=== PATIENT | female | born 1940 | race Caucasian/White ===

== ENCOUNTER 2020-01-10 13:23 | Outpatient (CLI) | payer MEDICARE, SELFPAY ==
--- NOTE | ~2020-01-10 | MMUS_ITS ---
EXAMINATION: MM screen RT diag LT w stephanie, US breast LT limited HISTORY: Screening right breast. Follow-up of left breast masses. TECHNIQUE: ML, MLO and craniocaudal 3-D tomosynthesis images of both breasts were performed and synth etic 2-D images were generated. CAD analysis was submitted and interpreted. High resolution limited l eft follow-up breast ultrasound was performed. COMPARISON: 05/20/2019 diagnostic left digital mammogram and left breast ultrasound BREAST PARENCHYMAL COMPOSITION: The breasts are almost entirely fatty. FINDINGS: MAMMOGRAPHIC FINDINGS: No suspicious mass or architectural distortion, malignant calcification, skin thickening or retractio n or significant new or developing density is detected. Occasional bilateral benign calcifications. ULTRASOUND: At 5:00 2 cm from the nipple there are 2 circumscribed hypoechoic areas without suspicious internal v ascularity or shadowing, one measuring 1.8 x 2.4 x 2.0 mm, the other measuring 5.6 x 2.7 x 3.3 mm. IMPRESSION: 1. No mammographic evidence of malignancy 2. Routine mammographic screening follow-up is recommended BI-RADS Category 2: Benign finding(s). Reviewed, dictated and finalized at location A. IMPRESSION: 1. No mammographic evidence of malignancy 2. Routine mammographic screening follow-up is recommended BI-RADS Category 2: Benign finding(s).
== END 2020-01-10 13:24 | disposition home or self-care (01) ==
PROVIDERS: PCP Family Medicine; Visit Provider Surgery
DX: R92.8 Other abnormal and inconclusive findings on diagnostic imaging of breast (principal); Z12.31 Encounter for screening mammogram for malignant neoplasm of breast
CPT/HCPCS: 76642; 77063; 77065; 77067

== ENCOUNTER 2020-09-19 10:36 | Outpatient (CLI) | payer MEDICARE, SELFPAY | END 2020-09-19 10:37 | disposition home or self-care (01) | PROVIDERS: PCP Family Medicine | DX: Z23 Encounter for immunization (principal) | CPT/HCPCS: 0001A; 91300 ==

== ENCOUNTER 2020-10-10 10:31 | Outpatient (CLI) | payer MEDICARE, SELFPAY | END 2020-10-10 10:32 | disposition home or self-care (01) | LOC: ANHCOVIDVC 10:31 | PROVIDERS: PCP Family Medicine | DX: Z23 Encounter for immunization (principal) | CPT/HCPCS: 0002A; 91300 ==

== ENCOUNTER 2021-02-05 15:59 | Outpatient (CLI) | payer MEDICARE, SELFPAY ==
--- NOTE | ~2021-02-05 | MM_ITS ---
EXAMINATION: MM screening [facility] BI w stephanie HISTORY: Screening TECHNIQUE: Craniocaudal and mediolateral oblique 3-D tomosynthesis images were obtained and synthetic 2-D images were generated. CAD analysis was submitted and interpreted. COMPARISON: Comparison to multiple prior studies sequentially, with oldest reviewed study dated 10/12. BREAST PARENCHYMAL COMPOSITION: There are scattered areas of fibroglandular density. FINDINGS: There is no evidence of suspicious mass, calcification, or architectural distortion to sugg est malignancy in either breast. There has been no suspicious interval change. IMPRESSION: 1. No mammographic evidence of malignancy. 2. Recommend routine screening mammography in one year. BI-RADS Category 1: Negative Reviewed, dictated and finalized at location A.
== END 2021-02-05 16:00 | disposition home or self-care (01) ==
LOC: ANHIMG 16:05
PROVIDERS: PCP Family Medicine; Visit Provider Family Medicine
DX: Z12.31 Encounter for screening mammogram for malignant neoplasm of breast (principal)
CPT/HCPCS: 77063; 77067

== ENCOUNTER 2021-11-18 13:30 | Outpatient (RCR) | payer MEDICARE, SELFPAY ==
--- NOTE | 2021-09-24 16:32 | PTOPEVAL ---
PHYSICAL THERAPY INITIAL EVALUATION. Thank you for referring Ashleigh Serrano to [facility].? The patient is scheduled to be seen for therapy? 2x/week for 4 weeks. Please review, sign, date and return this plan of care MELANIA. I agree with and certify that the following plan of care is medically necessary. Referring Physician Date Attending Provider: Geoff Clement MD *PT Outpatient Evaluation Start: 09/24/21 Evaluation Information Diagnosis Dizziness Onset ~ a year Subjective Information Pt states she has been very Query Text:As Reported By Patient/ wobbly on her feet recently. Family This happened years ago and it was resolved with high BP medication. Now, her BP is still under control, and there is not the wax in her ears. She has a current history of vertigo but her current loss of balance is not due to this. Pt reports one fall in the last 6 months due to loss of balance. Pt is able to get up on her own but it requires increased time. Pt has been using a cane in the community for the last year. Pain Assessment Pain Score 0: Self Report Lower Extremity Range of Motion General Lower Extremity Range of Motion WFL/Left,WFL/Right Lower Extremity Muscle Strength Testing Gross Lower Extremity Strength B hips 4-/5 B knees 4-/5 B ankles 4/5 L SLS: <1s R SLS: <1s Balance Assessment Coe Balance Assessment COE Balance Evaluation Total Score 34/56 Time Up Go (TUG) Timed Up and Go Test (TUG) (Seconds) 15 Assistive Devices Cane, Straight 5 Time Sit to Stand Time in Seconds 19 5 Time Sit to Stand Comments With use of UEs, attempted Query Text:Normative Data: If Greater without UEs and was Than 15 Seconds, 74% Increase Risk for unsuccessful Recurrent Falls Gait Assessment Ambulation Assistive Devices Cane, Small Base Quad Gait Pattern Observed Decreased Stride Length - Left ,Decreased Stride Length - Right,Excessive Knee Flex - Left,Excessive Knee Flex - Right,No Heel Strike - Left,No Heel Strike - Right Other Gait Observations Decreased gait speed, step length, and stride length
--- NOTE | 2021-10-21 16:34 | PTOPEVAL ---
PHYSICAL THERAPY PROGRESS REPORT. Thank you for referring Ashleigh Serrano to [facility] [place].? The patient is scheduled to be seen for therapy? 1x/week for 4 weeks. Please review, sign, date and return this plan of care MELANIA. I agree with and certify that the following plan of care is medically necessary. Referring Physician Date Attending Provider: Geoff Clement MD Evaluation Information Diagnosis Dizziness Onset ~ a year Subjective Information Pt states things are going Query Text:As Reported By Patient/ really well. She states she Family feel more confident at home, and most of the time while she is at work. She got a LE bike that can be placed in front of her chair. Pt states her biggest challenges is still remembering to slow down. If she is standing for too long she will get tired but this has improved. Pt reported 25% improvement. Pain Assessment Pain Score 0: Self Report Lower Extremity Range of Motion General Lower Extremity Range of Motion Reason Not Measured WFL/Left,WFL/Right Lower Extremity Muscle Strength Testing General Lower Extremity Strength Gross Lower Extremity Strength B hips 4-/5 B knees 4-/5 B ankles 4/5 L SLS: <1s R SLS: <1s Balance Assessment Coe Balance Assessment COE Balance Evaluation Total Score (/56 39/56 Time Up Go (TUG) Timed Up and Go Test (TUG) (Seconds) 17 Assistive Devices Cane, Straight Comments Initially: 15s 10/21/21: 17s - pt reports improved confidence 5 Time Sit to Stand Time in Seconds 20 5 Time Sit to Stand Comments Initially: 19s with use of UEs Query Text:Normative Data: If Greater , attempted without UEs and Than 15 Seconds, 74% Increase Risk for was unsuccessful Recurrent Falls 10/21/21: 20s with use of UEs, able to complete 1 without UEs Gait Assessment Gait Pattern Observed Decreased Stride Length - Left ,Decreased Stride Length - Right,Excessive Knee Flex - Left,Excessive Knee Flex - Right,No Heel Strike - Left,No Heel Strike - Right Other Gait Observations Decreased gait speed, step length, and stride length bilaterally. Foot flat contact
--- NOTE | 2021-11-18 14:26 | PTOPEVAL ---
PHYSICAL THERAPY PROGRESS REPORT AND DISCHARGE SUMMARY. Thank you for referring Ashleigh Serrano to [facility].? The patient is scheduled to be discharged at this time. Please review, sign, date and return this plan of care MELANIA. I agree with and certify that the following plan of care is medically necessary. Referring Physician Date Attending Provider: Geoff Clement MD Evaluation Information Diagnosis Unsteadiness Onset ~ a year Subjective Information Pt states she feels like she Query Text:As Reported By Patient/ is making progress. She states Family family members have mentioned that she looks like she is walking better. She states she feel less wobbly on her feet. Pt states she is very pleased with her progress and where she is now. Pain Score 0: Self Report Lower Extremity Range of Motion General Lower Extremity Range of Motion WFL/Left,WFL/Right Lower Extremity Muscle Strength Testing Gross Lower Extremity Strength B hips 4+/5 L knee fleixon/ext 4/5 R knee flexion/ext 4+/5 B ankles 4+/5 L SLS: <1s R SLS: <2s Balance Assessment Coe Balance Assessment COE Balance Evaluation Total Score 44/56 Time Up Go (TUG) Timed Up and Go Test (TUG) (Seconds) 17 Comments Initially: 15s 10/21/21: 17s - pt reports improved confidence 11/18/21: 17s without AD 5 Time Sit to Stand Time in Seconds 20 5 Time Sit to Stand Comments Initially: 19s with use of UEs Query Text:Normative Data: If Greater , attempted without UEs and Than 15 Seconds, 74% Increase Risk for was unsuccessful Recurrent Falls 10/21/21: 20s with use of UEs, able to complete 1 without UEs 11/18/21: 20s with use of UEs, able to complete 2 without UEs Gait Assessment Ambulation Assistive Devices Cane Cues Needed For Ambulation Verbal,Tactile Additional Ambulation Comments Cue for proper height of straight cane and sequencing Gait Pattern Assessment Gait Pattern Observed Decreased Stride Length - Left ,Decreased Stride Length - Right,Excessive Knee Flex - Left,Excessive Knee Flex - Right,No Heel Strike - Left,No Heel Strike - Right Other Gait Observations Decreased gait speed, step
== END 2021-11-20 08:41 | disposition home or self-care (01) ==
LOC: ANHPT 13:30
PROVIDERS: PCP Family Medicine; Referring Provider Family Medicine; Visit Provider Family Medicine
DX: R42 Dizziness and giddiness (principal)
CPT/HCPCS: 97110; 97112; 97116; 97161; 97530

== ENCOUNTER 2022-03-14 09:36 | Outpatient (CLI) | payer MEDICARE, SELFPAY ==
--- NOTE | ~2022-03-14 | MM_ITS ---
EXAMINATION: MM screening [facility] BI w stephanie HISTORY: Screening TECHNIQUE: Craniocaudal and mediolateral oblique 3-D tomosynthesis images were obtained and synthetic 2-D images were generated. CAD analysis was submitted and interpreted. COMPARISON: Comparison to multiple prior studies sequentially, with oldest reviewed study dated 11/01. BREAST PARENCHYMAL COMPOSITION: There are scattered areas of fibroglandular density. FINDINGS: There is no evidence of suspicious mass, calcification, or architectural distortion to sugg est malignancy in either breast. There has been no suspicious interval change. IMPRESSION: 1. No mammographic evidence of malignancy. 2. Recommend routine screening mammography in one year. BI-RADS Category 1: Negative Reviewed, dictated and finalized at location A.
== END 2022-03-14 09:37 | disposition home or self-care (01) ==
LOC: ANHIMG 09:38
PROVIDERS: PCP Family Medicine; Visit Provider Family Medicine
DX: Z12.31 Encounter for screening mammogram for malignant neoplasm of breast (principal)
CPT/HCPCS: 77063; 77067

== ENCOUNTER 2023-06-05 08:38 | Outpatient (CLI) | payer MEDICARE, SELFPAY ==
--- NOTE | ~2023-06-05 | MM_ITS ---
EXAMINATION: MM screening [facility] BI w stephanie HISTORY: Screening mammogram TECHNIQUE: Craniocaudal and mediolateral oblique 3-D tomosynthesis images were obtained and synthetic 2-D images were generated. CAD analysis was submitted and interpreted. COMPARISON: 03/14/2022, 02/05/2021 bilateral screening mammogram examinations BREAST PARENCHYMAL COMPOSITION: There are scattered areas of fibroglandular density. FINDINGS: Scattered bilateral benign calcifications. There is no evidence of suspicious mass, calcifi cation, or architectural distortion to suggest malignancy in either breast. There has been no suspici ous interval change. IMPRESSION: 1. No mammographic evidence of malignancy. 2. Recommend routine screening mammography in one year. BI-RADS Category 2: Benign finding(s). Reviewed, dictated and finalized at location B. TABLE SCULLION
== END 2023-06-05 08:39 | disposition home or self-care (01) ==
PROVIDERS: PCP Family Medicine; Visit Provider Family Medicine
DX: Z12.31 Encounter for screening mammogram for malignant neoplasm of breast (principal)
CPT/HCPCS: 77063; 77067

== ENCOUNTER 2024-06-23 14:11 | Emergency (ER) | payer OTHER, MEDICARE, SELFPAY ==
--- NOTE | ~2024-06-23 | XR_ITS ---
XR chest 2V Ordering provider: Edmundo Bustamante MD History: 84 years Female with . right sided chest wall pain . Comparison: None. FINDINGS: MEDIASTINUM: The cardiac silhouette is not enlarged. LUNGS: No infiltrates, effusions or pneumothorax. OTHER: No free air under the diaphragm. Degenerative changes of the spine. IMPRESSION: No acute cardiopulmonary pathology. Reviewed, dictated and finalized at location A. ATE WATCHMAN
[2024-06-23 14:39] VITALS: BP 144/88; PULSE 76; RESP 18; TEMP 36.2; O2SAT 97
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
--- NOTE | 2024-06-23 17:04 | PC.NURSE ---
PT SEEN AMBULATING FROM THE DEPT.
== END 2024-06-23 17:26 | disposition home or self-care (01) ==
PROVIDERS: Emergency Provider Emergency Medicine; PCP Family Medicine
DX: S61.412A Laceration without foreign body of left hand, initial encounter (principal); W22.10XA Striking against or struck by unspecified automobile airbag, initial encounter; V89.2XXA Person injured in unspecified motor-vehicle accident, traffic, initial encounter; R07.89 Other chest pain; I10 Essential (primary) hypertension; E78.2 Mixed hyperlipidemia; E11.9 Type 2 diabetes mellitus without complications
CPT/HCPCS: 71046; 99283

== ENCOUNTER 2024-08-19 08:34 | Outpatient (CLI) | payer MEDICARE, SELFPAY ==
--- NOTE | ~2024-08-19 | NM_ITS ---
EXAM: NM gastric emptying study DATE: 08/19/2024 13:32 INDICATION: Nausea with vomiting, unspecified. TECHNIQUE: A gastric emptying study was performed using the methodology of Roxie MCCONNELL, et al. J Nucl Med 2007; 48:568-572. The patient was given a meal consisting of 2 scrambled eggs labeled with 0.979 mCi Tc-99m sulfur colloid, 2 slices of toast, two packages of jam, and approximately 120 mL of water . Simultaneous anterior and posterior 1-min images of the abdomen were obtained with the patient supi ne at multiple time points over a total period of 4 hours. The geometric mean of anterior and posteri or views was determined, and the percentage retention was calculated for each time point. COMPARISON: None. FINDINGS: Gastric retention of the radiotracer-labeled meal was 77%, 55%, and 27% at the 1-hour, 2-h our, and 4-hour time points, respectively. With this technique, apparent rapid gastric emptying is jara ggested by <30% gastric retention at 1 hour. Delayed gastric emptying is defined by gastric retention of >90% at 1 hour, >60% retention at 2 hours, or >10% retention at 4 hours. IMPRESSION: 1. Delayed gastric emptying. Reviewed, dictated and finalized at location A. S DEVELOPMENT SPECIALIST
--- OUTSIDE RECORDS SUMMARY | 2024-08-19 08:42 | XMS_ITS | Referral Summary ---
Author Organization [facility] Address [address] [place] [address] Care Team Providers Care Liquor Rectifier Name Role Phone Geoff Clement MD Primary Care Provider [phone] Source Comments [facility],non-owned Affiliates and Associated Physician Practices is amultiple site organization consisting of ambulatory clinics and hospital sitesin [place], [place], [place] and [place]. This disclosure is being madepursuant to the Care Everywhere program and may not contain all information available regarding this patient. Last updated [facility] Encounters Date Type Department Care Team Description 06/26/2024 11:48 AM HOT BRAIDER - 07/15/2024 2:18 PM [facility] Hospital Encounter [facility] [address] [place] [phone] Calderon Sim MD Bisesi, DO Danie Poe Randall C, MD Behr, MD Leander Rausch Fajun, MD Hayat, Ghazala S, MD Soudagar Turkey, Momina, MD Chinnery, Akrin, MD Neurology Discharge Disposition: Rehab:Inpatient 06/26/2024 Travel from Last 3 Months Allergies No known active allergies Medications * Be aware that medications may not be up to date on this document. Alwaysverify current medications with the patient. Medication Sig Dispensed Refills Start Date End Date Status benazepril (Lotensin) 40 MG tablet Take 1 (one) tablet by mouth once daily 04/07/2024 Active metFORMIN ER 24hr (Glucophage XR) 500 MG tablet Take 4 (four) tablets by mouth once daily 05/09/2024 Active Trulicity 0.75 MG/0.5ML injection Inject 0.75 (three-quarters) mg subcutaneously every 7 days 06/22/2024 Active amLODIPine (Norvasc) 5 MG tablet Take 1 (one) tablet by mouth once daily 07/16/2024 Active atorvastatin (Lipitor) 80 MG tablet Take 1 (one) tablet by mouth at bedtime 07/15/2024 Active acetaminophen (Tylenol) 325 MG tablet Take 2 (two) tablets by mouth every 6 hours as needed Maximum allowable Acetaminophen amount = 4 Grams (4000 mg) / 24 hours. 07/15/2024 Active aspirin (Aspirin) 81 MG chew tablet Take 1 (one) tablet by mouth once daily 07/16/2024 Active levETIRAcetam (Keppra) 750 MG tablet Take 2 (two) tablets by mouth 2 times daily 07/15/2024 Active lidocaine (Lidoderm) 5 % patch Apply 1 (one) patch to skin every 24 hours Apply patch to most painful area and remove after 12 hours. May reapply a new patch 12 hours later. 07/16/2024 Active loperamide (Imodium) 2 MG capsule Take 1 (one) capsule by mouth 4 times daily as needed for Diarrhea 07/15/2024 Active cephalexin (Keflex) 500 MG capsuleIndication s:Uncomplicated Urinary Tract Infection Take 1 (one) capsule by mouth 2 times daily for 7 days Reasons: Simple Infection of the Urinary Tract 07/15/2024 07/22/2024 Active Problems Problem Noted Date Diagnosed Date Seizure 07/06/2024 DMII (diabetes mellitus, type 2) 06/27/2024 HLD (hyperlipidemia) 06/27/2024 HTN (hypertension) 06/27/2024 Arthritis 06/27/2024 History of knee replacement procedure of left kn ee 06/27/2024 Left-sided weakness 06/27/2024 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 Neglect of one side of body 06/27/2024 Altered mental status, unspe cified altered mental status type 06/26/2024 Hemothorax on right 06/26/2024 Closed fracture of body of sternum, initial enco unter 06/26/2024 Closed fracture of multiple ribs of right side, initial encounter 06/26/2024 Social History Tobacco Use Types Packs/Day Years Used Date Smoking Tobacco: Former Cigarettes Smokeless Tobacco: Current Tobacco Cessation:Ready to Q uit: Not Asked; Counseling Given: No Alcohol Use Standard Drinks/Week Comments Not Currently 0 (1 standard drink = 0.6 oz pur e alcohol) AUDIT-C Answer Date Recorded Q1: How often do you have a drink containing alcohol? Never 06/26/2024 Q2: How many drinks containi ng alcohol do you have on a typical day when you are drinking? Patient does not drink Q3: How often do you have si x or more drinks on one occasion? Never 06/26/2024 Overall Financial Resource Strain (CARDIA) Answe r Date Recorded How hard is it for you to pa y for the very basics like food, housing, medical care, and heating? Not very hard 07/15/2024 PHQ-2 Answer Date Recorded Patient Health Questionnaire-2 Score 0 07/07/2024 [facility] - Occupational Stress Questionnaire Answer Date Recorded Do you feel stress - tense, restless, nervous, or anxious, or unable to sleep at night because your mind is troubled all the time - these days? Not at all 07/15/2024 Hunger Vital Sign Answer Date Recorded Within the past 12 months, y ou worried that your food would run out before you got the money to buy more. Never true 07/15/20 24 Within the past 12 months, t he food you bought just didn't last and you didn't have money to get more. Never true 07/15/2024 PRAPARE - Transportation Answer Date Re corded In the past 12 months, has l ack of transportation kept you from medical appointments or from getting medications? No 06/20 In the past 12 months, has l ack of transportation kept you from meetings, work, or from getting things needed for daily living? No 07/15/2024 Housing Stability Vital Sign Answer Javy e Recorded In the last 12 months, was t here a time when you were not able to pay the mortgage or rent on time? Yes 07/15/2024 Number of Times Moved in the Last Year Not on fi le 07/15/2024 At any time in the [facility], were you homeless or living in a jail (including now)? No 07/15/2024 Sex and Gender Information Value Date Recorded Sex Assigned at Not on file Gender Identity Not on file Sexual Orientation Not on file Last Filed Vital Signs Vital Sign Reading Time Taken Comments Blood Pressure 103/67 07/15/2024 9:15 AM HOT BRAIDER Pulse 80 07/15/2024 9:15 AM HOT BRAIDER Temperature 36.9 ??C (98.5 ??F) 07/15/2024 9:15 AM CS T Respiratory Rate 18 07/15/2024 9:15 AM HOT BRAIDER Oxygen Saturation 96% 07/15/2024 9:15 AM HOT BRAIDER Inhaled Oxygen Concentration - - Weight 81.6 kg (180 lb) 06/30/2024 9:03 AM HOT BRAIDER Height 172.7 cm (5' 7.99 ) 06/30/2024 9:03 AM CS T Body Mass Index 27.38 06/30/2024 9:03 AM HOT BRAIDER Functional Status Functional Status Response Date of Assess ment Is person deaf or have serious hearing difficult y? No 06/27/2024 Is person blind or have serious difficulty seein g? No 06/27/2024 Does person have serious dif ficulty walking/climbing stairs? Yes 06/27/2024 Does person have difficulty dressing/bathing? Ye s 06/27/2024 Does person have difficulty doing errands alone? Yes 06/27/2024 Cognitive Status Response Date of Assessm ent Does person have difficulty concentrating/remembering/making decisions? Yes 06/27/2024 Plan of Treatment Upcoming Encounters Date Type Department Care Team (Late st Contact Info) Description 12/13/2024 8:00 AM CDT Office Visit [facility] - Neurology [address] [facility] [place] [address] Tammy Alatorre PA-C [address] [place] [address] Procedures Procedure Name Priority Date/Time Associated Diagnosis Comments GLUCOSE - POINT OF CARE Routine 07/15/20 10:58 AM HOT BRAIDER URINALYSIS REFLEX TO MICROSCOPIC NO CULTURE Routine 07/15/2024 9:49 AM HOT BRAIDER GLUCOSE - POINT OF CARE Routine 07/15/20 7:19 AM HOT BRAIDER GLUCOSE - POINT OF CARE Routine 07/14/20 8:37 PM HOT BRAIDER BASIC METABOLIC PANEL (CALCIUM TOTAL) Routine 07/14/2024 7:18 PM HOT BRAIDER CBC W/O DIFFERENTIAL Routine 07/14/2024 7:18 PM HOT BRAIDER GLUCOSE - POINT OF CARE Routine 07/14/20 4:09 PM HOT BRAIDER GLUCOSE - POINT OF CARE Routine 07/14/20 11:09 AM HOT BRAIDER GLUCOSE - POINT OF CARE Routine 07/14/20 7:06 AM HOT BRAIDER GLUCOSE - POINT OF CARE Routine 07/13/20 9:03 PM HOT BRAIDER GASTROINTESTINAL PATHOGEN PANEL BY PCR Routine 07/13/2024 2:47 PM HOT BRAIDER GLUCOSE - POINT OF CARE Routine 07/13/20 11:38 AM HOT BRAIDER GLUCOSE - POINT OF CARE Routine 07/13/20 7:37 AM HOT BRAIDER GLUCOSE - POINT OF CARE Routine 07/13/20 5:29 AM HOT BRAIDER CBC W/O DIFFERENTIAL Routine 07/13/2024 12:57 AM HOT BRAIDER BASIC METABOLIC PANEL (CALCIUM TOTAL) Routine 07/13/2024 12:57 AM HOT BRAIDER GLUCOSE - POINT OF CARE Routine 07/12/20 9:27 PM HOT BRAIDER GLUCOSE - POINT OF CARE Routine 07/12/20 9:16 PM HOT BRAIDER GLUCOSE - POINT OF CARE Routine 07/12/20 11:37 AM HOT BRAIDER GLUCOSE - POINT OF CARE Routine 07/12/20 7:18 AM HOT BRAIDER GLUCOSE - POINT OF CARE Routine 07/11/20 4:35 PM HOT BRAIDER GLUCOSE - POINT OF CARE Routine 07/11/20 11:43 AM HOT BRAIDER GLUCOSE - POINT OF CARE Routine 07/11/20 7:31 AM HOT BRAIDER CBC W/O DIFFERENTIAL Routine 07/11/2024 5:44 AM HOT BRAIDER BASIC METABOLIC PANEL (CALCIUM TOTAL) Routine 07/11/2024 5:44 AM HOT BRAIDER GLUCOSE - POINT OF CARE Routine 07/10/20 8:40 PM HOT BRAIDER GLUCOSE - POINT OF CARE Routine 07/10/20 5:00 PM HOT BRAIDER GLUCOSE - POINT OF CARE Routine 07/10/20 11:51 AM HOT BRAIDER CBC W/O DIFFERENTIAL Routine 07/10/2024 7:32 AM HOT BRAIDER BASIC METABOLIC PANEL (CALCIUM TOTAL) Routine 07/10/2024 7:32 AM HOT BRAIDER GLUCOSE - POINT OF CARE Routine 07/10/20 7:31 AM HOT BRAIDER GLUCOSE - POINT OF CARE Routine 07/10/20 6:16 AM HOT BRAIDER GLUCOSE - POINT OF CARE Routine 07/10/20 12:52 AM HOT BRAIDER GLUCOSE - POINT OF CARE Routine 07/09/20 9:26 PM HOT BRAIDER GLUCOSE - POINT OF CARE Routine 07/09/20 12:20 PM HOT BRAIDER XR CHEST 1VW PORTABLE STAT 07/09/2024 9:51 AM HOT BRAIDER Hypotension, unspecified hypotension type GLUCOSE - POINT OF CARE Routine 07/09/20 7:59 AM HOT BRAIDER GLUCOSE - POINT OF CARE Routine 07/09/20 5:56 AM HOT BRAIDER PHOSPHORUS BLOOD Routine 07/09/2024 3:02 AM HOT BRAIDER MAGNESIUM BLOOD Routine 07/09/2024 3:02 AM HOT BRAIDER CBC W/O DIFFERENTIAL Routine 07/09/2024 3:02 AM HOT BRAIDER BASIC METABOLIC PANEL (CALCIUM TOTAL) Routine 07/09/2024 3:02 AM HOT BRAIDER GLUCOSE - POINT OF CARE Routine 07/08/20 11:19 PM HOT BRAIDER GLUCOSE - POINT OF CARE Routine 07/08/20 9:04 PM HOT BRAIDER GLUCOSE - POINT OF CARE Routine 07/08/20 3:44 PM HOT BRAIDER GLUCOSE - POINT OF CARE Routine 07/08/20 11:53 AM HOT BRAIDER GLUCOSE - POINT OF CARE Routine 07/08/20 7:41 AM HOT BRAIDER GLUCOSE - POINT OF CARE Routine 07/08/20 5:25 AM HOT BRAIDER PHOSPHORUS BLOOD Routine 07/08/2024 2:24 AM HOT BRAIDER MAGNESIUM BLOOD Routine 07/08/2024 2:24 AM HOT BRAIDER CBC W/O DIFFERENTIAL Routine 07/08/2024 2:24 AM HOT BRAIDER BASIC METABOLIC PANEL (CALCIUM TOTAL) Routine 07/08/2024 2:24 AM HOT BRAIDER GLUCOSE - POINT OF CARE Routine 07/08/20 12:19 AM HOT BRAIDER GLUCOSE - POINT OF CARE Routine 07/07/20 8:34 PM HOT BRAIDER GLUCOSE - POINT OF CARE Routine 07/07/20 4:13 PM HOT BRAIDER GLUCOSE - POINT OF CARE Routine 07/07/20 11:26 AM HOT BRAIDER GLUCOSE - POINT OF CARE Routine 07/07/20 7:43 AM HOT BRAIDER GLUCOSE - POINT OF CARE Routine 07/07/20 5:41 AM HOT BRAIDER PHOSPHORUS BLOOD Routine 07/07/2024 2:28 AM HOT BRAIDER MAGNESIUM BLOOD Routine 07/07/2024 2:28 AM HOT BRAIDER CBC W/O DIFFERENTIAL Routine 07/07/2024 2:28 AM HOT BRAIDER BASIC METABOLIC PANEL (CALCIUM TOTAL) Routine 07/07/2024 2:28 AM HOT BRAIDER GLUCOSE - POINT OF CARE Routine 07/07/20 12:18 AM HOT BRAIDER GLUCOSE - POINT OF CARE Routine 07/06/20 8:09 PM HOT BRAIDER GLUCOSE - POINT OF CARE Routine 07/06/20 4:57 PM HOT BRAIDER GLUCOSE - POINT OF CARE Routine 07/06/20 11:54 AM HOT BRAIDER PHOSPHORUS BLOOD Routine 07/06/2024 2:55 AM HOT BRAIDER MAGNESIUM BLOOD Routine 07/06/2024 2:55 AM HOT BRAIDER CBC W/O DIFFERENTIAL Routine 07/06/2024 2:55 AM HOT BRAIDER BASIC METABOLIC PANEL (CALCIUM TOTAL) Routine 07/06/2024 2:55 AM HOT BRAIDER GLUCOSE - POINT OF CARE Routine 07/05/20 11:27 PM HOT BRAIDER GLUCOSE - POINT OF CARE Routine 07/05/20 8:19 PM HOT BRAIDER GLUCOSE - POINT OF CARE Routine 07/05/20 5:56 AM HOT BRAIDER PHOSPHORUS BLOOD Routine 07/05/2024 2:0 8 AM HOT BRAIDER MAGNESIUM BLOOD Routine 07/05/2024 2:08 AM HOT BRAIDER CBC W/O DIFFERENTIAL Routine 07/05/2024 2:08 AM HOT BRAIDER BASIC METABOLIC PANEL (CALCIUM TOTAL) Routine 07/05/2024 2:08 AM HOT BRAIDER XR ABDOMEN KUB PORTABLE STAT 07/05/20 1:02 AM HOT BRAIDER Altered mental status, unspecified altered mental status type Right sided weakness Left-sided weakness GLUCOSE - POINT OF CARE Routine 07/05/20 12:28 AM HOT BRAIDER GLUCOSE - POINT OF CARE Routine 07/04/20 3:28 PM HOT BRAIDER XR CHEST 1VW PORTABLE Routine 07/04/2024 2:48 PM HOT BRAIDER Other cough GLUCOSE - POINT OF CARE Routine 07/04/20 12:39 PM HOT BRAIDER GLUCOSE - POINT OF CARE Routine 07/04/20 6:47 AM HOT BRAIDER PHOSPHORUS BLOOD Routine 07/04/2024 3:17 AM HOT BRAIDER MAGNESIUM BLOOD Routine 07/04/2024 3:17 AM HOT BRAIDER CBC W/O DIFFERENTIAL Routine 07/04/2024 3:17 AM HOT BRAIDER BASIC METABOLIC PANEL (CALCIUM TOTAL) Routine 07/04/2024 3:17 AM HOT BRAIDER GLUCOSE - POINT OF CARE Routine 07/04/20 1:20 AM HOT BRAIDER GLUCOSE - POINT OF CARE Routine 07/03/20 5:42 PM HOT BRAIDER GLUCOSE - POINT OF CARE Routine 07/03/20 1:20 PM HOT BRAIDER GLUCOSE - POINT OF CARE Routine 07/03/20 6:21 AM HOT BRAIDER PHOSPHORUS BLOOD Routine 07/03/2024 3:41 AM HOT BRAIDER MAGNESIUM BLOOD Routine 07/03/2024 3:41 AM HOT BRAIDER CBC W/O DIFFERENTIAL Routine 07/03/2024 3:41 AM HOT BRAIDER BASIC METABOLIC PANEL (CALCIUM TOTAL) Routine 07/03/2024 3:41 AM HOT BRAIDER GLUCOSE - POINT OF CARE Routine 07/03/20 1:18 AM HOT BRAIDER GLUCOSE - POINT OF CARE Routine 07/02/20 5:17 PM HOT BRAIDER GLUCOSE - POINT OF CARE Routine 07/02/20 12:01 PM HOT BRAIDER GLUCOSE - POINT OF CARE Routine 07/02/20 5:23 AM HOT BRAIDER PHOSPHORUS BLOOD Routine 07/02/2024 1:59 AM HOT BRAIDER MAGNESIUM BLOOD Routine 07/02/2024 1:59 AM HOT BRAIDER CBC W/O DIFFERENTIAL Routine 07/02/2024 1:59 AM HOT BRAIDER BASIC METABOLIC PANEL (CALCIUM TOTAL) Routine 07/02/2024 1:59 AM HOT BRAIDER GLUCOSE - POINT OF CARE Routine 07/01/20 11:54 PM HOT BRAIDER GLUCOSE - POINT OF CARE Routine 07/01/20 5:22 PM HOT BRAIDER GLUCOSE - POINT OF CARE Routine 07/01/20 11:35 AM HOT BRAIDER GLUCOSE - POINT OF CARE Routine 07/01/20 5:31 AM HOT BRAIDER PHOSPHORUS BLOOD Routine 06/30/2024 11:2 3 PM HOT BRAIDER MAGNESIUM BLOOD Routine 06/30/2024 11:23 PM HOT BRAIDER CBC W/O DIFFERENTIAL Routine 06/30/2024 11:23 PM HOT BRAIDER BASIC METABOLIC PANEL (CALCIUM TOTAL) Routine 06/30/2024 11:23 PM HOT BRAIDER CBC W/O DIFFERENTIAL Routine 06/30/2024 2:53 PM HOT BRAIDER BASIC METABOLIC PANEL (CALCIUM TOTAL) Routine 06/30/2024 2:53 PM HOT BRAIDER GLUCOSE - POINT OF CARE Routine 06/30/20 2:22 PM HOT BRAIDER GLUCOSE - POINT OF CARE Routine 06/30/20 12:44 PM HOT BRAIDER GLUCOSE - POINT OF CARE Routine 06/30/20 5:59 AM HOT BRAIDER TSH REFLEX FREE T4 Routine 06/30/2024 3: 36 AM HOT BRAIDER PHOSPHORUS BLOOD Routine 06/30/2024 3:36 AM HOT BRAIDER MAGNESIUM BLOOD Routine 06/30/2024 3:36 AM HOT BRAIDER CBC W/O DIFFERENTIAL Routine 06/30/2024 3:36 AM HOT BRAIDER BASIC METABOLIC PANEL (CALCIUM TOTAL) Routine 06/30/2024 3:36 AM HOT BRAIDER GLUCOSE - POINT OF CARE Routine 06/29/20 11:42 PM HOT BRAIDER GLUCOSE - POINT OF CARE Routine 06/29/20 11:11 PM HOT BRAIDER GLUCOSE - POINT OF CARE Routine 06/29/20 4:44 PM HOT BRAIDER ECHO COMPLETE W CONTRAST W BUBBLE STUDY Routine 06/29/2024 3:17 PM HOT BRAIDER Right sided weakness GLUCOSE - POINT OF CARE Routine 06/29/20 12:24 PM HOT BRAIDER GLUCOSE - POINT OF CARE Routine 06/29/20 8:22 AM HOT BRAIDER XR CHEST 1VW PORTABLE Routine 06/29/2024 8:05 AM HOT BRAIDER Right sided weakness GLUCOSE - POINT OF CARE Routine 06/29/20 5:54 AM HOT BRAIDER PHOSPHORUS BLOOD Routine 06/29/2024 2:27 AM HOT BRAIDER MAGNESIUM BLOOD Routine 06/29/2024 2:27 AM HOT BRAIDER CBC W/O DIFFERENTIAL Routine 06/29/2024 2:27 AM HOT BRAIDER BASIC METABOLIC PANEL (CALCIUM TOTAL) Routine 06/29/2024 2:27 AM HOT BRAIDER GLUCOSE - POINT OF CARE Routine 06/29/20 12:11 AM HOT BRAIDER GLUCOSE - POINT OF CARE Routine 06/28/20 9:14 PM HOT BRAIDER GLUCOSE - POINT OF CARE Routine 06/28/20 12:33 PM HOT BRAIDER XR CHEST 1VW PORTABLE Routine 06/28/2024 8:22 AM HOT BRAIDER Right sided weakness CARDIAC EKG ORDER 06/28/2024 8:0 4 AM HOT BRAIDER GLUCOSE - POINT OF CARE Routine 06/28/20 6:21 AM HOT BRAIDER PHOSPHORUS BLOOD STAT 06/28/2024 2:56 AM HOT BRAIDER MAGNESIUM BLOOD STAT 06/28/2024 2:56 AM HOT BRAIDER CBC W/O DIFFERENTIAL Routine 06/28/2024 2:56 AM HOT BRAIDER BASIC METABOLIC PANEL (CALCIUM TOTAL) Routine 06/28/2024 2:56 AM HOT BRAIDER GLUCOSE - POINT OF CARE Routine 06/28/20 12:35 AM HOT BRAIDER GLUCOSE - POINT OF CARE Routine 06/27/20 10:21 PM HOT BRAIDER GLUCOSE - POINT OF CARE Routine 06/27/20 8:21 PM HOT BRAIDER XR ABDOMEN KUB PORTABLE STAT 06/27/20 1:09 PM HOT BRAIDER Dysphagia, unspecified type GLUCOSE - POINT OF CARE Routine 06/27/20 7:56 AM HOT BRAIDER GLUCOSE - POINT OF CARE Routine 06/27/20 5:25 AM HOT BRAIDER XR CHEST 1VW PORTABLE Routine 06/27/2024 4:57 AM HOT BRAIDER Hemothorax on right LIPID PROFILE STAT 06/27/2024 1:23 AM HOT BRAIDER CBC W/O DIFFERENTIAL STAT 06/27/2024 1:23 AM HOT BRAIDER BASIC METABOLIC PANEL (CALCIUM TOTAL) STAT 06/27/2024 1:23 AM HOT BRAIDER HEMOGLOBIN A1C Add on 06/27/2024 1:23 AM HOT BRAIDER GLUCOSE - POINT OF CARE Routine 06/27/20 1:15 AM HOT BRAIDER TROPONIN-I HIGH SENSITIVE REFLEX 1HOUR Timed 06/26/2024 11:05 PM HOT BRAIDER GLUCOSE - POINT OF CARE Routine 06/26/20 9:23 PM HOT BRAIDER MRI BRAIN WO CONTRAST STAT 06/26/2024 8:50 PM HOT BRAIDER Altered mental status, unspecified altered mental status type Closed fracture of body of sternum, initial encounter Closed fracture of multiple ribs of right side, initial encounter Hemothorax on right TROPONIN-I HIGH SENSITIVE BASELINE + 1HR STAT 06/26/2024 5:54 PM HOT BRAIDER TROPONIN-I HIGH SENSITIVE REFLEX 1HOUR Timed 06/26/2024 5:54 PM HOT BRAIDER PT EVAL AND TREAT Routine 06/26/2024 5:4 8 PM HOT BRAIDER OT EVAL AND TREAT Routine 06/26/2024 5:4 8 PM HOT BRAIDER URINE MICROSCOPIC ONLY REFLEX TO CULTURE STAT 06/26/2024 5:40 PM HOT BRAIDER URINALYSIS REFLEX MICROSCOPIC REFLEX CULTURE STAT 06/26/2024 5:40 PM HOT BRAIDER CULTURE URINE STAT 06/26/2024 5:40 PM HOT BRAIDER CULTURE BLOOD Timed 06/26/2024 4:56 PM HOT BRAIDER CULTURE BLOOD Timed 06/26/2024 4:48 PM HOT BRAIDER TROPONIN-I HIGH SENSITIVE BASELINE + 1HR STAT 06/26/2024 4:36 PM HOT BRAIDER LACTIC ACID BLOOD REFLEX TO REPEAT STAT 06/26/2024 4:36 PM HOT BRAIDER URINE DRUG SCREEN IMMUNOASSAY STAT 06/26/2024 2:39 PM HOT BRAIDER BLOOD TYPE VERIFICATION STAT 06/26/20 1:39 PM HOT BRAIDER TROPONIN-I HIGH SENSITIVE REFLEX 1HOUR Timed 06/26/2024 1:[address] ANGIO BRAIN NECK STROKE STAT 06/26/2024 12:50 PM HOT BRAIDER Altered mental status, unspecified altered mental status type CT FACIAL BONES WO CONTRAST STAT 06/26/2024 12:50 PM HOT BRAIDER Altered mental status, unspecified altered mental status type CT LUMBAR SPINE WO CONTRAST STAT 06/26/2024 12:50 PM HOT BRAIDER Altered mental status, unspecified altered mental status type CT THORACIC SPINE WO CONTRAST STAT 06/26/2024 12:50 PM HOT BRAIDER Altered mental status, unspecified altered mental status type CT CHEST ABDOMEN PELVIS W CONT STAT 06/26/2024 12:50 PM HOT BRAIDER Altered mental status, unspecified altered mental status type CT CERVICAL SPINE WO CONTRAST STAT 06/26/2024 12:50 PM HOT BRAIDER Altered mental status, unspecified altered mental status type CT BRAIN STROKE STAT 06/26/2024 12:50 PM HOT BRAIDER Altered mental status, unspecified altered mental status type XR CHEST 1VW PORTABLE STAT 06/26/2024 12:40 PM HOT BRAIDER Altered mental status, unspecified altered mental status type EKG 12-LEAD Routine 06/26/2024 12:30 PM HOT BRAIDER Altered mental status, unspecified altered mental status type TYPE + SCREEN PANEL STAT 06/26/2024 1 2:25 PM HOT BRAIDER TROPONIN-I HIGH SENSITIVE BASELINE + 1HR STAT 06/26/2024 12:25 PM HOT BRAIDER PTT SLH STAT 06/26/2024 12:25 PM HOT BRAIDER PT-INR [facility] STAT 06/26/2024 12:25 PM HOT BRAIDER LIPASE BLOOD STAT 06/26/2024 12:25 PM HOT BRAIDER CBC W AUTO DIFFERENTIAL STAT 06/26/20 12:25 PM HOT BRAIDER BASIC METABOLIC PANEL (CALCIUM TOTAL) STAT 06/26/2024 12:25 PM HOT BRAIDER AMYLASE BLOOD STAT 06/26/2024 12:25 PM HOT BRAIDER ALCOHOL ETHYL BLOOD STAT 06/26/2024 1 2:25 PM HOT BRAIDER from Last 3 Months Results * (ABNORMAL) GLUCOSE - POINT OF CARE (07/15/2024 10:58 AM HOT BRAIDER) Only the most recent of82 resultswithin the time period is included. Glucose WB/POC 183(H) 70 - 99 mg/dL 07/15/2024 4:10 PM [facility] Specimen Type Arterial 07/15/2024 4:10 PM [facility] Blood BLOOD SPECIMEN / Unknown 07/15/2024 10:58 AM HOT BRAIDER 07/15/2024 4:09 PM HOT BRAIDER Edwin Sánchez MD LAB - POINT OF CARE ORDERABLES [facility] [address] [place] [phone], [facility] [phone] * (ABNORMAL) URINALYSIS REFLEX TO MICROSCOPIC NO CULTURE (07/15/2024 9:49 AM HOT BRAIDER) Color UA Yellow Straw, Yellow 07/15/2024 10:00 AM [facility] Clarity UA Cloudy(A) Clear 07/15/2024 10:00 AM [facility] Specific [place] UA 1.012 1.005 - 1.030 07/15/2024 10:00 AM [facility] pH UA 5.0 5.0 - 8.0 pH 07/15/2024 10:00 AM [facility] Protein UA Negative Negative 07/15/2024 10:00 AM [facility] Glucose UA Negative Negative 07/15/2024 10:00 AM [facility] Ketone UA Negative Negative 07/15/2024 10:00 AM [facility] Bilirubin UA Negative Negative 07/15/2024 10:00 AM [facility] Blood UA 2+(A) Negative 07/15/2024 10:00 AM [facility] Nitrite UA Negative Negative 07/15/2024 10:00 AM [facility] Leukocyte Esterase 3+(A) Negative 07/15/2024 10:00 AM [facility] Urobilinogen UA Negative Negative mg/dL 07/15/2024 10:00 AM [facility] RBC UA 11-20(A) None Seen, 0-2, 3-5 /HPF 07/15/2024 10:00 AM [facility] WBC UA >100(A) None Seen, 0-5 /HPF 07/15/2024 10:00 AM [facility] Bacteria UA 1+(A) None /HPF 07/15/2024 10:00 AM [facility] Squamous Epithelial Cells UA 6-10(A) None Seen, 0-2, 3-5 /HPF 07/15/2024 10:00 AM [facility] Transitional Epithelial Cells UA 0-2(A) None Seen /HPF 07/15/2024 10:00 AM [facility] Mucus UA 1+ /LPF 07/15/2024 10:00 AM [facility] Urine URINE SPECIMEN OBTAINED BY CLEAN CATCH PROCEDURE / Unknown 07/15/2024 9:49 AM [facility] 07/15/2024 9:49 AM [facility] - 07/15/2024 10:00 AM [facility] Edwin Sánchez MD LAB - URINALYSIS ORD ERABLES [facility] [address] [place] [id number], [facility] [phone] * (ABNORMAL) CBC W/O DIFFERENTIAL (07/14/2024 7:18 PM [facility]) Only the most recent of18 resultswithin the time period is included. WBC 10.8(H) 4.0 - 10.7 x10E9/L 07/14/2024 7:54 PM [facility] RBC Count 3.20(L) 3.90 - 5.20 x10E12/L 07/14/2024 7:54 PM [facility] Hemoglobin 10.2(L) 11.9 - 15.8 g/dL 07/14/2024 7:54 PM [facility] Hematocrit 29.8(L) 34.8 - 46.1 % 07/14/2024 7:54 PM [facility] MCV 93.1 80.0 - 98.0 fL 07/14/2024 7:54 PM [facility] MCH 31.9 26.7 - 33.6 pg 07/14/2024 7:54 PM [facility] MCHC 34.2 31.7 - 36.3 g/dL 07/14/2024 7:54 PM [facility] RDW-CV 15.1(H) 11.3 - 14.8 % 07/14/2024 7:54 PM [facility] Platelet Count 203 150 - 420 x10E9/L 07/14/2024 7:54 PM [facility] MPV 9.9 7.8 - 11.4 fL 07/14/2024 7:54 PM [facility] Blood BLOOD SPECIMEN / Unknown Lab Venipuncture / Unknown 07/14/2024 7:18 PM [facility] 07/14/2024 7:44 PM [facility] Edwin Sánchez MD LAB - HEMATOLOGY ORD ERABLES [facility] [address] [place] [id number], [facility] [phone] * (ABNORMAL) BASIC METABOLIC PANEL (CALCIUM TOTAL) (07/14/2024 7:18 PM [facility]) Only the most recent of19 resultswithin the time period is included. BUN 20 7 - 26 mg/dL 07/14/2024 8:16 PM [facility] Creatinine 0.82 0.56 - 0.96 mg/dL 07/14/2024 8:16 PM [facility] Sodium 136 136 - 145 mmol/L 07/14/2024 8:16 [facility] CARE Potassium 4.4 3.5 - 4.5 mmol/L 07/14/2024 8:16 PM [facility] Chloride 106 98 - 107 mmol/L 07/14/2024 8:16 PM [facility] CO2 21(L) 22 - 29 mmol/L 07/14/2024 8:16 PM [facility] Glucose 151(H) 70 - 99 mg/dL 07/14/2024 8:16 PM [facility] Calcium 7.9(L) 8.4 - 10.2 mg/dL 07/14/2024 8:16 PM [facility] Anion Gap 9 6 - 16 07/14/2024 8:16 PM [facility] BUN/Creatinine Ratio 24(H) 7 - 23 07/14/2024 8:16 PM [facility] Osmolality Calculated 288 275 - 295 mOsm/kg 07/14/2024 8:16 PM [facility] eGFR by CKD-EPI 70(L) >=90 mL/min/1.7 3 m2 07/14/2024 8:16 PM [facility] Blood BLOOD SPECIMEN / Unknown Lab Venipuncture / Unknown 07/14/2024 7:18 PM HOT BRAIDER 07/14/2024 7:44 PM HOT BRAIDER Edwin Sánchez MD LAB - CHEMISTRY [facility] Organization Address City/State/ZIP Co de Phone Number [facility] [address] [place] [address], [facility] [phone] * GASTROINTESTINAL PATHOGEN PANEL BY PCR (07/13/2024 2:47 PM HOT BRAIDER) Campylobacter Not detected Not detected 07/13/2024 5:04 PM [facility] Plesiomonas shigelloides Not detected Not detected 07/13/2024 5:04 PM [facility] BRA[facility] Salmonella Not detected Not detected 07/13/2024 5:04 PM H[facility] BRAIDER [facility] Vibrio Not detected Not detected 07/13/2024 5:04 PM [facility] BRA[facility] Vibrio cholerae Not detected Not detected 07/13/2024 5:04 PM [facility] BRAIDER [facility] Yersinia enterocolitica Not detected Not detected 07/13/2024 5:04 PM [facility] BRAIDER [facility] Enteroaggregative E coli (EAEC) Not detected Not detected 07/13/2024 5:04 PM [facility] BRAID[facility] Enteropathogenic E coli (EPEC) Not detected Not detected, N/A 07/13/2024 5:04 PM [facility] BRAIDER [facility] Enterotoxigenic E coli (ETEC) LT/ST Not detected Not detected 07/13/2024 5:04 PM [facility] BRAIDER [facility] Shiga-Like Toxin-Producing E coli (STEC) stx1/stx2 Not detected Not detected 07/13/2024 5:04 PM [facility] BRAIDER [facility] E coli 0157 N/A Not detected, N/A 07/13/2024 5:04 PM H[facility] BRAIDER [facility] Shigella/Enteroinvas jana E coli Not detected Not detected 07/13/2024 5:04 PM H[facility] BRAIDER [facility] Cryptosporidium Not detected Not detected 07/13/2024 5:04 PM [facility] BRAIDER [facility] Cyclospora cayetanensis Not detected Not detected 07/13/2024 5:04 PM H[facility] BRAIDER [facility] Entamoeba histolytica Not detected Not detected 07/13/2024 5:04 PM [facility] BRAIDER [facility] Giardia lamblia Not detected Not detected 07/13/2024 5:04 PM [facility] BRAIDER [facility] Adenovirus F 40/41 Not detected Not detected 07/13/2024 5:04 PM H[facility] BRAIDER [facility] Astrovirus Not detected Not detected 07/13/2024 5:04 PM H[facility] BRAIDER [facility] Norovirus GI/GII Not detected Not detected 07/13/2024 5:04 PM H[facility] BRAIDER [facility] Rotavirus A Not detected Not detected 07/13/2024 5:04 PM H[facility] BRAIDER [facility] Sapovirus Not detected Not detected 07/13/2024 5:04 PM H[facility] BRAIDER [facility] Stool STOOL SPECIMEN / Unknown Collection / Unknown 07/13/2024 2:47 PM HOT BRAIDER 07/13/2024 2:56 PM HOT BRAIDER Narrative [facility] - 07/13/2024 5:04 PM HOT BRAIDER Test performed by [employer] RT-PCR. Edwin Sánchez MD LAB - MICROBIOLOGY O RDERABLES [facility] [address] [place] [address] [phone] * XR Chest 1Vw Portable (07/09/2024 9:51 AM HOT BRAIDER) Only the most recent of6 resultswithin the time period is included. Anatomical Region Laterality Modality Chest Digital Radiogra phy 07/10/2024 8:52 PM HOT BRAIDER Impressions 07/10/2024 8:53 PM HOT BRAIDER IMPRESSION: Lungs are clear. No focal consolidation, pleural effusion or pneumothorax. The cardiomediastinal silhouette is unchanged. Right rib fractures again seen. > Interpreting Provider: Terry Arthur MD on 07/10/2024 8:53 PM Narrative 07/10/2024 8:53 PM HOT BRAIDER PROCEDURE: ??XR CHEST 1VW PORTABLE DATE/TIME OF EXAM: ??07/09/2024 9:52 AM CLINICAL INFORMATION: None relevant/not provided if blank. Indication: I95.9: Hypotension, unspecified hypotension type Additional History: COMPARISON: 07/04/2024. Procedure Note Terry Arthur MD - 07/10/2024 PROCEDURE: XR CHEST 1VW PORTABLE DATE/TIME OF EXAM: 07/09/2024 9:52 AM CLINICAL INFORMATION: None relevant/not provided if blank. Indication: I95.9: Hypotension, unspecified hypotension type Additional History: COMPARISON: 07/04/2024. IMPRESSION: Lungs are clear. No focal consolidation, pleural effusion orpneumothorax. The cardiomediastinal silhouette is unchanged. Right rib fractures again seen. > Interpreting Provider: Terry Arthur MD on 07/10/2024 8:53 PM Radha Bautista MD DIAGNOSTIC IMAGING O RDERABLES * PHOSPHORUS BLOOD (07/09/2024 3:02 AM HOT BRAIDER) Only the most recent of12 resultswithin the time period is included. Phosphorus 3.2 2.9 - 5.1 mg/dL 07/09/2024 4:29 AM HOT BRAIDER [facility] Blood BLOOD SPECIMEN / Unknown Lab Venipuncture / Unknown 07/09/2024 3:02 AM HOT BRAIDER 07/09/2024 3:59 AM HOT BRAIDER Wilder Cruz MD LAB - CHEMISTRY OR DERABLES Performing Organization Address City/[facility]/ZIP Co de Phone Number [address] [phone], [facility] [phone] * MAGNESIUM BLOOD (07/09/2024 3:02 AM HOT BRAIDER) Only the most recent of12 resultswithin the time period is included. Magnesium 2.1 1.6 - 2.6 mg/dL 07/09/2024 4:29 AM HOT BRAIDER [facility] Blood BLOOD SPECIMEN / Unknown Lab Venipuncture / Unknown 07/09/2024 3:02 AM HOT BRAIDER 07/09/2024 3:59 AM HOT BRAIDER Wilder Cruz MD LAB - CHEMISTRY OR DERABLES Performing Organization Address [facility] Co de Phone Number [address] [phone], [facility] [phone] * XR Abdomen Kub Portable (07/05/2024 1:02 AM HOT BRAIDER) Only the most recent of2 resultswithin the time period is included. Anatomical Region Laterality Modality Abdomen Digital Radiogra phy 07/05/2024 5:33 AM HOT BRAIDER Narrative 07/05/2024 2:44 PM HOT BRAIDER PROCEDURE: ??XR ABDOMEN KUB PORTABLE DATE/TIME OF EXAM: ??07/05/2024 1:03 AM Indication: R41.82: Altered mental status, unspecified altered mental status type R53.1: Right sided weakness R53.1: Left-sided weakness Additional History: COMPARISON: Abdominal x-ray 06/27/2024 FINDINGS/IMPRESSION: AP portable upright view of the abdomen and upper pelvis was performed. An enteric tube is seen coursing below the diaphragm into the stomach with its tip positioned in the region of the gastric body. There are multiple loops of gas-filled colon and some small bowel seen within the visualized abdominal region. These are generally nondistended. No evidence of suggested free air seen underneath either hemidiaphragm. Report dictated by Gagan Sweeney MD (radiology aide). Dao Calderon MD have personally reviewed and interpreted this examination/study. > Interpreting Provider: Dao Mustafa MD on 07/05/2024 2:44 PM Procedure Note Dao Mustafa MD - 07/05/2024 PROCEDURE: XR ABDOMEN KUB PORTABLE DATE/TIME OF EXAM: 07/05/2024 1:03 AM Indication: R41.82: Altered mental status, unspecified altered mental status type R53.1: Right sided weakness R53.1: Left-sided weakness Additional History: COMPARISON: Abdominal x-ray 06/27/2024 FINDINGS/IMPRESSION: AP portable upright view of the abdomen and upper pelvis was performed. An enteric tube is seen coursing below the diaphragm into the stomachwith its tip positioned in the region of the gastric body. There are multiple loops of gas-filled colon and some small bowel seen within thevisualized abdominal region. These are generally nondistended. No evidence of suggested free air seen underneath either hemidiaphragm. Report dictated by Gagan Sweeney MD (radiology aide). Dao Calderon MD have personally reviewed and interpreted this examination/study. > Interpreting Provider: Dao Mustafa MD on 07/05/2024 2:44 PM Ibis Zamudio MD DIAGNOSTIC SP[facility]ER GING ORDERABLES * TSH REFLEX FREE T4 (06/30/2024 3:36 AM HOT BRAIDER) Pathologist [facility] TSH 0.809 0.350 - 4.940 uIU/mL 06/30/2024 4:50 AM HOT BRAIDER [facility] Blood BLOOD SPECIMEN / Unknown Lab Venipuncture / Unknown 06/30/2024 3:36 AM HOT BRAIDER 06/30/2024 4:02 AM HOT BRAIDER Khai Sotomayor [employer]IVE [employer] LAB - CHEMISTRY ORDERABLES [address] [address], [facility] [phone] * ECHO COMPLETE W CONTRAST W BUBBLE STUDY (06/29/2024 3:17 PM HOT BRAIDER) Pathologist [facility] Myocardial strain charge 2 unitless [facility] VTI 26.682 cm [facility] I PACS RVIDd 2.461 cm [facility] I PACS MV VTI 18.026 cm [facility] I PACS LV A4C EF 61.733 % [facility] I PACS TR pk harman 255.287 cm/s [facility] I PACS LVOT VTI 16.143 cm [facility] I PACS MV E' lateral harman 6.067 cm/s [facility] RV-rowland basal diam 3.588 cm [facility] MV A pk harman 72.843 cm/s [facility] F UJI PACS LVIDd 3.825 cm [facility] I PACS LV EDV A4C 96.869 ml [facility] FU JI PACS AV mn grad 5.296 mmHg [facility] FU JI PACS LV EDV A2C 80.137 ml [facility] CV FU JI PACS MV mn grad 1.17 mmHg [facility] FU JI PACS RVOT pk harman 66.705 cm/s [facility] CV F U PACS LVPWd 0.988 cm [facility] I PACS LV A2C EF 56.101 % [facility] I PACS PV VTI 12.238 cm [facility] I PACS IVC Diam Expiration 0.508 cm [facility] PACS RVOT VTI 10.615 cm [facility] I PACS AV pk harman 152.67 cm/s [facility] I PACS Ascending aorta 3.425 cm [facility] PACS TAPSE 2.022 cm [facility] I PACS LVIDs 3.352 cm [facility] I PACS LV biplane EF 58.727 % [facility] PACS RVOT diam Doppler 1.792 cm [facility] PV pk harman 90.873 cm/s [facility] I PACS LV ESV A4C 37.069 ml [facility] CV FU JI PACS IVSd 2D 0.956 cm [facility] I PACS MV E pk harman 66.575 cm/s [facility] CV F UJI PACS LA size 2.49 cm [facility] I PACS LV ESV A2C 35.179 ml [facility] CV FU JI PACS RA area 16.436 cm? ? ? [facility] CV RADHAI PACS LVOT pk harman 90.256 cm/s [facility] CV F UJYOTHI PACS LVOT diam 2.096 cm [facility] I PACS Anatomical Region Laterality Modality Ultrasound 06/29/2024 3:19 PM HOT BRAIDER Narrative 06/29/2024 3:42 PM HOT BRAIDER Summary ??* The left ventricle is normal in size, with normal systolic function and an estimated ejection fraction of 59 % by biplane method of disks. Left ventricular wall motion is normal. ??* The left ventricular mass is normal with concentric remodeling. ??* Right ventricle is normal in size with normal systolic function. ??* No hemodynamically significant valve disease. ??* The pulmonary artery systolic pressure is normal, 29 mmHg. ??* There is a trivial pericardial effusion. Patient Info Name: ? Ashleigh ?? Zach Age: ? 84 years : ? 1940 Gender: ? Female Accession #: ? [id number] Ht: ? 68 in Wt: ? 180 lb BSA: ? 2.00 m2 HR: ? 75 bpm BP: ? 111 / ? 53 mmHg Exam Date: ? 06/29/2024 3:19 PM Patient Status: ? I/P Study Site: ? [facility] Primary Location: ? [facility] EStudy Info Technical Quality: ? Technically Difficult Exam Type: ? ECHO COMPLETE W CONTRAST W BUBBLE STUDY Indications ?R53.1 - Right sided weakness Procedure(s) ??* A complete 2D, color Doppler, spectral Doppler and M-Mode transthoracic echocardiogram was performed with an Ultrasound Enhancing Agent (UEA) and a Bubble Study. Contrast/Agitated Saline Contrast / Saline: ? Agitated Saline Amount: ? 20.00 ml Administered By: ? Luis Huizar Reaction to Contrast: ? no Contrast / Saline: ? Definity Amount: ? 1.00 ml Administered By: ? Luis Huziar Reaction to Contrast: ? no Reason for Technically Difficult ??Study: ? poor patient cooperation, positional limitations Staff Referring Physician: ? Humberto Helton Ordering Provider: ? Humberto Helton Attending Physician: ? Humberto Helton Automatic Equipment Technician: ? Luis Huizar Left Ventricle ??The left ventricle is normal in size. Left ventricular systolic function is normal with an estimated ejection fraction of 59 % by biplane method of disks. The left ventricular mass is normal with concentric remodeling. Left ventricular segmental wall motion is normal. The left ventricular diastolic function is indeterminate. Right Ventricle ??The right ventricle is normal in size. Right ventricular systolic function is normal. Left Atrium ??The left atrium is normal in size. Right Atrium ??The right atrium is normal in size. Atrial Septum ??Intact interatrial septum visualized by 2D and color Doppler imaging. Aortic Valve ??The aortic valve is trileaflet. There is no aortic valve stenosis. There is no significant aortic valve regurgitation. Pulmonic Valve ??The pulmonic valve is grossly normal. There is no pulmonic valve stenosis. There is no significant pulmonic regurgitation. Mitral Valve ??The mitral valve is grossly normal. There is no mitral valve stenosis. There is no significant mitral valve regurgitation. Tricuspid Valve ??The tricuspid valve is grossly normal. There is trace tricuspid valve regurgitation. The pulmonary artery systolic pressure is normal, 29 mmHg. Inferior Vena Cava ??The inferior vena cava is normal in size (< 2.1 cm). Pericardium/Pleural ??There is a trivial pericardial effusion. Prominent epicardial fat pad. Aorta ??The aortic root at the sinus of Valsalva is normal in size. The ascending aorta is normal in size. Measurements Left Ventricular Outflow Tract Name ? Value ?Normal LVOT 2D LVOT Diameter ? 2.1 cm ? LVOT Area ?3.4 cm2 ? LVOT Doppler LVOT Peak Velocity ? 0.9 m/s ? LVOT Peak Gradient ?3 mmHg ? LVOT Mean Velocity ?65.01 cm/s ? LVOT Mean Gradient ?2 mmHg ? LVOT VTI ? 16.1 cm ? LVOT VTI/AV VTI Ratio ?0.6 ? LVOT Stroke Volume ? 56 ml ? LVOT Stroke Volume Index ?28 ml/m2 ? 35-58 LVOT CO ?4.2 l/min ? LVOT CI ? 2.1 l/min/m2 Pulmonic Valve Name ? Value ?Normal PV 2D RVOT Diameter (2D) ?1.8 cm ? 1.7-2.7 RVOT Doppler RVOT Peak Velocity ? 0.7 m/s ? RVOT Peak Gradient ?2 mmHg ? RVOT Mean Gradient ?1 mmHg ? PV Doppler PV Peak Velocity ? 0.9 m/s ? PV Peak Gradient ?3 mmHg ? PV Mean Gradient ?1 mmHg ? PV Area (Cont Eq VTI) ? 2.19 cm2 ? PV Area Index (Cont Eq VTI) ? 1.10 cm2/m2 ? PV Area (Cont Eq Harman) ?1.9 cm2 ? PV Area Index (Cont Eq Harman) ? 0.93 cm2/m2 Mitral Valve Name ? Value ?Normal MV Doppler MV Peak Gradient ?3 mmHg ? MV Mean Gradient ?1 mmHg ? MV DI (VTI) ? 1.12 ? MV Area (Cont Eq VTI) ? 3.09 cm2 ? MV Diastolic Function MV E Peak Velocity ? 0.7 m/sec ? MV A Peak Velocity ? 0.7 m/sec ? MV E/A ? 0.9 ? MV Decel Time (PW) ?249 ms ? MV Annular TDI MV Septal e' Velocity ? 5 cm/s ? >=8 MV E/e' (Septal) ?14 ? <=8 MV Lateral e' Velocity ?6 cm/s ?>=10 MV E/e' (Lateral) ? 11 ? <=8 MV e' Average ? 5 cm/s ? MV E/e' (Average) ? 12 Tricuspid Valve Name ? Value ?Normal TV Regurgitation Doppler TR Peak Velocity ? 2.6 m/s ? TR Peak Gradient ? 26 mmHg ? Estimated PAP/RSVP PA Systolic Pressure ? 29 mmHg ? <35 TV Annular TDI TV Lateral Swapna s' Velocity ? 16 cm/s ? 10-19 Pulmonary Vessels Name ? Value ?Normal Pulmonary Veins Pulm Vein Peak Systolic Velocity ? 36.1 cm/s ? Pulm Vein Peak Diastolic Velocity ? 47.8 cm/s ? Pulm Vein S/D Velocity Ratio ?1 ? Pulm Vein Ar Velocity ?29.9 cm/s Aorta Name ? Value ?Normal Ascending Aorta Asc Ao Diameter ? 3.4 cm ? 1.9-3.5 Asc Ao Diameter Index ?1.7 cm/m2 ? 1.0-2.2 Septae/Shunt/Generic Name ? Value ?Normal Qp/Qs Qp/Qs ?0.5 Venous Name ? Value ?Normal IVC/SVC IVC Diameter ?0.5 cm ? <=2.1 Aortic Valve Name ? Value ?Normal AV 2D/MM AV Cusp Sep (MM) ?1.7 cm ? AV Doppler AV Peak Velocity ?1.53 m/s ? AV Peak Gradient ?9 mmHg ? AV Mean Gradient ?5 mmHg ? AV VTI ? 27 cm ? AV Area (Cont Eq VTI) ? 2.09 cm2 ?>=2.00 AV Area (Cont Eq Harman) ? 2.04 cm2 ? AV DI (VTI) ? 0.61 ? AV DI (Harman) ? 0.59 ? AV Regurgitation 2D LVOT Area ? 3.45 cm2 Ventricles Name ? Value ?Normal LV Dimensions 2D/MM IVS Diastolic Thickness (2D) ?1.0 cm ? 0.6-0.9 LVID Diastole (2D) ?3.8 cm ? 3.8-5.2 LVPW Diastolic Thickness (2D) ?1.0 cm ? 0.6-0.9 IVS Systolic Thickness (2D) ? 1.1 cm ? LVID Systole (2D) ? 3.4 cm ? 2.2-3.5 LVPW Systolic Thickness (2D) ?1.0 cm ? LV Mass (2D Cubed) ? 111 g ?67-162 LV Mass Index (2D Cubed) ? 56 g/m2 ? 43-95 Relative Wall Thickness (2D) ?0.52 ?<=0.42 LV Fractional Shortening/Ejection Fraction 2D/MM LV Fractional Shortening (2D) ?12 % ? 27-45 LV EF (2D Teicholdayanna) ? 27 % ? 54-74 LV Diastolic Volume (4C MOD) ? 97 ml ? LV EF (4C MOD) ?62 % ? LV Diastolic Volume (2C MOD) ? 80 ml ? LV EF (2C MOD) ?56 % ? LV Diastolic Volume (BP MOD) ? 88 ml ?46-106 LV Diastolic Volume Index (BP MOD) ?44 ml/m2 ? 29-61 LV Systolic Volume (BP MOD) ?36 ml ? 14-42 LV Systolic Volume Index (BP MOD) ?18 ml/m2 ?8-24 LV EF (BP MOD) ?59 % ? 54-74 LV Diastolic Length (4C) ?7.0 cm ? LV Systolic Length (4C) ? 6.2 cm ? LV Stroke Volume (4C MOD) ?60 ml ? RV Dimensions 2D/MM RVID Diastole (2D) ?2.5 cm ? 2.5-3.5 RVID Systole (2D) ? 2.1 cm ? RV Basal Diastolic Dimension ? 3.6 cm ? 2.5-4.1 RV Diastolic Length (4C) ?6.2 cm ? 5.9-8.3 TAPSE ? 2.0 cm ? >=1.7 Atria Name ? Value ?Normal LA Dimensions LA Dimension (2D) ? 2.5 cm ? 2.7-3.8 LA Dimen Index (2D) ?1.2 cm/m2 ? RA Dimensions RA Area (4C) ?16 cm2 ?<=18 RA Area (4C) Index ?8 cm2/m2 Report Signatures Finalized by Donald Buckley on 06/29/2024 03:42 PM Procedure Note Donald Buckley MD - 06/29/2024 Summary * The left ventricle is normal in size, with normal systolic functionand an estimated ejection fraction of 59 % by biplane method of disks. Left ventricular wall motion is normal. * The left ventricular mass is normal with concentric remodeling. * Right ventricle is normal in size with normal systolic function. * No hemodynamically significant valve disease. * The pulmonary artery systolic pressure is normal, 29 mmHg. * There is a trivial pericardial effusion. Patient Info Name: Ashleigh Serrano Age: 84 years : 1940 Gender: Female Ht: 68 in Wt: 180 lb BSA: 2.00 m2 HR: 75 bpm BP: 111 / 53 mmHg Exam Date: 06/29/2024 3:19 PM Patient Status: I/P Study [facility]: Technically Difficult Exam Type: ECHO COMPLETE W CONTRAST W BUBBLE STUDY Indications R53.1 - Right sided weakness Procedure(s) * A complete 2D, color Doppler, spectral Doppler and M-Modetransthoracic echocardiogram was performed with an Ultrasound Enhancing Agent (UEA) jonathan Bubble Study. Contrast/Agitated Saline Contrast / Saline: Agitated Saline Amount: 20.00 ml Administered By: Luis Huizar Reaction to Contrast: no Contrast / Saline: Definity Amount: 1.00 ml Administered By: Luis Huizar Reaction to Contrast: no Reason for Technically Difficult Study: poor patient cooperation, positional limitations Staff Referring Physician: Humberto Helton Ordering Provider: Humberto Helton Attending Physician: Humberto Helton Automatic Equipment Technician: Luis Huizar Left Ventricle The left ventricle is normal in size. Left ventricular systolic functionis normal with an estimated ejection fraction of 59 % by biplane method ofdisks. The left ventricular mass is normal with concentric remodeling. Left ventricular segmental wall motion is normal. The left ventriculardiastolic function is indeterminate. Right Ventricle The right ventricle is normal in size. Right ventricular systolicfunction is normal. Left Atrium The left atrium is normal in size. Right Atrium The right atrium is normal in size. Atrial Septum Intact interatrial septum visualized by 2D and color Doppler imaging. Aortic Valve The aortic valve is trileaflet. There is no aortic valve stenosis. Thereis no significant aortic valve regurgitation. Pulmonic Valve The pulmonic valve is grossly normal. There is no pulmonic valvestenosis. There is no significant pulmonic regurgitation. Mitral Valve The mitral valve is grossly normal. There is no mitral valve stenosis.There is no significant mitral valve regurgitation. Tricuspid Valve The tricuspid valve is grossly normal. There is trace tricuspid valve regurgitation. The pulmonary artery systolic pressure is normal, 29mmHg. Inferior Vena Cava The inferior vena cava is normal in size (< 2.1 cm). Pericardium/Pleural There is a trivial pericardial effusion. Prominent epicardial fat pad. Aorta The aortic root at the sinus of Valsalva is normal in size. Theascending aorta is normal in size. Measurements Left Ventricular Outflow Tract Name Value Normal LVOT 2D LVOT Diameter 2.1 cm LVOT Area 3.4 cm2 LVOT Doppler LVOT Peak Velocity 0.9 m/s LVOT Peak Gradient 3 mmHg LVOT Mean Velocity 65.01 cm/s LVOT Mean Gradient 2 mmHg LVOT VTI 16.1 cm LVOT VTI/AV VTI Ratio 0.6 LVOT Stroke Volume 56 ml LVOT Stroke Volume Index 28 ml/m2 35-58 LVOT CO 4.2 l/min LVOT CI 2.1 l/min/m2 Pulmonic Valve Name Value Normal PV 2D RVOT Diameter (2D) 1.8 cm 1.7-2.7 RVOT Doppler RVOT Peak Velocity 0.7 m/s RVOT Peak Gradient 2 mmHg RVOT Mean Gradient 1 mmHg PV Doppler PV Peak Velocity 0.9 m/s PV Peak Gradient 3 mmHg PV Mean Gradient 1 mmHg PV Area (Cont Eq VTI) 2.19 cm2 PV Area Index (Cont Eq VTI) 1.10 cm2/m2 PV Area (Cont Eq Harman) 1.9 cm2 PV Area Index (Cont Eq Harman) 0.93 cm2/m2 Mitral Valve Name Value Normal MV Doppler MV Peak Gradient 3 mmHg MV Mean Gradient 1 mmHg MV DI (VTI) 1.12 MV Area (Cont Eq VTI) 3.09 cm2 MV Diastolic Function MV E Peak Velocity 0.7 m/sec MV A Peak Velocity 0.7 m/sec MV E/A 0.9 MV Decel Time (PW) 249 ms MV Annular TDI MV Septal e' Velocity 5 cm/s >=8 MV E/e' (Septal) 14 <=8 MV Lateral e' Velocity 6 cm/s >=10 MV E/e' (Lateral) 11 <=8 MV e' Average 5 cm/s MV E/e' (Average) 12 Tricuspid Valve Name Value Normal TV Regurgitation Doppler TR Peak Velocity 2.6 m/s TR Peak Gradient 26 mmHg Estimated PAP/RSVP PA Systolic Pressure 29 mmHg <35 TV Annular TDI TV Lateral Swapna s' Velocity 16 cm/s 10-19 Pulmonary Vessels Name Value Normal Pulmonary Veins Pulm Vein Peak Systolic Velocity 36.1 cm/s Pulm Vein Peak Diastolic Velocity 47.8 cm/s Pulm Vein S/D Velocity Ratio 1 Pulm Vein Ar Velocity 29.9 cm/s Aorta Name Value Normal Ascending Aorta Asc Ao Diameter 3.4 cm 1.9-3.5 Asc Ao Diameter Index 1.7 cm/m2 1.0-2.2 Septae/Shunt/Generic Name Value Normal Qp/Qs Qp/Qs 0.5 Venous Name Value Normal IVC/SVC IVC Diameter 0.5 cm <=2.1 Aortic Valve Name Value Normal AV 2D/MM AV Cusp Sep (MM) 1.7 cm AV Doppler AV Peak Velocity 1.53 m/s AV Peak Gradient 9 mmHg AV Mean Gradient 5 mmHg AV VTI 27 cm AV Area (Cont Eq VTI) 2.09 cm2 >=2.00 AV Area (Cont Eq Harman) 2.04 cm2 AV DI (VTI) 0.61 AV DI (Harman) 0.59 AV Regurgitation 2D LVOT Area 3.45 cm2 Ventricles Name Value Normal LV Dimensions 2D/MM IVS Diastolic Thickness (2D) 1.0 cm 0.6-0.9 LVID Diastole (2D) 3.8 cm 3.8-5.2 LVPW Diastolic Thickness (2D) 1.0 cm 0.6-0.9 IVS Systolic Thickness (2D) 1.1 cm LVID Systole (2D) 3.4 cm 2.2-3.5 LVPW Systolic Thickness (2D) 1.0 cm LV Mass (2D Cubed) 111 g 67-162 LV Mass Index (2D Cubed) 56 g/m2 43-95 Relative Wall Thickness (2D) 0.52 <=0.42 LV Fractional Shortening/Ejection Fraction 2D/MM LV Fractional Shortening (2D) 12 % 27-45 LV EF (2D Teicholz) 27 % 54-74 LV Diastolic Volume (4C MOD) 97 ml LV EF (4C MOD) 62 % LV Diastolic Volume (2C MOD) 80 ml LV EF (2C MOD) 56 % LV Diastolic Volume (BP MOD) 88 ml 46-106 LV Diastolic Volume Index (BP MOD) 44 ml/m2 29-61 LV Systolic Volume (BP MOD) 36 ml 14-42 LV Systolic Volume Index (BP MOD) 18 ml/m2 8-24 LV EF (BP MOD) 59 % 54-74 LV Diastolic Length (4C) 7.0 cm LV Systolic Length (4C) 6.2 cm LV Stroke Volume (4C MOD) 60 ml RV Dimensions 2D/MM RVID Diastole (2D) 2.5 cm 2.5-3.5 RVID Systole (2D) 2.1 cm RV Basal Diastolic Dimension 3.6 cm 2.5-4.1 RV Diastolic Length (4C) 6.2 cm 5.9-8.3 TAPSE 2.0 cm >=1.7 Atria Name Value Normal LA Dimensions LA Dimension (2D) 2.5 cm 2.7-3.8 LA Dimen Index (2D) 1.2 cm/m2 RA Dimensions RA Area (4C) 16 cm2 <=18 RA Area (4C) Index 8 cm2/m2 Report Signatures Finalized by Donald Buckley on 06/29/2024 03:42 PM Humberto Helton MD ECHO [facility] * CARDIAC EKG ORDER (06/28/2024 8:04 AM HOT BRAIDER) Narrative 06/28/2024 8:04 AM HOT BRAIDER Ordered by an unspecified provider. Scanned Document CARDIAC SERVICES ORD ERABLES * (ABNORMAL) HEMOGLOBIN A1C (06/27/2024 1:23 AM HOT BRAIDER) Hemoglobin A1c 5.7(H) <=5.6 % 06/28/2024 8:46 AM [facility] Estimated Average Glucose 117 mg/dL 06/28/2024 8:46 AM [facility] Comment: HbA1c Interpretation: Normal : < 5.7% Pre-diabetes: 5.7-6.4% Diabetes: Equal to or greater than 6.5% Test results diagnostic of diabetes should be repeated for confirmation. Treatment target values recommended by ADA and other clinical organizations should be used to evaluate metabolic control in patients. Reference: [place] [employer], Standards of Care in Diabetes -2020 In patients 70 years and older consider HbA1c target range of 7.0-7.5% (Reference: Pranay Garber, et al. JAMDA. 2012) The Sebia assay for the measurement of HbA1c is a National Glycohemoglobin Standardization Program (NGSP) certified method. Blood BLOOD SPECIMEN / Unknown Line Draw / Unknown 06/27/2024 1:23 AM HOT BRAIDER 06/27/2024 3:39 PM HOT BRAIDER Humberto Helton MD LAB - CHEMISTRY [facility]ISA HARD[facility] [address] [place] [phone], [facility] [phone] * LIPID PROFILE (06/27/2024 1:23 AM HOT BRAIDER) Cholesterol Total 156 <200 mg/dL 06/27/2024 2:01 AM [facility] HDL 51 >40 mg/dL 06/27/2024 2:01 AM [facility] Comment: ATP III Classification of HDL Cholesterol: ? <40 mg/dL: ??Considered a major risk factor. ? >60 mg/dL: ??Considered a negative risk factor. ? LDL Calculated 85 <100 mg/dL 06/27/2024 2:01 AM [facility] Comment: ATP III Classification of LDL Cholesterol: ?<100 mg/dL: ??Optimal ? 100 - 129 mg/dL: ??Near Optimal/Above Optimal ? 130 - 159 mg/dL: ??Borderline High ? 160 - 189 mg/dL: ??High ?>190 mg/dL: ??Very High ? Triglycerides 99 <150 mg/dL 06/27/2024 2:01 AM [facility] Comment: ATP III Classification of Triglycerides: ?<150 mg/dL: ??Normal ? 150 - 199 mg/dL: ??Borderline High ? 200 - 400 mg/dL: ??High ?>500 mg/dL: ??Very High Blood BLOOD SPECIMEN / Unknown Venipuncture / Unknown 06/27/2024 1:23 AM HOT BRAIDER 06/27/2024 1:30 AM [facility] Humberto Helton MD LAB - CHEMISTRY LISA [facility]ARDING Performing Organization Address City/[facility] de Phone Number [facility] [address] [place] [phone], [facility] [phone] * TROPONIN-I HIGH SENSITIVE REFLEX 1HOUR (06/26/2024 11:05 PM [facility]) Only the most recent of3 resultswithin the time period is included. Troponin I High Sensitive 8 <=14 ng/L 06/26/2024 11:42 PM [facility] Delta Troponin I HS 06/26/2024 11:42 PM [facility] Comment:Delta value intentio argenis not calculated. Baseline to 1 hour specimen collection interval exceeded. Blood BLOOD SPECIMEN / Unknown Venipuncture / Unknown 06/26/2024 11:05 PM HOT BRAIDER 06/26/2024 11:22 PM HOT BRAIDER Humberto Helton MD LAB - CHEMISTRY [facility] Organization Address City/State/ZIP Co de Phone Number [facility] [place] [address] [place] [address], [facility] [phone] * MRI Brain Wo Contrast (06/26/2024 8:50 PM HOT BRAIDER) Anatomical Region Laterality Modality Head Magnetic Resonan ce 06/27/2024 7:58 AM HOT BRAIDER Impressions 06/27/2024 10:12 AM HOT BRAIDER IMPRESSION: Punctate focus of restricted diffusion within left parietal lobe with possible associated T2/FLAIR hyperintensity, compatible with a punctate acute infarct. Otherwise no acute intracranial abnormality. Moderate burden of chronic ischemic small vessel disease noted. These findings were discussed in detail with the patient's care provider, Dr Gray by Dr. Gatica via telephone at 06/26/2024 9:33 PM with readback comprehension and verification. This study was dictated by radiology aide Panda Lester MD and reviewed and edited by the attending. I, Jeanie Duong MD have personally reviewed and interpreted this examination/study. > Interpreting Provider: Jeanie Duong MD on 06/27/2024 10:12 AM Narrative 06/27/2024 10:12 AM HOT BRAIDER PROCEDURE: ??MRI BRAIN WO CONTRAST, DATE/TIME OF EXAM: ??06/26/2024 8:52 PM, LOCATION ??[facility] INDICATION: R41.82: Altered mental status, unspecified altered mental status type S22.22XA: Closed fracture of body of sternum, initial encounter S22.41XA: Closed fracture of multiple ribs of right side, initial encounter J94.2: Hemothorax on right ADDITIONAL CLINICAL INFORMATION: Ordering Provider Reason For Exam: ??stroke r/o. Technologist Note: Additional: TECHNIQUE: MRI of the brain was performed without contrast according to standard protocol. COMPARISON: CT head, angiogram 06/26/2024 FINDINGS: A punctate focus of restricted diffusion within the left parietal lobe (series 3 and 4, image 16) with ??associated faint T2/FLAIR hyperintensity likely represents a small focus of acute infarct. No evidence of acute hemorrhage is identified. Small focus of susceptibility signal dropout in right lateral thalamus compatible with chronic microhemorrhage. There is mild cerebral volume loss with associated ex vacuo ventricular dilatation. No mass effect or midline shift is seen. Moderate burden of periventricular, subcortical, and pontine white matter FLAIR hyperintensities likely represent sequelae of chronic small vessel ischemic disease. The corpus callosum and sella appear normal. The posterior fossa, brainstem, and craniocervical junction appear normal. Other than mild paranasal sinus disease and evidence of bilateral cataract surgery, the visualized portions of the orbits, paranasal sinuses, and mastoids appear normal. Normal flow voids are demonstrated in the carotid arteries and basilar artery. The calvarium is unremarkable. Degenerative changes of the upper cervical spine. Procedure Note Jeanie Duong MD - 06/27/2024 PROCEDURE: MRI BRAIN WO CONTRAST, DATE/TIME OF EXAM: 06/26/2024 8:52PM, LOCATION [facility] INDICATION: R41.82: Altered mental status, unspecified altered mental status type S22.22XA: Closed fracture of body of sternum, initial encounter S22.41XA: Closed fracture of multiple ribs of right side, initialencounter J94.2: Hemothorax on right ADDITIONAL CLINICAL INFORMATION: Ordering Provider Reason For Exam: stroke r/o. Technologist Note: Additional: TECHNIQUE: MRI of the brain was performed without contrast according to standard protocol. COMPARISON: CT head, angiogram 06/26/2024 FINDINGS: A punctate focus of restricted diffusion within the left parietal lobe (series 3 and 4, image 16) with associated faint T2/FLAIRhyperintensity likely represents a small focus of acute infarct. No evidence of acute hemorrhage is identified. Small focus of susceptibility signal dropoutin right lateral thalamus compatible with chronic microhemorrhage. There is mild cerebral volume loss with associated ex vacuo ventriculardilatation. No mass effect or midline shift is seen. Moderate burden of periventricular, subcortical, and pontine white matter FLAIR hyperintensities likely represent sequelae of chronic small vesselischemic disease. The corpus callosum and sella appear normal. The posteriorfossa, brainstem, and craniocervical junction appear normal. Other than mild paranasal sinus disease and evidence of bilateralcataract surgery, the visualized portions of the orbits, paranasal sinuses, and mastoids appear normal. Normal flow voids are demonstrated in thecarotid arteries and basilar artery. The calvarium is unremarkable. Degenerative changes of the upper cervical spine. IMPRESSION: Punctate focus of restricted diffusion within left parietal lobe with possible associated T2/FLAIR hyperintensity, compatible with a punctate acute infarct. Otherwise no acute intracranial abnormality. Moderateburden of chronic ischemic small vessel disease noted. These findings were discussed in detail with the patient's careprovider, Dr Gray by Dr. Gatica via telephone at 06/26/2024 9:33 PM withreadback comprehension and verification. This study was dictated by radiology aide Panda Lester MD and reviewed and edited by the attending. I, Jeanie Duong MD have personally reviewed and interpreted this examination/study. > Interpreting Provider: Jeanie Duong MD on 06/27/2024 10:12 AM Calderon Sim MD MR ORDERABLES * TROPONIN-I HIGH SENSITIVE BASELINE + 1HR (06/26/2024 5:54 PM HOT BRAIDER) Only the most recent of3 resultswithin the time period is included. Pathologist [facility] Troponin I High Sensitive 8 <=14 ng/L 06/26/2024 7:08 PM HOT BRAIDER [facility] Blood BLOOD SPECIMEN / Unknown Venipuncture / Unknown 06/26/2024 5:54 PM HOT BRAIDER 06/26/2024 6:35 PM HOT BRAIDER Humberto Helton MD LAB - CHEMISTRY [facility] HARD[facility] [address] [place] [phone], [facility] [phone] * (ABNORMAL) URINE MICROSCOPIC ONLY REFLEX TO CULTURE (06/26/2024 5:40 PM HOT BRAIDER) Pathologist [facility] Reflex Status Culture to follow 06/26/2024 6:10 PM HOT BRAIDER [facility] RBC UA 11-20(A) None Seen, 0-2, 3-5 /HPF 06/26/2024 6:10 PM [facility] WBC UA 51-100(A) None Seen, 0-5 /HPF 06/26/2024 6:10 PM [facility] Bacteria UA 3+(A) None /HPF 06/26/2024 6:10 PM [facility] Squamous Epithelial Cells UA 0-2 None Seen, 0-2, 3-5 /HPF 06/26/2024 6:10 PM [facility] Urine URINE SPECIMEN OBTAINED BY CLEAN CATCH PROCEDURE / Unknown Collection / Unknown 06/26/2024 5:40 PM HOT BRAIDER 06/26/2024 5:43 PM HOT BRAIDER [facility] - 06/26/2024 6:10 PM HOT BRAIDER Calderon Sim MD LAB - URINALYSIS ORD ERABLES [facility] [address] [place] [phone], [facility] [phone] * (ABNORMAL) URINALYSIS REFLEX MICROSCOPIC REFLEX CULTURE (06/26/2024 5:40 PM HOT BRAIDER) Color UA Yellow Straw, Yellow 06/26/2024 6:09 PM [facility] Clarity UA Slt Cloudy(A) Clear 06/26/2024 6:09 PM [facility] Specific [place] UA 1.039(H) 1.005 - 1.030 06/26/2024 6:09 PM [facility] pH UA 6.0 5.0 - 8.0 pH 06/26/2024 6:09 PM [facility] Protein UA 1+(A) Negative 06/26/2024 6:09 PM [facility] Glucose UA Negative Negative 06/26/2024 6:09 PM [facility] Ketone UA Trace(A) Negative 06/26/2024 6:09 PM [facility] Bilirubin UA Negative Negative 06/26/2024 6:09 PM [facility] Blood UA 2+(A) Negative 06/26/2024 6:09 PM [facility] Nitrite UA Positive(A) Negative 06/26/2024 6:09 PM HOT BRAIDER [facility] Leukocyte Esterase 3+(A) Negative 06/26/2024 6:09 PM HOT BRAIDER [facility] Urobilinogen UA Negative Negative mg/dL 06/26/2024 6:09 PM HOT BRAIDER [facility] Comment UA Microscopic to follow. 06/26/2024 6:09 PM HOT BRAIDER [facility] Urine URINE SPECIMEN OBTAINED BY CLEAN CATCH PROCEDURE / Unknown Collection / Unknown 06/26/2024 5:40 PM HOT BRAIDER 06/26/2024 5:43 PM HOT BRAIDER Narrative [facility] - 06/26/2024 6:09 PM HOT BRAIDER Calderon Sim MD LAB - URINALYSIS ORD ERABLES Performing Organization Address City/[facility]/ZIP Co de Phone Number [facility] [address] [place] [address], [facility] [phone] * CULTURE URINE (06/26/2024 5:40 PM HOT BRAIDER) Culture Urine No growth (<100 CFU/mL) EPI 06/27/2024 11:[address] [facility] Urine URINE SPECIMEN OBTAINED BY CLEAN CATCH PROCEDURE / Unknown Collection / Unknown 06/26/2024 5:40 PM HOT BRAIDER 06/26/2024 6:10 PM HOT BRAIDER Calderon Sim MD LAB - MICROBIOLOGY O RDSABRINABLES [facility] [address] [place] [address], [facility] [phone] * CULTURE BLOOD (06/26/2024 4:56 PM HOT BRAIDER) Only the most recent of2 resultswithin the time period is included. Culture No growth day 5 EPI 07/01/2024 9:[address] [facility] Blood PERIPHERAL BLOOD / Unknown Lab Venipuncture / Unknown 06/26/2024 4:56 PM HOT BRAIDER 06/26/2024 4:58 PM HOT BRAIDER Jamison R Bisesi DO LAB - MICROBIOLOGY O RDERABLES [facility] MICRO[facility] [address] [place] [address], [facility] [phone] * LACTIC ACID BLOOD REFLEX TO REPEAT (06/26/2024 4:36 PM HOT BRAIDER) Pathologist [facility] Lactic Acid-Stat 1.3 <=2.0 mmol/L 06/26/2024 5:14 PM [facility] Blood BLOOD SPECIMEN / Unknown Venipuncture / Unknown 06/26/2024 4:36 PM HOT BRAIDER 06/26/2024 4:45 PM HOT BRAIDER Jamison Nevarez DO LAB - CHEMISTRY LISA HARD[facility] [address] [place] [address], [place] [phone] * URINE DRUG SCREEN IMMUNOASSAY (06/26/2024 2:39 PM HOT BRAIDER) [facility] Amphetamines Screen Urine Negative Negative: < 1000 ng/mL 06/26/2024 3:06 PM [facility] Barbiturates Screen Urine Negative Negative: < 200 ng/mL 06/26/2024 3:06 PM [facility] Benzodiazepine Screen Urine Negative Negative: < 200 ng/mL 06/26/2024 3:06 PM [facility] Opiates Urine Negative Negative: < 300 ng/mL 06/26/2024 3:06 PM [facility] Cocaine Metabolites Urine Negative Negative: < 300 ng/mL 06/26/2024 3:06 PM [facility] Phencyclidine Screen Urine Negative Negative: < 25 ng/ml 06/26/2024 3:06 PM [facility] Cannabinoids Screen Urine Negative Negative: <50 ng/mL 06/26/2024 3:06 PM [facility] Methadone Screen Urine Negative Negative: < 300 ng/mL 06/26/2024 3:06 PM [facility] Fentanyl Screen Urine Negative Negative: <1.5 ng/mL 06/26/2024 3:06 PM [facility] Urine URINE / Unknown Collection / Unknown 06/26/2024 2:39 PM HOT BRAIDER 06/26/2024 2:43 PM HOT BRAIDER Narrative [facility] - 06/26/2024 3:06 PM HOT BRAIDER The Urine Toxicology Screening Panel does not screen for Propoxyphene, Meprobamate, Carisoprodol, Trazodone, zmub-gkr-xxjjzzo medications and/or volatiles (Acetone, Isopropanol, Methanol or Ethylene Glycol). Ethanol, Salicylate, Acetaminophen, Tricyclic Antidepressants and several therapeutic drugs may be individually assayed in serum or plasma specimen. Toxicology testing by the [facility] is an aid to medical diagnosis and treatment of patients. No documented chain of custody was maintained. Results are intended to be used for clinical purposes only. ? Calderon Sim MD LAB - URINE CHEMISTR Y ORDERABLES Performing Organization Address [facility] de Phone Number [address] [address], [facility] [phone] * BLOOD TYPE VERIFICATION (06/26/2024 1:39 PM HOT BRAIDER) ABO Rh AB POS 06/26/2024 2:23 PM HOT BRAIDER [facility] Blood Bank BLOOD SPECIMEN / Unknown Venipuncture / Unknown 06/26/2024 1:39 PM HOT BRAIDER 06/26/2024 1:51 PM HOT BRAIDER Calderon Sim MD LAB - BLOOD BANK ORD ERABLES Performing Organization Address [facility]/State/ZIP Co de Phone Number [facility] [address] [place] [address], [facility] [phone] * CT Angio Brain Neck Stroke (06/26/2024 12:50 PM HOT BRAIDER) Anatomical Region Laterality Modality Head Computed Tomogra phy 06/26/2024 12:5 7 PM HOT BRAIDER Impressions 06/26/2024 7:21 PM HOT BRAIDER IMPRESSION: 1.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 3.Multiple heterogenous and hypoattenuating nodules in the left thyroid lobe measuring up to 2.3 cm. Consider routine thyroid ultrasound for further characterization if clinically warranted. Results of this exam were communicated with closed loop confirmation to Dr. Gray on ??06/26/2024 1:20 PM. ?? The report is dictated by Price Bates MD (radiology aide) I, Jeanie Duong MD have personally reviewed and interpreted this examination/study. > Interpreting Provider: Jeanie Duong MD on 06/26/2024 7:21 PM Narrative 06/26/2024 7:21 PM HOT BRAIDER PROCEDURE: ??CT ANGIO BRAIN NECK STROKE, DATE/TIME OF EXAM: ??06/26/2024 12:53 PM, LOCATION ??[facility] INDICATION: R41.82: Altered mental status, unspecified altered mental status type ADDITIONAL CLINICAL INFORMATION: Ordering Provider Reason For Exam: Technologist Note: Additional: EXAMINATION: 1. Computed tomographic (CT) angiography of the head with contrast 2. CT angiography of the neck with contrast TECHNIQUE: CT angiography of the head and neck was obtained after the uneventful administration of 100 mL Isovue-370 intravenous contrast. Three dimensional postprocessing was performed by the technologist and sent to the workstation for review. Stenosis measurements are based on NASCET criteria. ??CT dose reduction technique was used, including Automated Exposure Control. COMPARISON: No prior study is available for comparison at the time of this dictation. FINDINGS: Non-angiographic findings: Please refer to concurrent noncontrast CT for further characterization of the head. Multiple heterogenous and hypoattenuating nodules in the left thyroid lobe measuring up to 2.3 cm. Post surgical changes of right thyroidectomy. Moderate multilevel degenerative disc and joint disease is noted in the cervical spine. Angiographic findings: Neck: There is atherosclerotic disease of the aortic arch. The configuration of the brachiocephalic vessels is typical. The innominate artery and both subclavian arteries appear patent other than mild atherosclerosis at the origin/proximal portions.. There is atherosclerotic disease in the right carotid bifurcation and origin of the right internal carotid artery without focal stenosis. Other than atherosclerotic calcifications in the distal right internal carotid artery, the right common and internal carotid arteries otherwise appear patent. There is atherosclerotic disease in the left carotid bifurcation and origin of the left internal carotid artery without focal stenosis. Other than atherosclerotic calcifications in the distal left internal carotid artery, the left common and internal carotid arteries otherwise appear patent. Other than mild focal stenosis at the origin of right vertebral artery due to atherosclerotic disease, the cervical vertebral arteries are patent. Dominant left vertebral artery. Head: There is severe focal stenosis/occlusion at the junction of P1 and P2 segment of the left posterior cerebral artery with patent distal HOSTEL MANAGER (series 5 images [id number]). There is atherosclerotic disease involving the distal internal carotid arteries without significant focal stenosis. The anterior cerebral arteries are patent. The middle cerebral arteries are patent. origin of the right posterior cerebral artery, but otherwise is patent. V4 segment of the left vertebral artery is patent with areas of mild atherosclerosis there is a decrease in the caliber and opacification of the V4 segment of the right vertebral artery could be sequela of chronic stenosis from atherosclerosis. The basilar artery is patent. No aneurysms. Procedure Note Jeanie Duong MD - 06/26/2024 PROCEDURE: CT ANGIO BRAIN NECK STROKE, DATE/TIME OF EXAM: 2:53 PM, LOCATION [facility] INDICATION: R41.82: Altered mental status, unspecified altered mental status type ADDITIONAL CLINICAL INFORMATION: Ordering Provider Reason For Exam: Technologist Note: Additional: EXAMINATION: 1. Computed tomographic (CT) angiography of the head with contrast 2. CT angiography of the neck with contrast TECHNIQUE: CT angiography of the head and neck was obtained after the uneventful administration of 100 mL Isovue-370 intravenous contrast.Three dimensional postprocessing was performed by the technologist and sent to the workstation for review. Stenosis measurements are based on NASCET criteria. CT dose reduction technique was used, including Automated Exposure Control. COMPARISON: No prior study is available for comparison at the time ofthis dictation. FINDINGS: Non-angiographic findings: Please refer to concurrent noncontrast CT for further characterizationof the head. Multiple heterogenous and hypoattenuating nodules in the left thyroidlobe measuring up to 2.3 cm. Post surgical changes of right thyroidectomy. Moderate multilevel degenerative disc and joint disease is noted in the cervical spine. Angiographic findings: Neck: There is atherosclerotic disease of the aortic arch. The configurationof the brachiocephalic vessels is typical. The innominate artery and both subclavian arteries appear patent other than mild atherosclerosis at the origin/proximal portions.. There is atherosclerotic disease in the right carotid bifurcation and origin of the right internal carotid arterywithout focal stenosis. Other than atherosclerotic calcifications in the distal right internal carotid artery, the right common and internal carotid arteries otherwise appear patent. There is atherosclerotic disease inthe left carotid bifurcation and origin of the left internal carotid artery without focal stenosis. Other than atherosclerotic calcifications in the distal left internal carotid artery, the left common and internalcarotid arteries otherwise appear patent. Other than mild focal stenosis at the origin of right vertebral artery due to atherosclerotic disease, the cervical vertebral arteries are patent. Dominant left vertebral artery. Head: There is severe focal stenosis/occlusion at the junction of P1 and P2 segment of the left posterior cerebral artery with patent distal HOSTEL MANAGER (series 5 images [phone]). There is atherosclerotic disease involving the distal internal carotid arteries without significant focal stenosis. The anterior cerebralarteries are patent. The middle cerebral arteries are patent. origin of the right posterior cerebral artery, but otherwise is patent. V4 segment ofthe left vertebral artery is patent with areas of mild atherosclerosis thereis a decrease in the caliber and opacification of the V4 segment of theright vertebral artery could be sequela of chronic stenosis fromatherosclerosis. The basilar artery is patent. No aneurysms. IMPRESSION: 1.Severe focal stenosis/occlusion at the junction of P1 and P2 segmentof the of the left posterior cerebral artery with evidence of distal reconstitution 2.Otherwise no evidence of large vessel occlusion or significantstenoses identified in the head and neck. 3.Multiple heterogenous and hypoattenuating nodules in the left thyroid lobe measuring up to 2.3 cm. Consider routine thyroid ultrasound for further characterization if clinically warranted. Results of this exam were communicated with closed loop confirmation toDr. Gray on 06/26/2024 1:20 PM. The report is dictated by Price Bates MD (radiology aide) Jeanie Calderon MD have personally reviewed and interpreted this examination/study. > Interpreting Provider: Jeanie Duong MD on 06/26/2024 7:21 PM Humberto Helton MD CT ORDERABLES * CT CHEST ABDOMEN PELVIS W CONT - Abdomen-pelvis trauma, blunt or penetrating (06/26/2024 12:50 PM HOT BRAIDER) Anatomical Region Laterality Modality Chest, Abdomen, Pelvis Computed Tomography 06/26/2024 12:2 4 PM HOT BRAIDER Impressions 06/26/2024 1:12 PM HOT BRAIDER Impression: 1.Mildly displaced mid sternal body fracture. Mildly displaced rib fractures of the right anterior/anterolateral sixth through ninth ribs. 2.Small volume right hemothorax. 3.Fluid in the endometrial canal. Recommend nonemergent gynecologic consultation. 4.There is a 3.3 right adrenal gland mass of indeterminate etiology. Recommend CT/MR adrenal protocol for further characterization if clinically warranted. 5. Multiple thyroid nodules noted on the left with largest measuring 2.2 cm. Recommend nonemergent outpatient thyroid ultrasound if not recently performed for further characterization. > Dictated by Ruben Rodriguez DO (radiology aide). Terry Calderon MD have personally reviewed and interpreted this examination/study. > Interpreting Provider: Terry Arthur MD on 06/26/2024 1:12 PM Narrative 06/26/2024 1:12 PM HOT BRAIDER PROCEDURE: ??CT CHEST ABDOMEN PELVIS W CONT, DATE/TIME OF EXAM: ??06/26/2024 12:53 PM, LOCATION ??[facility] INDICATION: Trauma COMPARISON: None. TECHNIQUE: CT of the chest, abdomen, and pelvis was performed after the uneventful administration of 100 mL of Isovue 370 intravenous contrast according to standard protocol. Findings: Chest: Lower Neck and Axillae: Multiple left-sided thyroid nodules are seen with the largest measuring 2.2 cm Lungs: No pulmonary parenchymal or airway process is present. There is a small volume right hemothorax. Mild subsegmental atelectasis within the right middle lobe as well as dependent atelectasis bilaterally. No suspicious pulmonary nodules are identified. No pneumothorax is present. Heart and Pericardium: The cardiac chambers are normal in size. No pericardial fluid or thickening is present. The coronary arteries are atherosclerotic. Mediastinum and Nga: No mediastinal hemorrhage is present. No enlarged lymph nodes are present. Multiple calcified lymph nodes are noted within the perihilar regions. Thoracic Vasculature: The aorta and its branch vessels are atherosclerotic. Abdomen/pelvis: Liver: Normal. Gallbladder and Bile Ducts: Normal. Spleen: Multiple calcified granulomas are noted in the spleen, likely sequelae of prior granulomatous disease. Pancreas: Normal. Adrenals: There is a large 3.3 cm right adrenal gland mass of indeterminate etiology. The left adrenal gland is normal. Kidneys: Multiple simple appearing renal cysts are seen bilaterally. Gastrointestinal: The stomach and visualized loops of large and small bowel are unremarkable. Normal appendix. Mesentery/Peritoneum/Retroperitoneum: No free intraperitoneal air. No free fluid in the abdomen or pelvis. Bladder: Normal. Reproductive Organs: There is fluid within the patient's endometrial canal which attenuates higher than simple fluid compatible for endometrial blood products. Given the patient's postmenopausal age, this finding is concerning. Multiple calcified fibroids are seen. Abdominal Vasculature: Atherosclerotic calcification of the aorta and its branch vessels. Bones: Bone windows demonstrate no suspicious lytic or blastic lesions. Minimally displaced rib fractures on the right of the anterior/anterolateral sixth through ninth ribs. Minimally displaced mid sternal body fracture. Diffuse idiopathic skeletal hyperostosis is seen. There are mild degenerative changes seen throughout the thoracic spine. There are moderate degenerative changes are seen within the lumbar spine. Soft tissues: Normal. Procedure Note Terry Arthur MD - 06/26/2024 PROCEDURE: CT CHEST ABDOMEN PELVIS W CONT, DATE/TIME OF EXAM:06/26/2024 12:53 PM, LOCATION [facility] INDICATION: Trauma COMPARISON: None. TECHNIQUE: CT of the chest, abdomen, and pelvis was performed after the uneventful administration of 100 mL of Isovue 370 intravenous contrast according to standard protocol. Findings: Chest: Lower Neck and Axillae: Multiple left-sided thyroid nodules are seen with the largest measuring2.2 cm Lungs: No pulmonary parenchymal or airway process is present. There is a small volume right hemothorax. Mild subsegmental atelectasis within the right middle lobe as well as dependent atelectasis bilaterally. No suspicious pulmonary nodules are identified. No pneumothorax is present. Heart and Pericardium: The cardiac chambers are normal in size. No pericardial fluid orthickening is present. The coronary arteries are atherosclerotic. Mediastinum and Nga: No mediastinal hemorrhage is present. No enlarged lymph nodes arepresent. Multiple calcified lymph nodes are noted within the perihilar regions. Thoracic Vasculature: The aorta and its branch vessels are atherosclerotic. Abdomen/pelvis: Liver: Normal. Gallbladder and Bile Ducts: Normal. Spleen: Multiple calcified granulomas are noted in the spleen, likely sequelaeof prior granulomatous disease. Pancreas: Normal. Adrenals: There is a large 3.3 cm right adrenal gland mass of indeterminateetiology. The left adrenal gland is normal. Kidneys: Multiple simple appearing renal cysts are seen bilaterally. Gastrointestinal: The stomach and visualized loops of large and small bowel areunremarkable. Normal appendix. Mesentery/Peritoneum/Retroperitoneum: No free intraperitoneal air. No free fluid in the abdomen or pelvis. Bladder: Normal. Reproductive Organs: There is fluid within the patient's endometrial canal which attenuates higher than simple fluid compatible for endometrial blood products.Given the patient's postmenopausal age, this finding is concerning. Multiple calcified fibroids are seen. Abdominal Vasculature: Atherosclerotic calcification of the aorta and its branch vessels. Bones: Bone windows demonstrate no suspicious lytic or blastic lesions.Minimally displaced rib fractures on the right of the anterior/anterolateral sixth through ninth ribs. Minimally displaced mid sternal body fracture. Diffuse idiopathic skeletal hyperostosis is seen. There are mild degenerative changes seen throughout the thoracic spine. There aremoderate degenerative changes are seen within the lumbar spine. Soft tissues: Normal. Impression: 1.Mildly displaced mid sternal body fracture. Mildly displaced rib fractures of the right anterior/anterolateral sixth through ninth ribs. 2.Small volume right hemothorax. 3.Fluid in the endometrial canal. Recommend nonemergent gynecologic consultation. 4.There is a 3.3 right adrenal gland mass of indeterminate etiology. Recommend CT/MR adrenal protocol for further characterization ifclinically warranted. 5. Multiple thyroid nodules noted on the left with largest measuring 2.2 cm. Recommend nonemergent outpatient thyroid ultrasound if not recently performed for further characterization. > Dictated by Ruben Rodriguez DO (radiology aide). Terry Calderon MD have personally reviewed and interpreted this examination/study. > Interpreting Provider: Terry Arthur MD on 06/26/2024 1:12 PM Calderon Sim MD CT ORDERABLES * CT LUMBAR SPINE WO CONTRAST - T/L-spine trauma, Spine fracture (06/26/2024 12:50 PM HOT BRAIDER) Anatomical Region Laterality Modality Spine Computed Tomogra phy 06/26/2024 12:4 9 PM HOT BRAIDER Impressions 06/26/2024 7:09 PM HOT BRAIDER IMPRESSION: 1.No acute facial bone fractures identified. 2.No evidence of acute fracture in the cervical, thoracic, or lumbar spine. 3.Acute, nondisplaced fracture of the posterior left first rib. 4.Please refer to concurrent body CT for further findings. The report is dictated by Price Bates MD (radiology aide) Jeanie Calderon MD have personally reviewed and interpreted this examination/study. > Interpreting Provider: Jeanie Duong MD on 06/26/2024 7:09 PM Narrative 06/26/2024 7:09 PM HOT BRAIDER PROCEDURE: ??CT THORACIC SPINE WO CONTRAST, CT LUMBAR SPINE WO CONTRAST, CT FACIAL BONES WO CONTRAST, CT CERVICAL SPINE WO CONTRAST, DATE/TIME OF EXAM: 06/26/2024 12:53 PM, LOCATION ??[facility] INDICATION: Trauma ADDITIONAL CLINICAL INFORMATION: Ordering Provider Reason For Exam: Technologist Note: Additional: EXAMINATION: 1.Computed tomography (CT) of the maxillofacial bones, orbits, and paranasal sinuses without contrast 2.CT of the cervical spine without contrast 3.CT of the thoracic spine without contrast 4.CT of the lumbar spine without contrast TECHNIQUE: CT of the cervical spine, and maxillofacial bones, orbits, and paranasal sinuses was performed without contrast according to standard protocol. Reformatted axial, sagittal, and coronal images of the thoracic and lumbar spine were obtained by the technologist from a concurrently performed body CT and sent to the workstation for review. CT dose reduction technique was used, including Automated Exposure Control. COMPARISON: No prior study is available for comparison at the time of this dictation. FINDINGS: Maxillofacial: The orbits including the globes, optic nerves, retrobulbar fat and extraocular muscles appear normal. There is mild paranasal sinus disease. The hard palate, mandible, and temporomandibular joints appear normal. The mastoid air cells are clear. No acute facial bone fractures are identified. No soft tissue abnormality is identified. Cervical spine: The alignment is normal. The prevertebral soft tissue is normal in thickness. The bones are mildly osteopenic. Vertebral bodies are normal in height without evidence of acute fracture. Other than middle atlantoaxial joint osteoarthritis, the craniocervical junction appears normal. There is moderate to severe multilevel degenerative disc disease. Multilevel mild to moderate central canal stenosis secondary to posterior disc bulges and ligamentum flavum hypertrophy.. The facets appear normal. There are varying degrees of moderate to severe uncovertebral joint osteoarthritis with the same degree of neural foraminal stenosis at these levels. Acute soft tissue abnormality is enlarged appearance of the left thyroid lobe with the large heterogeneous nodules. Absent right thyroid lobe. No acute soft tissue findings noted. Thoracic spine: Acute, nondisplaced fracture of the left posterior first rib. The alignment is normal. The bones are mildly osteopenic. Vertebral bodies are normal in height without evidence of acute fracture. There is mild multilevel degenerative disc disease. Multilevel flowing anterior vertebral syndesmophytes, compatible with diffuse idiopathic skeletal hyperostosis. There is associated mild central canal stenosis.. Mild facet arthropathy at multiple levels. No high-grade neural foramina stenosis. Small right pleural effusion. Please refer to CT chest from same day for additional details. Lumbar spine: Mild levocurvature of the lumbar spine. No traumatic malalignment. The bones are mildly osteopenic. Vertebral bodies are normal in height without evidence of acute fracture. Osseous fusion across L1 and L2 vertebral bodies There is advanced multilevel degenerative disc disease. Moderate to severe multilevel central canal stenosis secondary to ligamentum flavum hypertrophy, and posterior osteophyte complexes. There are varying degrees of up to severe facet osteoarthritis with the same degree of neural foraminal stenosis at these levels. There is atherosclerotic calcification of the abdominal aorta and its branch vessels. Indeterminate 3.1 cm right adrenal mass. Multiple renal cysts. Multiple calcified uterine fibroids. Please refer to CT abdomen and pelvis from same day for additional details. Procedure Note Jeanie Duong MD - 06/26/2024 PROCEDURE: CT THORACIC SPINE WO CONTRAST, CT LUMBAR SPINE WO CONTRAST,CT FACIAL BONES WO CONTRAST, CT CERVICAL SPINE WO CONTRAST, DATE/TIME OFEXAM: 06/26/2024 12:53 PM, LOCATION [facility] INDICATION: Trauma ADDITIONAL CLINICAL INFORMATION: Ordering Provider Reason For Exam: Technologist Note: Additional: EXAMINATION: 1.Computed tomography (CT) of the maxillofacial bones, orbits, and paranasal sinuses without contrast 2.CT of the cervical spine without contrast 3.CT of the thoracic spine without contrast 4.CT of the lumbar spine without contrast TECHNIQUE: CT of the cervical spine, and maxillofacial bones, orbits,and paranasal sinuses was performed without contrast according to standard protocol. Reformatted axial, sagittal, and coronal images of thethoracic and lumbar spine were obtained by the technologist from a concurrently performed body CT and sent to the workstation for review. CT dosereduction technique was used, including Automated Exposure Control. COMPARISON: No prior study is available for comparison at the time ofthis dictation. FINDINGS: Maxillofacial: The orbits including the globes, optic nerves, retrobulbar fat and extraocular muscles appear normal. There is mild paranasal sinusdisease. The hard palate, mandible, and temporomandibular joints appear normal.The mastoid air cells are clear. No acute facial bone fractures areidentified. No soft tissue abnormality is identified. Cervical spine: The alignment is normal. The prevertebral soft tissue is normal in thickness. The bones are mildly osteopenic. Vertebral bodies are normalin height without evidence of acute fracture. Other than middleatlantoaxial joint osteoarthritis, the craniocervical junction appears normal. Thereis moderate to severe multilevel degenerative disc disease. Multilevel mildto moderate central canal stenosis secondary to posterior disc bulges and ligamentum flavum hypertrophy.. The facets appear normal. There arevarying degrees of moderate to severe uncovertebral joint osteoarthritis withthe same degree of neural foraminal stenosis at these levels. Acute soft tissue abnormality is enlarged appearance of the left thyroid lobe with the large heterogeneous nodules. Absent right thyroid lobe. No acute soft tissue findings noted. Thoracic spine: Acute, nondisplaced fracture of the left posterior first rib. The alignment is normal. The bones are mildly osteopenic. Vertebralbodies are normal in height without evidence of acute fracture. There is mild multilevel degenerative disc disease. Multilevel flowing anteriorvertebral syndesmophytes, compatible with diffuse idiopathic skeletalhyperostosis. There is associated mild central canal stenosis.. Mild facet arthropathyat multiple levels. No high-grade neural foramina stenosis. Small right pleural effusion. Please refer to CT chest from same dayfor additional details. Lumbar spine: Mild levocurvature of the lumbar spine. No traumatic malalignment. The bones are mildly osteopenic. Vertebral bodies are normal in heightwithout evidence of acute fracture. Osseous fusion across L1 and L2 vertebral bodies There is advanced multilevel degenerative disc disease. Moderateto severe multilevel central canal stenosis secondary to ligamentum flavum hypertrophy, and posterior osteophyte complexes. There are varyingdegrees of up to severe facet osteoarthritis with the same degree of neural foraminal stenosis at these levels. There is atherosclerotic calcification of the abdominal aorta and its branch vessels. Indeterminate 3.1 cm right adrenal mass. Multiple renal cysts. Multiple calcified uterine fibroids. Please refer to CT abdomenand pelvis from same day for additional details. IMPRESSION: 1.No acute facial bone fractures identified. 2.No evidence of acute fracture in the cervical, thoracic, or lumbarspine. 3.Acute, nondisplaced fracture of the posterior left first rib. 4.Please refer to concurrent body CT for further findings. The report is dictated by Price Bates MD (radiology aide) Jeanie Calderon MD have personally reviewed and interpreted this examination/study. > Interpreting Provider: Jeanie Duong MD on 06/26/2024 7:09 PM Calderon Sim MD CT ORDERABLES * CT THORACIC SPINE WO CONTRAST - T/L-spine trauma, spine fracture (06/26/2024 12:50 PM HOT BRAIDER) Anatomical Region Laterality Modality Spine Computed Tomogra phy 06/26/2024 12:4 9 PM HOT BRAIDER Impressions 06/26/2024 7:09 PM HOT BRAIDER IMPRESSION: 1.No acute facial bone fractures identified. 2.No evidence of acute fracture in the cervical, thoracic, or lumbar spine. 3.Acute, nondisplaced fracture of the posterior left first rib. 4.Please refer to concurrent body CT for further findings. The report is dictated by Price Bates MD (radiology aide) Jeanie Calderon MD have personally reviewed and interpreted this examination/study. > Interpreting Provider: Jeanie Duong MD on 06/26/2024 7:09 PM Narrative 06/26/2024 7:09 PM HOT BRAIDER PROCEDURE: ??CT THORACIC SPINE WO CONTRAST, CT LUMBAR SPINE WO CONTRAST, CT FACIAL BONES WO CONTRAST, CT CERVICAL SPINE WO CONTRAST, DATE/TIME OF EXAM: 06/26/2024 12:53 PM, LOCATION ??[facility] INDICATION: Trauma ADDITIONAL CLINICAL INFORMATION: Ordering Provider Reason For Exam: Technologist Note: Additional: EXAMINATION: 1.Computed tomography (CT) of the maxillofacial bones, orbits, and paranasal sinuses without contrast 2.CT of the cervical spine without contrast 3.CT of the thoracic spine without contrast 4.CT of the lumbar spine without contrast TECHNIQUE: CT of the cervical spine, and maxillofacial bones, orbits, and paranasal sinuses was performed without contrast according to standard protocol. Reformatted axial, sagittal, and coronal images of the thoracic and lumbar spine were obtained by the technologist from a concurrently performed body CT and sent to the workstation for review. CT dose reduction technique was used, including Automated Exposure Control. COMPARISON: No prior study is available for comparison at the time of this dictation. FINDINGS: Maxillofacial: The orbits including the globes, optic nerves, retrobulbar fat and extraocular muscles appear normal. There is mild paranasal sinus disease. The hard palate, mandible, and temporomandibular joints appear normal. The mastoid air cells are clear. No acute facial bone fractures are identified. No soft tissue abnormality is identified. Cervical spine: The alignment is normal. The prevertebral soft tissue is normal in thickness. The bones are mildly osteopenic. Vertebral bodies are normal in height without evidence of acute fracture. Other than middle atlantoaxial joint osteoarthritis, the craniocervical junction appears normal. There is moderate to severe multilevel degenerative disc disease. Multilevel mild to moderate central canal stenosis secondary to posterior disc bulges and ligamentum flavum hypertrophy.. The facets appear normal. There are varying degrees of moderate to severe uncovertebral joint osteoarthritis with the same degree of neural foraminal stenosis at these levels. Acute soft tissue abnormality is enlarged appearance of the left thyroid lobe with the large heterogeneous nodules. Absent right thyroid lobe. No acute soft tissue findings noted. Thoracic spine: Acute, nondisplaced fracture of the left posterior first rib. The alignment is normal. The bones are mildly osteopenic. Vertebral bodies are normal in height without evidence of acute fracture. There is mild multilevel degenerative disc disease. Multilevel flowing anterior vertebral syndesmophytes, compatible with diffuse idiopathic skeletal hyperostosis. There is associated mild central canal stenosis.. Mild facet arthropathy at multiple levels. No high-grade neural foramina stenosis. Small right pleural effusion. Please refer to CT chest from same day for additional details. Lumbar spine: Mild levocurvature of the lumbar spine. No traumatic malalignment. The bones are mildly osteopenic. Vertebral bodies are normal in height without evidence of acute fracture. Osseous fusion across L1 and L2 vertebral bodies There is advanced multilevel degenerative disc disease. Moderate to severe multilevel central canal stenosis secondary to ligamentum flavum hypertrophy, and posterior osteophyte complexes. There are varying degrees of up to severe facet osteoarthritis with the same degree of neural foraminal stenosis at these levels. There is atherosclerotic calcification of the abdominal aorta and its branch vessels. Indeterminate 3.1 cm right adrenal mass. Multiple renal cysts. Multiple calcified uterine fibroids. Please refer to CT abdomen and pelvis from same day for additional details. Procedure Note Jeanie Duong MD - 06/26/2024 PROCEDURE: CT THORACIC SPINE WO CONTRAST, CT LUMBAR SPINE WO CONTRAST,CT FACIAL BONES WO CONTRAST, CT CERVICAL SPINE WO CONTRAST, DATE/TIME OFEXAM: 06/26/2024 12:53 PM, LOCATION [facility] INDICATION: Trauma ADDITIONAL CLINICAL INFORMATION: Ordering Provider Reason For Exam: Technologist Note: Additional: EXAMINATION: 1.Computed tomography (CT) of the maxillofacial bones, orbits, and paranasal sinuses without contrast 2.CT of the cervical spine without contrast 3.CT of the thoracic spine without contrast 4.CT of the lumbar spine without contrast TECHNIQUE: CT of the cervical spine, and maxillofacial bones, orbits,and paranasal sinuses was performed without contrast according to standard protocol. Reformatted axial, sagittal, and coronal images of thethoracic and lumbar spine were obtained by the technologist from a concurrently performed body CT and sent to the workstation for review. CT dosereduction technique was used, including Automated Exposure Control. COMPARISON: No prior study is available for comparison at the time ofthis dictation. FINDINGS: Maxillofacial: The orbits including the globes, optic nerves, retrobulbar fat and extraocular muscles appear normal. There is mild paranasal sinusdisease. The hard palate, mandible, and temporomandibular joints appear normal.The mastoid air cells are clear. No acute facial bone fractures areidentified. No soft tissue abnormality is identified. Cervical spine: The alignment is normal. The prevertebral soft tissue is normal in thickness. The bones are mildly osteopenic. Vertebral bodies are normalin height without evidence of acute fracture. Other than middleatlantoaxial joint osteoarthritis, the craniocervical junction appears normal. Thereis moderate to severe multilevel degenerative disc disease. Multilevel mildto moderate central canal stenosis secondary to posterior disc bulges and ligamentum flavum hypertrophy.. The facets appear normal. There arevarying degrees of moderate to severe uncovertebral joint osteoarthritis withthe same degree of neural foraminal stenosis at these levels. Acute soft tissue abnormality is enlarged appearance of the left thyroid lobe with the large heterogeneous nodules. Absent right thyroid lobe. No acute soft tissue findings noted. Thoracic spine: Acute, nondisplaced fracture of the left posterior first rib. The alignment is normal. The bones are mildly osteopenic. Vertebralbodies are normal in height without evidence of acute fracture. There is mild multilevel degenerative disc disease. Multilevel flowing anteriorvertebral syndesmophytes, compatible with diffuse idiopathic skeletalhyperostosis. There is associated mild central canal stenosis.. Mild facet arthropathyat multiple levels. No high-grade neural foramina stenosis. Small right pleural effusion. Please refer to CT chest from same dayfor additional details. Lumbar spine: Mild levocurvature of the lumbar spine. No traumatic malalignment. The bones are mildly osteopenic. Vertebral bodies are normal in heightwithout evidence of acute fracture. Osseous fusion across L1 and L2 vertebral bodies There is advanced multilevel degenerative disc disease. Moderateto severe multilevel central canal stenosis secondary to ligamentum flavum hypertrophy, and posterior osteophyte complexes. There are varyingdegrees of up to severe facet osteoarthritis with the same degree of neural foraminal stenosis at these levels. There is atherosclerotic calcification of the abdominal aorta and its branch vessels. Indeterminate 3.1 cm right adrenal mass. Multiple renal cysts. Multiple calcified uterine fibroids. Please refer to CT abdomenand pelvis from same day for additional details. IMPRESSION: 1.No acute facial bone fractures identified. 2.No evidence of acute fracture in the cervical, thoracic, or lumbarspine. 3.Acute, nondisplaced fracture of the posterior left first rib. 4.Please refer to concurrent body CT for further findings. The report is dictated by Price Bates MD (radiology aide) Jeanie Calderon MD have personally reviewed and interpreted this examination/study. > Interpreting Provider: Jeanie Duong MD on 06/26/2024 7:09 PM Calderon Sim MD CT ORDERABLES * CT CERVICAL SPINE WO CONTRAST - C-Spine Trauma, Spine fracture (06/26/2024 12:50 PM HOT BRAIDER) Anatomical Region Laterality Modality Spine Computed Tomogra phy 06/26/2024 12:4 9 PM HOT BRAIDER Impressions 06/26/2024 7:09 PM HOT BRAIDER IMPRESSION: 1.No acute facial bone fractures identified. 2.No evidence of acute fracture in the cervical, thoracic, or lumbar spine. 3.Acute, nondisplaced fracture of the posterior left first rib. 4.Please refer to concurrent body CT for further findings. The report is dictated by Price Bates MD (radiology aide) Jeanie Calderon MD have personally reviewed and interpreted this examination/study. > Interpreting Provider: Jeanie Duong MD on 06/26/2024 7:09 PM Narrative 06/26/2024 7:09 PM HOT BRAIDER PROCEDURE: ??CT THORACIC SPINE WO CONTRAST, CT LUMBAR SPINE WO CONTRAST, CT FACIAL BONES WO CONTRAST, CT CERVICAL SPINE WO CONTRAST, DATE/TIME OF EXAM: 06/26/2024 12:53 PM, LOCATION ??[facility] INDICATION: Trauma ADDITIONAL CLINICAL INFORMATION: Ordering Provider Reason For Exam: Technologist Note: Additional: EXAMINATION: 1.Computed tomography (CT) of the maxillofacial bones, orbits, and paranasal sinuses without contrast 2.CT of the cervical spine without contrast 3.CT of the thoracic spine without contrast 4.CT of the lumbar spine without contrast TECHNIQUE: CT of the cervical spine, and maxillofacial bones, orbits, and paranasal sinuses was performed without contrast according to standard protocol. Reformatted axial, sagittal, and coronal images of the thoracic and lumbar spine were obtained by the technologist from a concurrently performed body CT and sent to the workstation for review. CT dose reduction technique was used, including Automated Exposure Control. COMPARISON: No prior study is available for comparison at the time of this dictation. FINDINGS: Maxillofacial: The orbits including the globes, optic nerves, retrobulbar fat and extraocular muscles appear normal. There is mild paranasal sinus disease. The hard palate, mandible, and temporomandibular joints appear normal. The mastoid air cells are clear. No acute facial bone fractures are identified. No soft tissue abnormality is identified. Cervical spine: The alignment is normal. The prevertebral soft tissue is normal in thickness. The bones are mildly osteopenic. Vertebral bodies are normal in height without evidence of acute fracture. Other than middle atlantoaxial joint osteoarthritis, the craniocervical junction appears normal. There is moderate to severe multilevel degenerative disc disease. Multilevel mild to moderate central canal stenosis secondary to posterior disc bulges and ligamentum flavum hypertrophy.. The facets appear normal. There are varying degrees of moderate to severe uncovertebral joint osteoarthritis with the same degree of neural foraminal stenosis at these levels. Acute soft tissue abnormality is enlarged appearance of the left thyroid lobe with the large heterogeneous nodules. Absent right thyroid lobe. No acute soft tissue findings noted. Thoracic spine: Acute, nondisplaced fracture of the left posterior first rib. The alignment is normal. The bones are mildly osteopenic. Vertebral bodies are normal in height without evidence of acute fracture. There is mild multilevel degenerative disc disease. Multilevel flowing anterior vertebral syndesmophytes, compatible with diffuse idiopathic skeletal hyperostosis. There is associated mild central canal stenosis.. Mild facet arthropathy at multiple levels. No high-grade neural foramina stenosis. Small right pleural effusion. Please refer to CT chest from same day for additional details. Lumbar spine: Mild levocurvature of the lumbar spine. No traumatic malalignment. The bones are mildly osteopenic. Vertebral bodies are normal in height without evidence of acute fracture. Osseous fusion across L1 and L2 vertebral bodies There is advanced multilevel degenerative disc disease. Moderate to severe multilevel central canal stenosis secondary to ligamentum flavum hypertrophy, and posterior osteophyte complexes. There are varying degrees of up to severe facet osteoarthritis with the same degree of neural foraminal stenosis at these levels. There is atherosclerotic calcification of the abdominal aorta and its branch vessels. Indeterminate 3.1 cm right adrenal mass. Multiple renal cysts. Multiple calcified uterine fibroids. Please refer to CT abdomen and pelvis from same day for additional details. Procedure Note Jeanie Duong MD - 06/26/2024 PROCEDURE: CT THORACIC SPINE WO CONTRAST, CT LUMBAR SPINE WO CONTRAST,CT FACIAL BONES WO CONTRAST, CT CERVICAL SPINE WO CONTRAST, DATE/TIME OFEXAM: 06/26/2024 12:53 PM, LOCATION [facility] INDICATION: Trauma ADDITIONAL CLINICAL INFORMATION: Ordering Provider Reason For Exam: Technologist Note: Additional: EXAMINATION: 1.Computed tomography (CT) of the maxillofacial bones, orbits, and paranasal sinuses without contrast 2.CT of the cervical spine without contrast 3.CT of the thoracic spine without contrast 4.CT of the lumbar spine without contrast TECHNIQUE: CT of the cervical spine, and maxillofacial bones, orbits,and paranasal sinuses was performed without contrast according to standard protocol. Reformatted axial, sagittal, and coronal images of thethoracic and lumbar spine were obtained by the technologist from a concurrently performed body CT and sent to the workstation for review. CT dosereduction technique was used, including Automated Exposure Control. COMPARISON: No prior study is available for comparison at the time ofthis dictation. FINDINGS: Maxillofacial: The orbits including the globes, optic nerves, retrobulbar fat and extraocular muscles appear normal. There is mild paranasal sinusdisease. The hard palate, mandible, and temporomandibular joints appear normal.The mastoid air cells are clear. No acute facial bone fractures areidentified. No soft tissue abnormality is identified. Cervical spine: The alignment is normal. The prevertebral soft tissue is normal in thickness. The bones are mildly osteopenic. Vertebral bodies are normalin height without evidence of acute fracture. Other than middleatlantoaxial joint osteoarthritis, the craniocervical junction appears normal. Thereis moderate to severe multilevel degenerative disc disease. Multilevel mildto moderate central canal stenosis secondary to posterior disc bulges and ligamentum flavum hypertrophy.. The facets appear normal. There arevarying degrees of moderate to severe uncovertebral joint osteoarthritis withthe same degree of neural foraminal stenosis at these levels. Acute soft tissue abnormality is enlarged appearance of the left thyroid lobe with the large heterogeneous nodules. Absent right thyroid lobe. No acute soft tissue findings noted. Thoracic spine: Acute, nondisplaced fracture of the left posterior first rib. The alignment is normal. The bones are mildly osteopenic. Vertebralbodies are normal in height without evidence of acute fracture. There is mild multilevel degenerative disc disease. Multilevel flowing anteriorvertebral syndesmophytes, compatible with diffuse idiopathic skeletalhyperostosis. There is associated mild central canal stenosis.. Mild facet arthropathyat multiple levels. No high-grade neural foramina stenosis. Small right pleural effusion. Please refer to CT chest from same dayfor additional details. Lumbar spine: Mild levocurvature of the lumbar spine. No traumatic malalignment. The bones are mildly osteopenic. Vertebral bodies are normal in heightwithout evidence of acute fracture. Osseous fusion across L1 and L2 vertebral bodies There is advanced multilevel degenerative disc disease. Moderateto severe multilevel central canal stenosis secondary to ligamentum flavum hypertrophy, and posterior osteophyte complexes. There are varyingdegrees of up to severe facet osteoarthritis with the same degree of neural foraminal stenosis at these levels. There is atherosclerotic calcification of the abdominal aorta and its branch vessels. Indeterminate 3.1 cm right adrenal mass. Multiple renal cysts. Multiple calcified uterine fibroids. Please refer to CT abdomenand pelvis from same day for additional details. IMPRESSION: 1.No acute facial bone fractures identified. 2.No evidence of acute fracture in the cervical, thoracic, or lumbarspine. 3.Acute, nondisplaced fracture of the posterior left first rib. 4.Please refer to concurrent body CT for further findings. The report is dictated by Price Bates MD (radiology aide) I, Jeanie Duong MD have personally reviewed and interpreted this examination/study. > Interpreting Provider: Jeanie Duong MD on 06/26/2024 7:09 PM Calderon Sim MD CT ORDERABLES * CT FACIAL BONES WO CONTRAST - Facial trauma, fx suspected, blunt (06/26/2024 12:50 PM HOT BRAIDER) Anatomical Region Laterality Modality Head Computed Tomogra phy 06/26/2024 12:4 9 PM HOT BRAIDER Impressions 06/26/2024 7:09 PM HOT BRAIDER IMPRESSION: 1.No acute facial bone fractures identified. 2.No evidence of acute fracture in the cervical, thoracic, or lumbar spine. 3.Acute, nondisplaced fracture of the posterior left first rib. 4.Please refer to concurrent body CT for further findings. The report is dictated by Price Bates MD (radiology aide) IJeanie MD have personally reviewed and interpreted this examination/study. > Interpreting Provider: Jeanie Duong MD on 06/26/2024 7:09 PM Narrative 06/26/2024 7:09 PM HOT BRAIDER PROCEDURE: ??CT THORACIC SPINE WO CONTRAST, CT LUMBAR SPINE WO CONTRAST, CT FACIAL BONES WO CONTRAST, CT CERVICAL SPINE WO CONTRAST, DATE/TIME OF EXAM: 06/26/2024 12:53 PM, LOCATION ??[facility] INDICATION: Trauma ADDITIONAL CLINICAL INFORMATION: Ordering Provider Reason For Exam: Technologist Note: Additional: EXAMINATION: 1.Computed tomography (CT) of the maxillofacial bones, orbits, and paranasal sinuses without contrast 2.CT of the cervical spine without contrast 3.CT of the thoracic spine without contrast 4.CT of the lumbar spine without contrast TECHNIQUE: CT of the cervical spine, and maxillofacial bones, orbits, and paranasal sinuses was performed without contrast according to standard protocol. Reformatted axial, sagittal, and coronal images of the thoracic and lumbar spine were obtained by the technologist from a concurrently performed body CT and sent to the workstation for review. CT dose reduction technique was used, including Automated Exposure Control. COMPARISON: No prior study is available for comparison at the time of this dictation. FINDINGS: Maxillofacial: The orbits including the globes, optic nerves, retrobulbar fat and extraocular muscles appear normal. There is mild paranasal sinus disease. The hard palate, mandible, and temporomandibular joints appear normal. The mastoid air cells are clear. No acute facial bone fractures are identified. No soft tissue abnormality is identified. Cervical spine: The alignment is normal. The prevertebral soft tissue is normal in thickness. The bones are mildly osteopenic. Vertebral bodies are normal in height without evidence of acute fracture. Other than middle atlantoaxial joint osteoarthritis, the craniocervical junction appears normal. There is moderate to severe multilevel degenerative disc disease. Multilevel mild to moderate central canal stenosis secondary to posterior disc bulges and ligamentum flavum hypertrophy.. The facets appear normal. There are varying degrees of moderate to severe uncovertebral joint osteoarthritis with the same degree of neural foraminal stenosis at these levels. Acute soft tissue abnormality is enlarged appearance of the left thyroid lobe with the large heterogeneous nodules. Absent right thyroid lobe. No acute soft tissue findings noted. Thoracic spine: Acute, nondisplaced fracture of the left posterior first rib. The alignment is normal. The bones are mildly osteopenic. Vertebral bodies are normal in height without evidence of acute fracture. There is mild multilevel degenerative disc disease. Multilevel flowing anterior vertebral syndesmophytes, compatible with diffuse idiopathic skeletal hyperostosis. There is associated mild central canal stenosis.. Mild facet arthropathy at multiple levels. No high-grade neural foramina stenosis. Small right pleural effusion. Please refer to CT chest from same day for additional details. Lumbar spine: Mild levocurvature of the lumbar spine. No traumatic malalignment. The bones are mildly osteopenic. Vertebral bodies are normal in height without evidence of acute fracture. Osseous fusion across L1 and L2 vertebral bodies There is advanced multilevel degenerative disc disease. Moderate to severe multilevel central canal stenosis secondary to ligamentum flavum hypertrophy, and posterior osteophyte complexes. There are varying degrees of up to severe facet osteoarthritis with the same degree of neural foraminal stenosis at these levels. There is atherosclerotic calcification of the abdominal aorta and its branch vessels. Indeterminate 3.1 cm right adrenal mass. Multiple renal cysts. Multiple calcified uterine fibroids. Please refer to CT abdomen and pelvis from same day for additional details. Procedure Note Jeanie Duong MD - 06/26/2024 PROCEDURE: CT THORACIC SPINE WO CONTRAST, CT LUMBAR SPINE WO CONTRAST,CT FACIAL BONES WO CONTRAST, CT CERVICAL SPINE WO CONTRAST, DATE/TIME OFEXAM: 06/26/2024 12:53 PM, LOCATION [facility] INDICATION: Trauma ADDITIONAL CLINICAL INFORMATION: Ordering Provider Reason For Exam: Technologist Note: Additional: EXAMINATION: 1.Computed tomography (CT) of the maxillofacial bones, orbits, and paranasal sinuses without contrast 2.CT of the cervical spine without contrast 3.CT of the thoracic spine without contrast 4.CT of the lumbar spine without contrast TECHNIQUE: CT of the cervical spine, and maxillofacial bones, orbits,and paranasal sinuses was performed without contrast according to standard protocol. Reformatted axial, sagittal, and coronal images of thethoracic and lumbar spine were obtained by the technologist from a concurrently performed body CT and sent to the workstation for review. CT dosereduction technique was used, including Automated Exposure Control. COMPARISON: No prior study is available for comparison at the time ofthis dictation. FINDINGS: Maxillofacial: The orbits including the globes, optic nerves, retrobulbar fat and extraocular muscles appear normal. There is mild paranasal sinusdisease. The hard palate, mandible, and temporomandibular joints appear normal.The mastoid air cells are clear. No acute facial bone fractures areidentified. No soft tissue abnormality is identified. Cervical spine: The alignment is normal. The prevertebral soft tissue is normal in thickness. The bones are mildly osteopenic. Vertebral bodies are normalin height without evidence of acute fracture. Other than middleatlantoaxial joint osteoarthritis, the craniocervical junction appears normal. Thereis moderate to severe multilevel degenerative disc disease. Multilevel mildto moderate central canal stenosis secondary to posterior disc bulges and ligamentum flavum hypertrophy.. The facets appear normal. There arevarying degrees of moderate to severe uncovertebral joint osteoarthritis withthe same degree of neural foraminal stenosis at these levels. Acute soft tissue abnormality is enlarged appearance of the left thyroid lobe with the large heterogeneous nodules. Absent right thyroid lobe. No acute soft tissue findings noted. Thoracic spine: Acute, nondisplaced fracture of the left posterior first rib. The alignment is normal. The bones are mildly osteopenic. Vertebralbodies are normal in height without evidence of acute fracture. There is mild multilevel degenerative disc disease. Multilevel flowing anteriorvertebral syndesmophytes, compatible with diffuse idiopathic skeletalhyperostosis. There is associated mild central canal stenosis.. Mild facet arthropathyat multiple levels. No high-grade neural foramina stenosis. Small right pleural effusion. Please refer to CT chest from same dayfor additional details. Lumbar spine: Mild levocurvature of the lumbar spine. No traumatic malalignment. The bones are mildly osteopenic. Vertebral bodies are normal in heightwithout evidence of acute fracture. Osseous fusion across L1 and L2 vertebral bodies There is advanced multilevel degenerative disc disease. Moderateto severe multilevel central canal stenosis secondary to ligamentum flavum hypertrophy, and posterior osteophyte complexes. There are varyingdegrees of up to severe facet osteoarthritis with the same degree of neural foraminal stenosis at these levels. There is atherosclerotic calcification of the abdominal aorta and its branch vessels. Indeterminate 3.1 cm right adrenal mass. Multiple renal cysts. Multiple calcified uterine fibroids. Please refer to CT abdomenand pelvis from same day for additional details. IMPRESSION: 1.No acute facial bone fractures identified. 2.No evidence of acute fracture in the cervical, thoracic, or lumbarspine. 3.Acute, nondisplaced fracture of the posterior left first rib. 4.Please refer to concurrent body CT for further findings. The report is dictated by Price Bates MD (radiology aide) I, Jeanie Duong MD have personally reviewed and interpreted this examination/study. > Interpreting Provider: Jeanie Duong MD on 06/26/2024 7:09 PM Calderon Sim MD CT ORDERABLES * CT Brain Stroke (06/26/2024 12:50 PM HOT BRAIDER) Anatomical Region Laterality Modality Head Computed Tomogra phy 06/26/2024 12:0 8 PM HOT BRAIDER Impressions 06/26/2024 12:19 PM HOT BRAIDER IMPRESSION: No acute intracranial hemorrhage or other acute abnormality by CT. Please note that MRI is more sensitive for evaluation of small acute ischemic infarcts. These findings were discussed with patient's care provider, , by on 06/26/2024 12:13 PM with read back verification. > Interpreting Provider: Jeanie Duong MD on 06/26/2024 12:19 PM Narrative 06/26/2024 12:19 PM HOT BRAIDER PROCEDURE: ??CT BRAIN STROKE, DATE/TIME OF EXAM: ??06/26/2024 11:58 AM, LOCATION ??[facility] INDICATION: R41.82: Altered mental status, unspecified altered mental status type ADDITIONAL CLINICAL INFORMATION: Ordering Provider Reason For Exam: ??AMS, aphasia Technologist Note: Additional: COMPARISON: None. TECHNIQUE: Noncontrast CT brain was performed utilizing standard protocol. CT dose reduction technique was used, including Automated Exposure Control. FINDINGS: No acute intracranial hemorrhage or intra- or extra-axial fluid collections are identified. There is mild cerebral volume loss with associated ex vacuo ventricular dilatation. The basal cisterns are patent. No mass effect or midline shift is seen. 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 The matos-white matter differentiation otherwise appears normal. Periventricular white matter hypoattenuation is a nonspecific finding that may be indicative of chronic small vessel ischemic disease. There is atherosclerotic calcification of the carotid siphons. Other than bilateral cataract extractions, mild to moderate mucosal thickening in the left maxillary sinus, mild mucosal thickening in the ethmoidal air cells, the visualized portions of the orbits, paranasal sinuses, and mastoids appear normal. No acute calvarial fracture is identified. Procedure Note Jeanie Duong MD - 06/26/2024 PROCEDURE: CT BRAIN STROKE, DATE/TIME OF EXAM: 06/26/2024 11:58 AM, LOCATION [facility] INDICATION: R41.82: Altered mental status, unspecified altered mental status type ADDITIONAL CLINICAL INFORMATION: Ordering Provider Reason For Exam: AMS, aphasia Technologist Note: Additional: COMPARISON: None. TECHNIQUE: Noncontrast CT brain was performed utilizing standard protocol. CT dose reduction technique was used, including Automated ExposureControl. FINDINGS: No acute intracranial hemorrhage or intra- or extra-axial fluidcollections are identified. There is mild cerebral volume loss with associated exvacuo ventricular dilatation. The basal cisterns are patent. No mass effect or midline shift is seen. 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 The matos-white matterdifferentiation otherwise appears normal. Periventricular white matter hypoattenuation ale nonspecific finding that may be indicative of chronic small vesselischemic disease. There is atherosclerotic calcification of the carotid siphons. Other than bilateral cataract extractions, mild to moderate mucosal thickening in the left maxillary sinus, mild mucosal thickening in the ethmoidal air cells, the visualized portions of the orbits, paranasal sinuses, and mastoids appear normal. No acute calvarial fracture is identified. IMPRESSION: No acute intracranial hemorrhage or other acute abnormality by CT.Please note that MRI is more sensitive for evaluation of small acute ischemic infarcts. These findings were discussed with patient's care provider, ,by on 06/26/2024 12:13 PM with read back verification. > Interpreting Provider: Jeanie Duong MD on 06/26/2024 12:19 PM Calderon Sim MD CT ORDERABLES * EKG 12-LEAD (06/26/2024 12:30 PM HOT BRAIDER) Ventricular Rate 94 BPM [facility] Atrial Rate 88 BPM [facility] QRS Duration ms 90 ms [facility] Q-T Interval ms 388 ms [facility] QTC Calculation (Bezet) 485 ms [facility] Calculated R [place] -33 degrees [facility] Calculated T [place] 13 degrees [facility] Interpretation EKG UNDETERMINED RHYTHM ??- Artifact makes it difficult to determine rhythm LEFT AXIS DEVIATION MODERATE VOLTAGE CRITERIA FOR LVH, MAY BE NORMAL VARIANT ( R in aVL , Michael product ) INFERIOR INFARCT , AGE UNDETERMINED CANNOT RULE OUT ANTERIOR INFARCT , AGE UNDETERMINED ABNORMAL ECG NO PREVIOUS ECGS AVAILABLE Confirmed by TRENT NESBITT DO ([id number]) on 07/02/2024 4:44:56 PM [facility] 06/26/2024 12:3 0 PM HOT BRAIDER 07/02/2024 4:44 PM HOT BRAIDER Calderon Sim MD ECG ORDERABLES Performing Organization Address City/[facility]/ZIP Co de Phone Number [facility] * (ABNORMAL) PTT [facility] (06/26/2024 12:25 PM HOT BRAIDER) APTT 21.0(L) 23.0 - 38.4 Seconds 06/26/2024 12:56 PM HOT BRAIDER [facility] Comment:Suggested therapeuti c range for full dose I.V. unfractionated heparin therapy for venous thromboembolism is 71 to 109 seconds. Blood BLOOD SPECIMEN / Unknown Venipuncture / Unknown 06/26/2024 12:25 PM HOT BRAIDER 06/26/2024 12:31 PM HOT BRAIDER Calderon Sim MD LAB - COAGULATION OR DERABLES [facility] [address] [place] [address], [facility] [phone] * PT-INR [facility] (06/26/2024 12:25 PM HOT BRAIDER) [facility] PT 12.7 12.1 - 14.8 Seconds 06/26/2024 12:56 PM HOT BRAIDER [facility] INR 1.0 See Comment 06/26/2024 12:56 PM HOT BRAIDER [facility] Comment:The suggested therap eutic range for standard coumadin (warfarin) therapy is an INR of 2.0-3.0. For high-risk patients (Mechanical Mitral Valve Prosthesis, etc.), the suggested prophylactic therapeutic range is an INR of 2.5-3.5. Blood BLOOD SPECIMEN / Unknown Venipuncture / Unknown 06/26/2024 12:25 PM HOT BRAIDER 06/26/2024 12:31 PM HOT BRAIDER Calderon Sim MD LAB - COAGULATION OR DERABLES Performing Organization Address City/[facility]/ZIP Co de Phone Number [address] [address], [facility] [phone] * TYPE + SCREEN PANEL (06/26/2024 12:25 PM HOT BRAIDER) [facility] Antibody Screen NEG 06/26/2024 1:13 PM HOT BRAIDER [facility] ABO Rh AB POS 06/26/2024 1:13 PM HOT BRAIDER [facility] Blood Bank BLOOD SPECIMEN / Unknown Venipuncture / Unknown 06/26/2024 12:25 PM HOT BRAIDER 06/26/2024 12:30 PM HOT BRAIDER Calderon Sim MD LAB - BLOOD BANK ORD ERABLES [facility] [address] [place] [id number], [facility] [phone] * (ABNORMAL) CBC W AUTO DIFFERENTIAL (06/26/2024 12:25 PM HOT BRAIDER) [facility] WBC 12.0(H) 4.0 - 10.7 x10E9/L 06/26/2024 12:39 PM HOT BRAIDER [facility] RBC Count 4.66 3.90 - 5.20 x10E12/L 06/26/2024 12:39 PM [facility] Hemoglobin 14.3 11.9 - 15.8 g/dL 06/26/2024 12:39 PM [facility] Hematocrit 40.3 34.8 - 46.1 % 06/26/2024 12:39 PM [facility] MCV 86.5 80.0 - 98.0 fL 06/26/2024 12:39 PM [facility] MCH 30.7 26.7 - 33.6 pg 06/26/2024 12:39 PM [facility] MCHC 35.5 31.7 - 36.3 g/dL 06/26/2024 12:39 PM [facility] RDW-CV 12.9 11.3 - 14.8 % 06/26/2024 12:39 PM [facility] Platelet Count 174 150 - 420 x10E9/L 06/26/2024 12:39 PM [facility] MPV 10.0 7.8 - 11.4 fL 06/26/2024 12:39 PM [facility] Neutrophil % 73.6 41.0 - 74.0 % 06/26/2024 12:39 PM [facility] Lymphocyte % 18.0 17.0 - 47.0 % 06/26/2024 12:39 PM [facility] Monocyte % 7.0 3.0 - 11.0 % 06/26/2024 12:39 PM [facility] Eosinophil % 0.5 0.0 - 7.0 % 06/26/2024 12:39 PM [facility] Basophil % 0.3 0.0 - 1.6 % 06/26/2024 12:39 PM [facility] Immature Granulocytes % 0.6 0.0 - 1.0 % 06/26/2024 12:39 PM [facility] Neutrophil Absolute 8.84(H) 1.60 - 7.50 x10E9/L 06/26/2024 12:39 PM [facility] Lymphocyte Absolute 2.16 1.00 - 4.40 x10E9/L 06/26/2024 12:39 PM [facility] Monocyte Absolute 0.84 0.15 - 1.00 x10E9/L 06/26/2024 12:39 PM HOT BRAIDER [facility] Eosinophil Absolute 0.06 0.00 - 0.60 x10E9/L 06/26/2024 12:39 PM HOT BRAIDER [facility] Basophil Absolute 0.03 0.00 - 0.13 x10E9/L 06/26/2024 12:39 PM HOT BRAIDER [facility] Blood BLOOD SPECIMEN / Unknown Venipuncture / Unknown 06/26/2024 12:25 PM HOT BRAIDER 06/26/2024 12:31 PM HOT BRAIDER Calderon Sim MD LAB - HEMATOLOGY ORD [place] [address] [address], [place] [phone] * LIPASE BLOOD (06/26/2024 12:25 PM HOT BRAIDER) Lipase 24 8 - 78 U/L 06/26/2024 1:04 PM HOT BRAIDER [facility] Blood BLOOD SPECIMEN / Unknown Venipuncture / Unknown 06/26/2024 12:25 PM HOT BRAIDER 06/26/2024 12:31 PM HOT BRAIDER Narrative [facility] - 06/26/2024 1:04 PM HOT BRAIDER Lipase results from the [employer] Alinity analyzer may not be comparable with other methodologies. Calderon Sim MD LAB - CHEMISTRY [place] [facility] Performing Organization Address City/[facility]/ZIP Co de Phone Number [address] [address], [place] [phone] * AMYLASE BLOOD (06/26/2024 12:25 PM HOT BRAIDER) Amylase 66 25 - 125 U/L 06/26/2024 1:04 PM HOT BRAIDER [facility] Blood BLOOD SPECIMEN / Unknown Venipuncture / Unknown 06/26/2024 12:25 PM HOT BRAIDER 06/26/2024 12:31 PM HOT BRAIDER Calderon Sim MD LAB - CHEMISTRY [place] [address] [place] [address], [facility] [phone] * ALCOHOL ETHYL BLOOD (06/26/2024 12:25 PM HOT BRAIDER) Ethanol (mg/dL) <10 <10 mg/dL 1:04 PM [facility] Ethanol Calculated (g/dL) <0.010 <=0.010 g/dL 06/26/2024 1:04 PM [facility] Blood BLOOD SPECIMEN / Unknown Venipuncture / Unknown 06/26/2024 12:25 PM HOT BRAIDER 06/26/2024 12:31 PM HOT BRAIDER Narrative [facility] - 06/26/2024 1:04 PM HOT BRAIDER Ethanol Interp <10: None Detected. Depression of [employer]CH[employer]ING SPECIALIST: >100 mg/dl Potentially Critical: >250 mg/dl Potentially Fatal >400 mg/dl Ethanol in the patient's blood will contribute to the osmolar gap. Ethanol's contribution to the osmolar gap can be estimated by dividing the concentration of ethanol in mg/dL by 4.6. This test is for clinical use only and does not equal a CHRISTIN for legal purposes. Calderon Sim MD LAB - CHEMISTRY [facility] Organization Address City/State/ZIP Co de Phone Number [facility] [address] [place] [address], [facility] [phone] from Last 3 Months Advance Directives Documents on File Type Date Recorded Patient [employer] Intern Expl anation Adv Directive/Living Will/POA 07/04/2024 12:28 PM Adv Directive/Living Will/POA 06/26/2024 POA Adv Directive/Living Will/POA 06/26/2024 Living will * DNR - IF PULSELESS NO CPR, NO SHOCK (Latest Code Status on File) Date Activated Date Inactivated Comments 06/26/2024 5:48 PM 07/15/2024 3:28 PM Question Answer Comments : DO NOT discontinue a ny active orders without asking attending physician. Care Teams Liquor Rectifier Relationship Specialty Start Date End Date Geoff Clement MD [address] [place] [address] PCP - General Family Medicine 06/26/24
--- OUTSIDE RECORDS SUMMARY | 2024-08-19 08:42 | XMS_ITS | Patient Health Summary ---
Author Organization [facility] Address [address] [place] [address] Care Team Providers Care Duster Tender Name Role Phone Geoff Clement MD Primary Care Provider [phone] Note from [facility],non-owned Affiliates and Associated Physician Practices is amultiple site organization consisting of ambulatory clinics and hospital sitesin [place], [place], [place] and [place]. This disclosure is being madepursuant to the Care Everywhere program and may not contain all information available regarding this patient. Last updated 18.[facility] Allergies No known active allergies Medications * Be aware that medications may not be up to date on this document. Alwaysverify current medications with the patient. * benazepril (Lotensin) 40 MG tablet(Started 04/07/2024) Take 1 (one) tablet by mouth once daily * metFORMIN ER 24hr (Glucophage XR) 500 MG tablet(Started 05/09/2024) Take 4 (four) tablets by mouth once daily * Trulicity 0.75 MG/0.5ML injection(Started 06/22/2024) Inject 0.75 (three-quarters) mg subcutaneously every 7 days * amLODIPine (Norvasc) 5 MG tablet(Started 07/16/2024) Take 1 (one) tablet by mouth once daily * atorvastatin (Lipitor) 80 MG tablet(Started 07/15/2024) Take 1 (one) tablet by mouth at bedtime * acetaminophen (Tylenol) 325 MG tablet(Started 07/15/2024) Take 2 (two) tablets by mouth every 6 hours as needed Maximum allowable Acetaminophen amount = 4 Grams (4000 mg) / 24 hours. * aspirin (Aspirin) 81 MG chew tablet(Started 07/16/2024) Take 1 (one) tablet by mouth once daily * levETIRAcetam (Keppra) 750 MG tablet(Started 07/15/2024) Take 2 (two) tablets by mouth 2 times daily * lidocaine (Lidoderm) 5 % patch(Started 07/16/2024) Apply 1 (one) patch to skin every 24 hours Apply patch to most painful area and remove after 12 hours. May reapply a new patch 12 hours later. * loperamide (Imodium) 2 MG capsule(Started 07/15/2024) Take 1 (one) capsule by mouth 4 times daily as needed for Diarrhea Ended Medications* cephalexin (Keflex) 500 MG capsule(Started 07/15/2024) () Take 1 (one) capsule by mouth 2 times daily for 7 days Reasons: Simple Infection of the Urinary Tract Active Problems Problem Noted Date Diagnosed Date [...] you are drinking? Patient does not drink 12/08/202 4 Q3: How often do you have si x or more drinks on one occasion? Never 06/26/2024 Overall Financial Resource Strain (CARDIA) Answe r Date Recorded How hard is it for you to pa y for the very basics like food, housing, medical care, and heating? Not very hard 07/15/2024 PHQ-2 Answer Date Recorded Patient Health Questionnaire-2 Score 0 07/07/2024 [facility] - Occupational Stress Questionnaire Answer Date [...] any time in the past 12 m [facility], were you homeless or living in a [facility] (including now)? No 07/15/2024 Sex and Gender Information Value Date Recorded Sex Assigned at Not on file Gender Identity Not on file Sexual Orientation Not on file Last Filed Vital Signs Vital Sign Reading Time Taken Comments Blood Pressure 103/67 07/15/2024 9:15 AM [facility]ER Pulse 80 07/15/2024 9:15 AM [facility] Temperature 36.9 ??C (98.5 ??F) 07/15/2024 9:15 AM CS T Respiratory Rate 18 07/15/2024 9:15 AM SN[facility]ER Oxygen Saturation 96% 07/15/2024 9:15 AM SN[facility]ER Inhaled Oxygen Concentration - - Weight 81.6 kg (180 lb) 06/30/2024 9:03 AM SN[facility]KER Height 172.7 cm (5' 7.99 ) 06/30/2024 9:03 AM CS T Body Mass Index 27.38 06/30/2024 9:03 AM [facility] Procedures * GLUCOSE - POINT OF CARE(Performed 07/15/2024) * URINALYSIS REFLEX TO MICROSCOPIC NO CULTURE(Performed 07/15/2024) * GLUCOSE - POINT OF CARE(Performed 07/15/2024) * GLUCOSE - POINT OF CARE(Performed 07/14/2024) * BASIC METABOLIC PANEL (CALCIUM TOTAL)(Performed 07/14/2024) * CBC W/O DIFFERENTIAL(Performed 07/14/2024) * GLUCOSE - POINT OF CARE(Performed 07/14/2024) * GLUCOSE - POINT OF CARE(Performed 07/14/2024) * GLUCOSE - POINT OF CARE(Performed 07/14/2024) * GLUCOSE - POINT OF CARE(Performed 07/13/2024) * GASTROINTESTINAL PATHOGEN PANEL BY PCR(Performed 07/13/2024) * GLUCOSE - POINT OF CARE(Performed 07/13/2024) * GLUCOSE - POINT OF CARE(Performed 07/13/2024) * GLUCOSE - POINT OF CARE(Performed 07/13/2024) * CBC W/O DIFFERENTIAL(Performed 07/13/2024) * BASIC METABOLIC PANEL (CALCIUM TOTAL)(Performed 07/13/2024) * GLUCOSE - POINT OF CARE(Performed 07/12/2024) * GLUCOSE - POINT OF CARE(Performed 07/12/2024) * GLUCOSE - POINT OF CARE(Performed 07/12/2024) * GLUCOSE - POINT OF CARE(Performed 07/12/2024) * GLUCOSE - POINT OF CARE(Performed 07/11/2024) * GLUCOSE - POINT OF CARE(Performed 07/11/2024) * GLUCOSE - POINT OF CARE(Performed 07/11/2024) * CBC W/O DIFFERENTIAL(Performed 07/11/2024) * BASIC METABOLIC PANEL (CALCIUM TOTAL)(Performed 07/11/2024) * GLUCOSE - POINT OF CARE(Performed 07/10/2024) * GLUCOSE - POINT OF CARE(Performed 07/10/2024) * GLUCOSE - POINT OF CARE(Performed 07/10/2024) * CBC W/O DIFFERENTIAL(Performed 07/10/2024) * BASIC METABOLIC PANEL (CALCIUM TOTAL)(Performed 07/10/2024) * GLUCOSE - POINT OF CARE(Performed 07/10/2024) * GLUCOSE - POINT OF CARE(Performed 07/10/2024) * GLUCOSE - POINT OF CARE(Performed 07/10/2024) * GLUCOSE - POINT OF CARE(Performed 07/09/2024) * GLUCOSE - POINT OF CARE(Performed 07/09/2024) * XR CHEST 1VW PORTABLE(Performed 07/09/2024) Performed for Hypotension, unspecified hypotension type * GLUCOSE - POINT OF CARE(Performed 07/09/2024) * GLUCOSE - POINT OF CARE(Performed 07/09/2024) * PHOSPHORUS BLOOD(Performed 07/09/2024) * MAGNESIUM BLOOD(Performed 07/09/2024) * CBC W/O DIFFERENTIAL(Performed 07/09/2024) * BASIC METABOLIC PANEL (CALCIUM TOTAL)(Performed 07/09/2024) * GLUCOSE - POINT OF CARE(Performed 07/08/2024) * GLUCOSE - POINT OF CARE(Performed 07/08/2024) * GLUCOSE - POINT OF CARE(Performed 07/08/2024) * GLUCOSE - POINT OF CARE(Performed 07/08/2024) * GLUCOSE - POINT OF CARE(Performed 07/08/2024) * GLUCOSE - POINT OF CARE(Performed 07/08/2024) * PHOSPHORUS BLOOD(Performed 07/08/2024) * MAGNESIUM BLOOD(Performed 07/08/2024) * CBC W/O DIFFERENTIAL(Performed 07/08/2024) * BASIC METABOLIC PANEL (CALCIUM TOTAL)(Performed 07/08/2024) * GLUCOSE - POINT OF CARE(Performed 07/08/2024) * GLUCOSE - POINT OF CARE(Performed 07/07/2024) * GLUCOSE - POINT OF CARE(Performed 07/07/2024) * GLUCOSE - POINT OF CARE(Performed 07/07/2024) * GLUCOSE - POINT OF CARE(Performed 07/07/2024) * GLUCOSE - POINT OF CARE(Performed 07/07/2024) * PHOSPHORUS BLOOD(Performed 07/07/2024) * MAGNESIUM BLOOD(Performed 07/07/2024) * CBC W/O DIFFERENTIAL(Performed 07/07/2024) * BASIC METABOLIC PANEL (CALCIUM TOTAL)(Performed 07/07/2024) * GLUCOSE - POINT OF CARE(Performed 07/07/2024) * GLUCOSE - POINT OF CARE(Performed 07/06/2024) * GLUCOSE - POINT OF CARE(Performed 07/06/2024) * GLUCOSE - POINT OF CARE(Performed 07/06/2024) * PHOSPHORUS BLOOD(Performed 07/06/2024) * MAGNESIUM BLOOD(Performed 07/06/2024) * CBC W/O DIFFERENTIAL(Performed 07/06/2024) * BASIC METABOLIC PANEL (CALCIUM TOTAL)(Performed 07/06/2024) * GLUCOSE - POINT OF CARE(Performed 07/05/2024) * GLUCOSE - POINT OF CARE(Performed 07/05/2024) * GLUCOSE - POINT OF CARE(Performed 07/05/2024) * PHOSPHORUS BLOOD(Performed 07/05/2024) * MAGNESIUM BLOOD(Performed 07/05/2024) * CBC W/O DIFFERENTIAL(Performed 07/05/2024) * BASIC METABOLIC PANEL (CALCIUM TOTAL)(Performed 07/05/2024) * XR ABDOMEN KUB PORTABLE(Performed 07/05/2024) Performed for Altered mental status, unspecified altered mental status type, Right sided weakness, Left-sided weakness * GLUCOSE - POINT OF CARE(Performed 07/05/2024) * GLUCOSE - POINT OF CARE(Performed 07/04/2024) * XR CHEST 1VW PORTABLE(Performed 07/04/2024) Performed for Other cough * GLUCOSE - POINT OF CARE(Performed 07/04/2024) * GLUCOSE - POINT OF CARE(Performed 07/04/2024) * PHOSPHORUS BLOOD(Performed 07/04/2024) * MAGNESIUM BLOOD(Performed 07/04/2024) * CBC W/O DIFFERENTIAL(Performed 07/04/2024) * BASIC METABOLIC PANEL (CALCIUM TOTAL)(Performed 07/04/2024) * GLUCOSE - POINT OF CARE(Performed 07/04/2024) * GLUCOSE - POINT OF CARE(Performed 07/03/2024) * GLUCOSE - POINT OF CARE(Performed 07/03/2024) * GLUCOSE - POINT OF CARE(Performed 07/03/2024) * PHOSPHORUS BLOOD(Performed 07/03/2024) * MAGNESIUM BLOOD(Performed 07/03/2024) * CBC W/O DIFFERENTIAL(Performed 07/03/2024) * BASIC METABOLIC PANEL (CALCIUM TOTAL)(Performed 07/03/2024) * GLUCOSE - POINT OF CARE(Performed 07/03/2024) * GLUCOSE - POINT OF CARE(Performed 07/02/2024) * GLUCOSE - POINT OF CARE(Performed 07/02/2024) * GLUCOSE - POINT OF CARE(Performed 07/02/2024) * PHOSPHORUS BLOOD(Performed 07/02/2024) * MAGNESIUM BLOOD(Performed 07/02/2024) * CBC W/O DIFFERENTIAL(Performed 07/02/2024) * BASIC METABOLIC PANEL (CALCIUM TOTAL)(Performed 07/02/2024) * GLUCOSE - POINT OF CARE(Performed 07/01/2024) * GLUCOSE - POINT OF CARE(Performed 07/01/2024) * GLUCOSE - POINT OF CARE(Performed 07/01/2024) * GLUCOSE - POINT OF CARE(Performed 07/01/2024) * PHOSPHORUS BLOOD(Performed 06/30/2024) * MAGNESIUM BLOOD(Performed 06/30/2024) * CBC W/O DIFFERENTIAL(Performed 06/30/2024) * BASIC METABOLIC PANEL (CALCIUM TOTAL)(Performed 06/30/2024) * CBC W/O DIFFERENTIAL(Performed 06/30/2024) * BASIC METABOLIC PANEL (CALCIUM TOTAL)(Performed 06/30/2024) * GLUCOSE - POINT OF CARE(Performed 06/30/2024) * GLUCOSE - POINT OF CARE(Performed 06/30/2024) * GLUCOSE - POINT OF CARE(Performed 06/30/2024) * TSH REFLEX FREE T4(Performed 06/30/2024) * PHOSPHORUS BLOOD(Performed 06/30/2024) * MAGNESIUM BLOOD(Performed 06/30/2024) * CBC W/O DIFFERENTIAL(Performed 06/30/2024) * BASIC METABOLIC PANEL (CALCIUM TOTAL)(Performed 06/30/2024) * GLUCOSE - POINT OF CARE(Performed 06/29/2024) * GLUCOSE - POINT OF CARE(Performed 06/29/2024) * GLUCOSE - POINT OF CARE(Performed 06/29/2024) * ECHO COMPLETE W CONTRAST W BUBBLE STUDY(Performed 06/29/2024) Performed for Right sided weakness * GLUCOSE - POINT OF CARE(Performed 06/29/2024) * GLUCOSE - POINT OF CARE(Performed 06/29/2024) * XR CHEST 1VW PORTABLE(Performed 06/29/2024) Performed for Right sided weakness * GLUCOSE - POINT OF CARE(Performed 06/29/2024) * PHOSPHORUS BLOOD(Performed 06/29/2024) * MAGNESIUM BLOOD(Performed 06/29/2024) * CBC W/O DIFFERENTIAL(Performed 06/29/2024) * BASIC METABOLIC PANEL (CALCIUM TOTAL)(Performed 06/29/2024) * GLUCOSE - POINT OF CARE(Performed 06/29/2024) * GLUCOSE - POINT OF CARE(Performed 06/28/2024) * GLUCOSE - POINT OF CARE(Performed 06/28/2024) * XR CHEST 1VW PORTABLE(Performed 06/28/2024) Performed for Right sided weakness * CARDIAC EKG ORDER(Performed 06/28/2024) * GLUCOSE - POINT OF CARE(Performed 06/28/2024) * PHOSPHORUS BLOOD(Performed 06/28/2024) * MAGNESIUM BLOOD(Performed 06/28/2024) * CBC W/O DIFFERENTIAL(Performed 06/28/2024) * BASIC METABOLIC PANEL (CALCIUM TOTAL)(Performed 06/28/2024) * GLUCOSE - POINT OF CARE(Performed 06/28/2024) * GLUCOSE - POINT OF CARE(Performed 06/27/2024) * GLUCOSE - POINT OF CARE(Performed 06/27/2024) * XR ABDOMEN KUB PORTABLE(Performed 06/27/2024) Performed for Dysphagia, unspecified type * GLUCOSE - POINT OF CARE(Performed 06/27/2024) * GLUCOSE - POINT OF CARE(Performed 06/27/2024) * XR CHEST 1VW PORTABLE(Performed 06/27/2024) Performed for Hemothorax on right * LIPID PROFILE(Performed 06/27/2024) * CBC W/O DIFFERENTIAL(Performed 06/27/2024) * BASIC METABOLIC PANEL (CALCIUM TOTAL)(Performed 06/27/2024) * HEMOGLOBIN A1C(Performed 06/27/2024) * GLUCOSE - POINT OF CARE(Performed 06/27/2024) * TROPONIN-I HIGH SENSITIVE REFLEX 1HOUR(Performed 06/26/2024) * GLUCOSE - POINT OF CARE(Performed 06/26/2024) * MRI BRAIN WO CONTRAST(Performed 06/26/2024) Performed for Altered mental status, unspecified altered mental status type, Closed fracture of body of sternum, initial encounter, Closed fracture of multiple ribs of right side, initial encounter, Hemothorax on right * TROPONIN-I HIGH SENSITIVE BASELINE + 1HR(Performed 06/26/2024) * TROPONIN-I HIGH SENSITIVE REFLEX 1HOUR(Performed 06/26/2024) * PT EVAL AND TREAT(Performed 06/26/2024) * OT EVAL AND TREAT(Performed 06/26/2024) * URINE MICROSCOPIC ONLY REFLEX TO CULTURE(Performed 06/26/2024) * URINALYSIS REFLEX MICROSCOPIC REFLEX CULTURE(Performed 06/26/2024) * CULTURE URINE(Performed 06/26/2024) * CULTURE BLOOD(Performed 06/26/2024) * CULTURE BLOOD(Performed 06/26/2024) * TROPONIN-I HIGH SENSITIVE BASELINE + 1HR(Performed 06/26/2024) * LACTIC ACID BLOOD REFLEX TO REPEAT(Performed 06/26/2024) * URINE DRUG SCREEN IMMUNOASSAY(Performed 06/26/2024) * BLOOD TYPE VERIFICATION(Performed 06/26/2024) * TROPONIN-I HIGH SENSITIVE REFLEX 1HOUR(Performed 06/26/2024) * CT ANGIO BRAIN NECK STROKE(Performed 06/26/2024) Performed for Altered mental status, unspecified altered mental status type * CT FACIAL BONES WO CONTRAST(Performed 06/26/2024) Performed for Altered mental status, unspecified altered mental status type * CT LUMBAR SPINE WO CONTRAST(Performed 06/26/2024) Performed for Altered mental status, unspecified altered mental status type * CT THORACIC SPINE WO CONTRAST(Performed 06/26/2024) Performed for Altered mental status, unspecified altered mental status type * CT CHEST ABDOMEN PELVIS W CONT(Performed 06/26/2024) Performed for Altered mental status, unspecified altered mental status type * CT CERVICAL SPINE WO CONTRAST(Performed 06/26/2024) Performed for Altered mental status, unspecified altered mental status type * CT BRAIN STROKE(Performed 06/26/2024) Performed for Altered mental status, unspecified altered mental status type * XR CHEST 1VW PORTABLE(Performed 06/26/2024) Performed for Altered mental status, unspecified altered mental status type * EKG 12-LEAD(Performed 06/26/2024) Performed for Altered mental status, unspecified altered mental status type * TYPE + SCREEN PANEL(Performed 06/26/2024) * TROPONIN-I HIGH SENSITIVE BASELINE + 1HR(Performed 06/26/2024) * PTT [facility](Performed 06/26/2024) * PT-INR [facility](Performed 06/26/2024) * LIPASE BLOOD(Performed 06/26/2024) * CBC W AUTO DIFFERENTIAL(Performed 06/26/2024) * BASIC METABOLIC PANEL (CALCIUM TOTAL)(Performed 06/26/2024) * AMYLASE BLOOD(Performed 06/26/2024) * ALCOHOL ETHYL BLOOD(Performed 06/26/2024) Results * (ABNORMAL) GLUCOSE - POINT OF CARE (07/15/2024 10:58 AM [facility]) Only the most recent of82 resultswithin the time period is included. Pathologist [facility] Glucose WB/POC 183(H) 70 - 99 mg/dL 07/15/2024 4:10 PM [facility] Specimen Type Arterial 07/15/2024 4:10 PM [facility] Blood BLOOD SPECIMEN / Unknown 07/15/2024 10:58 AM [facility] 07/15/2024 4:09 PM [facility] Edwin Sánchez MD LAB - POINT OF CARE ORDERABLES [facility] [address] [place] [id number], [facility] [phone] * (ABNORMAL) URINALYSIS REFLEX TO MICROSCOPIC NO CULTURE (07/15/2024 9:49 AM SN[facility]ER) Pathologist [facility] Color UA Yellow Straw, Yellow 07/15/2024 10:00 AM [facility] Clarity UA Cloudy(A) Clear 07/15/2024 10:00 AM [facility] Specific [place] UA 1.012 1.005 - 1.030 07/15/2024 10:00 AM [facility] pH UA 5.0 5.0 - 8.0 pH 07/15/2024 10:00 AM [facility] Protein UA Negative Negative 07/15/2024 10:00 AM [facility] Glucose UA Negative Negative 07/15/2024 10:00 AM [facility] Ketone UA Negative Negative 07/15/2024 10:00 AM [facility] Bilirubin UA Negative Negative 07/15/2024 10:00 AM [facility] Blood UA 2+(A) Negative 07/15/2024 10:00 AM [facility] Nitrite UA Negative Negative 07/15/2024 10:00 AM [facility] Leukocyte Esterase 3+(A) Negative 07/15/2024 10:00 AM [facility] Urobilinogen UA Negative Negative mg/dL 07/15/2024 10:00 AM [facility] RBC UA 11-20(A) None Seen, 0-2, 3-5 /HPF 07/15/2024 10:00 AM [facility] WBC UA >100(A) None Seen, 0-5 /HPF 07/15/2024 10:00 AM [facility] Bacteria UA 1+(A) None /HPF 07/15/2024 10:00 AM [facility] Squamous Epithelial Cells UA 6-10(A) None Seen, 0-2, 3-5 /HPF 07/15/2024 10:00 AM [facility] Transitional Epithelial Cells UA 0-2(A) None Seen /HPF 07/15/2024 10:00 AM [facility] Mucus UA 1+ /LPF 07/15/2024 10:00 AM [facility] Urine URINE SPECIMEN OBTAINED BY CLEAN CATCH PROCEDURE / Unknown 07/15/2024 9:49 AM [facility] 07/15/[facility]24 [facility] [facility] Edwin Sánchez MD LAB - URINALYSIS ORD ERABLES [facility] [address] [place] [address], [facility] [phone] * (ABNORMAL) CBC W/O DIFFERENTIAL (07/14/2024 7:18 PM [facility]) Only the most recent of18 resultswithin the time period is included. WBC 10.8(H) 4.0 - 10.7 x10E9/L 07/14/2024 7:54 PM [facility] RBC Count 3.20(L) 3.90 - 5.20 x10E12/L 07/14/2024 7:54 PM [facility] Hemoglobin 10.2(L) 11.9 - 15.8 g/dL 07/14/2024 7:54 PM [facility] Hematocrit 29.8(L) 34.8 - 46.1 % 07/14/2024 7:54 PM [facility] MCV 93.1 80.0 - 98.0 fL 07/14/2024 7:54 PM [facility] MCH 31.9 26.7 - 33.6 pg 07/14/2024 7:54 PM [facility] MCHC 34.2 31.7 - 36.3 g/dL 07/14/2024 7:54 PM [facility] RDW-CV 15.1(H) 11.3 - 14.8 % 07/14/2024 7:54 PM [facility] Platelet Count 203 150 - 420 x10E9/L 07/14/2024 7:54 PM [facility] MPV 9.9 7.8 - 11.4 fL 07/14/2024 7:54 PM [facility] Blood BLOOD SPECIMEN / Unknown Lab Venipuncture / Unknown 07/14/2024 7:18 PM [facility] 07/14/2024 7:44 PM [facility] Edwin Sánchez MD LAB - HEMATOLOGY ORD ERABLES [address] [address], [facility] [phone] * (ABNORMAL) BASIC METABOLIC PANEL (CALCIUM TOTAL) (07/14/2024 7:18 PM [facility]) Only the most recent of19 resultswithin the time period is included. BUN 20 7 - 26 mg/dL 07/14/2024 8:16 PM [facility] Creatinine 0.82 0.56 - 0.96 mg/dL 07/14/2024 8:16 PM [facility] Sodium 136 136 - 145 mmol/L 07/14/2024 8:16 PM [facility] Potassium 4.4 3.5 - 4.5 mmol/L 07/14/2024 8:16 PM [facility] Chloride 106 98 - 107 mmol/L 07/14/2024 8:16 PM [facility] CO2 21(L) 22 - 29 mmol/L 07/14/2024 8:16 PM [facility] Glucose 151(H) 70 - 99 mg/dL 07/14/2024 8:16 PM [facility] Calcium 7.9(L) 8.4 - 10.2 mg/dL 07/14/2024 8:16 PM [facility] Anion Gap 9 6 - 16 07/14/2024 8:16 PM [facility] BUN/Creatinine Ratio 24(H) 7 - 23 07/14/2024 8:16 PM [facility] Osmolality Calculated 288 275 - 295 mOsm/kg 07/14/2024 8:16 PM [facility] eGFR by CKD-EPI 70(L) >=90 mL/min/1.7 3 m2 07/14/2024 8:16 PM [facility] Blood BLOOD SPECIMEN / Unknown Lab Venipuncture / Unknown 07/14/2024 7:18 PM [facility] 07/14/2024 7:44 PM [facility] Edwin Sánchez MD LAB - CHEMISTRY LISA HARDING [facility] Organization Address City/State/ZIP Co de Phone Number [address] [address], [facility] [phone] * GASTROINTESTINAL PATHOGEN PANEL BY PCR (07/13/2024 2:47 PM [facility]) Campylobacter Not detected Not detected 07/13/2024 5:04 PM [facility] Plesiomonas shigelloides Not detected Not detected 07/13/2024 5:04 PM SN[facility] Salmonella Not detected Not detected 07/13/2024 5:04 PM SN[facility] Vibrio Not detected Not detected 07/13/2024 5:04 PM SN[facility] Vibrio cholerae Not detected Not detected 07/13/2024 5:04 PM SN[facility] Yersinia enterocolitica Not detected Not detected 07/13/2024 5:04 PM SN[facility] Enteroaggregative E coli (EAEC) Not detected Not detected 07/13/2024 5:04 PM SN[facility] Enteropathogenic E coli (EPEC) Not detected Not detected, N/A 07/13/2024 5:04 PM SN[facility] Enterotoxigenic E coli (ETEC) LT/ST Not detected Not detected 07/13/2024 5:04 PM SN[facility] Shiga-Like Toxin-Producing E coli (STEC) stx1/stx2 Not detected Not detected 07/13/2024 5:04 PM SN[facility] E coli 0157 N/A Not detected, N/A 07/13/2024 5:04 PM SN[facility] Shigella/Enteroinvas jana E coli Not detected Not detected 07/13/2024 5:04 PM SN[facility] Cryptosporidium Not detected Not detected 07/13/2024 5:04 PM SN[facility] Cyclospora cayetanensis Not detected Not detected 07/13/2024 5:04 PM SN[facility] Entamoeba histolytica Not detected Not detected 07/13/2024 5:04 PM SN[facility] Giardia lamblia Not detected Not detected 07/13/2024 5:04 PM SN[facility] Adenovirus F 40/41 Not detected Not detected 07/13/2024 5:04 PM SN[facility] Astrovirus Not detected Not detected 07/13/2024 5:04 PM SN[facility] Norovirus GI/GII Not detected Not detected 07/13/2024 5:04 PM SN[facility] Rotavirus A Not detected Not detected 07/13/2024 5:04 PM SN[facility] Sapovirus Not detected Not detected 07/13/2024 5:04 PM SN[facility] Stool STOOL SPECIMEN / Unknown Collection / Unknown 07/13/2024 2:47 PM [facility] 07/13/2024 2:56 PM [facility]ER Narrative [facility] - 07/13/2024 5:04 PM SNOW MAKER Test performed by [employer] RT-PCR. Edwin Sánchez MD LAB - MICROBIOLOGY O RDERABLES [facility] [address] [place], [place] [address], [facility] [phone] * XR Chest 1Vw Portable (07/09/2024 9:51 AM SNOW MAKER) Only the most recent of6 resultswithin the time period is included. Anatomical Region Laterality Modality Chest Digital Radiogra phy 07/10/2024 8:52 PM SNOW MAKER Impressions 07/10/2024 8:53 PM SN[employer] MAKER IMPRESSION: Lungs are clear. No focal consolidation, pleural effusion or pneumothorax. The cardiomediastinal silhouette is unchanged. Right rib fractures again seen. > Interpreting Provider: Terry Arthur MD on 07/10/2024 8:53 PM Narrative 07/10/2024 8:53 PM SNOW MAKER PROCEDURE: ??XR CHEST 1VW PORTABLE DATE/TIME OF [...] RDERABLES * PHOSPHORUS BLOOD (07/09/2024 3:02 AM SNOW MAKER) Only the most recent of12 resultswithin the time period is included. Phosphorus 3.2 2.9 - 5.1 mg/dL 07/09/2024 4:29 AM SNOW MAKER [facility] Blood BLOOD SPECIMEN / Unknown Lab Venipuncture / Unknown 07/09/2024 3:02 AM SNOW MAKER 07/09/2024 3:59 AM SNOW MAKER Wilder Cruz MD LAB - CHEMISTRY OR DERABLES Performing Organization Address City/[facility]/ZIP Co de Phone Number [address] [phone], [facility] [phone] * MAGNESIUM BLOOD (07/09/2024 3:02 AM SNOW MAKER) Only the most recent of12 resultswithin the time period is included. Magnesium 2.1 1.6 - 2.6 mg/dL 07/09/2024 4:29 AM SNOW MAKER [facility] Blood BLOOD SPECIMEN / Unknown Lab Venipuncture / Unknown 07/09/2024 3:02 AM SNOW MAKER 07/09/2024 3:59 AM SNOW MAKER Wilder Cruz MD LAB - CHEMISTRY OR DERABLES Performing Organization Address [facility] Co de Phone Number [address] [phone], [facility] [phone] * XR Abdomen Kub Portable (07/05/2024 1:02 AM SNOW MAKER) Only the most recent of2 resultswithin the time period is included. Anatomical Region Laterality Modality Abdomen Digital Radiogra phy 07/05/2024 5:33 AM SNOW MAKER Narrative 07/05/2024 2:44 PM SNOW MAKER PROCEDURE: ??XR ABDOMEN KUB PORTABLE DATE/TIME OF [...] hemidiaphragm. Report dictated by Gagan Sweeney MD (human resources vice president). Dao Calderon MD have personally reviewed and [...] hemidiaphragm. Report dictated by Gagan Sweeney MD (human resources vice president). Dao Calderon MD have personally reviewed and interpreted this examination/study. > Interpreting Provider: Dao Mustafa MD on 07/05/2024 2:44 PM Ibis Zamudio MD DIAGNOSTIC SPENCER GING ORDERABLES * TSH REFLEX FREE T4 (06/30/2024 3:36 AM SNOW MAKER) TSH 0.809 0.350 - 4.940 uIU/mL 06/30/2024 4:50 AM SNOW MAKER [facility] Blood BLOOD SPECIMEN / Unknown Lab Venipuncture / Unknown 06/30/2024 3:36 AM SNOW MAKER 06/30/2024 4:02 AM SNOW MAKER Khai Sotomayor BASKET BOTTOM MACHINE OPERATOR-ICU NURSE LAB - CHEMISTRY ORDERABLES [facility] [address] [place] [phone], [facility] [phone] * ECHO COMPLETE W CONTRAST W BUBBLE STUDY (06/29/2024 3:17 PM SNOW MAKER) Myocardial strain charge 2 unitless SSM CV FUJI PACS AV VTI 26.682 cm SSM CV FUJ I PACS RVIDd 2.461 cm SSM CV FUJ I PACS MV VTI 18.026 cm SSM CV FUJ I PACS LV A4C EF 61.733 % SSM CV FUJ I PACS TR pk harman 255.287 cm/s SSM CV FUJ I PACS LVOT VTI 16.143 cm SSM CV FUJ I PACS MV E' lateral harman 6.067 cm/s SSM CV FUJI PACS RV-rowland basal diam 3.588 cm SSM CV FUJI PACS MV A pk harman 72.843 cm/s SSM CV F UJI PACS LVIDd 3.825 cm SSM CV FUJ I PACS LV EDV A4C 96.869 ml SSM CV FU JI PACS AV mn grad 5.296 mmHg SSM CV FU JI PACS LV EDV A2C 80.137 ml SSM CV FU JI PACS MV mn grad 1.17 mmHg SSM CV FU JI PACS RVOT pk harman 66.705 cm/s SSM CV F UJI PACS LVPWd 0.988 cm SSM CV FUJ I PACS LV A2C EF 56.101 % SSM CV FUJ I PACS PV VTI 12.238 cm SSM CV FUJ I PACS IVC Diam Expiration 0.508 cm SSM CV FUJI PACS RVOT VTI 10.615 cm SSM CV FUJ I PACS AV pk harman 152.67 cm/s SSM CV FUJ I PACS Ascending aorta 3.425 cm SSM CV FUJI PACS TAPSE 2.022 cm SSM CV FUJ I PACS LVIDs 3.352 cm SSM CV FUJ I PACS LV biplane EF 58.727 % SSM CV FUJI PACS RVOT diam Doppler 1.792 cm SSM CV FUJI PACS PV pk harman 90.873 cm/s SSM CV FUJ I PACS LV ESV A4C 37.069 ml SSM CV FU JI PACS IVSd 2D 0.956 cm SSM CV FUJ I PACS MV E pk harman 66.575 cm/s SSM CV F UJI PACS LA size 2.49 cm SSM CV RADHA I PACS LV ESV A2C 35.179 ml SSM CV FU JI PACS RA area 16.436 cm? ? ? SSM CV FUJI PACS LVOT pk harman 90.256 cm/s SSM CV F UJI PACS LVOT diam 2.096 cm SSM CV RADHA I PACS Anatomical Region Laterality Modality Ultrasound 06/29/2024 3:19 PM SNOW MAKER Narrative 06/29/2024 3:42 PM SNOW MAKER Summary ??* The left ventricle is normal [...] effusion. Patient Info Name: ? Ashleigh ?? Bilderback Age: ? 84 years : ? 1940 Gender: ? Female Accession #: ? [id number] Ht: ? 68 in Wt: ? 180 lb BSA: ? 2.00 m2 HR: ? 75 bpm BP: ? 111 / ? 53 mmHg Exam Date: ? 06/29/2024 3:19 PM Patient Status: ? I/P Study Site: ? [facility] Primary Location: ? [facility] EStudy Info Technical Quality: ? Technically Difficult [...] Amount: ? 1.00 ml Administered By: ? Harinitatianaprice Huizar Reaction to Contrast: ? no Reason for Technically Difficult ??Study: ? poor patient cooperation, positional limitations Staff Referring Physician: ? Humberto Helton Ordering Provider: ? Humberto Helton Attending Physician: ? Humberto Helton Information Technology Manager: ? Luis Huizar Left Ventricle ??The left [...] ?12 % ? 27-45 LV EF (2D Teicholz) ? 27 % ? 54-74 LV Diastolic [...] 3:19 PM Patient Status: I/P Study Site: [facility] Primary Location: [facility] EStudy Info Technical Quality: Technically Difficult Exam Type: [...] cooperation, positional limitations Staff Referring Physician: Humberto Hetlon Ordering Provider: Humberto Helton Attending Physician: Humberto Helton Information Technology Manager: Luis Huizar Left Ventricle The left ventricle [...] * CARDIAC EKG ORDER (06/28/2024 8:04 AM SNOW MAKER) Narrative 06/28/2024 8:04 AM SNOW MAKER Ordered by an unspecified provider. Scanned Document CARDIAC SERVICES ORD ERABLES * (ABNORMAL) HEMOGLOBIN A1C (06/27/2024 1:23 AM SNOW MAKER) Hemoglobin A1c 5.7(H) <=5.6 % 06/28/2024 8:46 AM SNOW MAKER [facility] Estimated Average Glucose 117 mg/dL 06/28/2024 8:46 AM [facility] Comment: HbA1c Interpretation: Normal : < 5.7% Pre-diabetes: 5.7-6.4% Diabetes: Equal to or greater than 6.5% Test results diagnostic of diabetes should be repeated for confirmation. Treatment target values recommended by ADA and other clinical organizations should be used to evaluate metabolic control in patients. Reference: [place] [employer], Standards of Care in Diabetes -2020 In patients 70 years and older consider HbA1c target range of 7.0-7.5% (Reference: Pranay Garber, et al. JAMDA. 2012) The Sebia assay for the measurement of HbA1c is a National Glycohemoglobin Standardization Program (NGSP) certified method. Blood BLOOD SPECIMEN / Unknown Line Draw / Unknown 06/27/2024 1:23 AM SNOW MAKER 06/27/2024 3:39 PM SNOW MAKER Humberto Helton MD LAB - CHEMISTRY [place] [facility] Organization Address City/State/ZIP Co de Phone Number [address] [address], [facility] [phone] * LIPID PROFILE (06/27/2024 1:23 AM SNOW MAKER) Cholesterol Total 156 <200 mg/dL 06/27/2024 2:01 AM [facility] HDL 51 >40 mg/dL 06/27/2024 2:01 AM [facility] Comment: ATP III Classification of HDL Cholesterol: ? <40 mg/dL: ??Considered a major risk factor. ? >60 mg/dL: ??Considered a negative risk factor. ? LDL Calculated 85 <100 mg/dL 06/27/2024 2:01 AM [facility] Comment: ATP III Classification of LDL Cholesterol: ?<100 mg/dL: ??Optimal ? 100 - 129 mg/dL: ??Near Optimal/Above Optimal ? 130 - 159 mg/dL: ??Borderline High ? 160 - 189 mg/dL: ??High ?>190 mg/dL: ??Very High ? Triglycerides 99 <150 mg/dL 06/27/2024 2:01 AM [facility] Comment: ATP III Classification of Triglycerides: ?<150 mg/dL: ??Normal ? 150 - 199 mg/dL: ??Borderline High ? 200 - 400 mg/dL: ??High ?>500 mg/dL: ??Very High Blood BLOOD SPECIMEN / Unknown Venipuncture / Unknown 06/27/2024 1:23 AM SNOW MAKER 06/27/2024 1:[address] [facility] Humberto Helton MD LAB - CHEMISTRY [place] Performing Organization Address [facility]/State/ZIP Co de Phone Number [address] [address], [facility] [phone] * TROPONIN-I HIGH SENSITIVE REFLEX 1HOUR (06/26/2024 11:[address] [facility]) Only the most recent of3 resultswithin the time period is included. Troponin I High Sensitive 8 <=14 ng/L 06/26/2024 11:42 PM [facility] Delta Troponin I HS 06/26/2024 11:42 PM SNOW MAKER [facility] Comment:Delta value intentio argenis not calculated. Baseline to 1 hour specimen collection interval exceeded. Blood BLOOD SPECIMEN / Unknown Venipuncture / Unknown 06/26/2024 11:05 PM SNOW MAKER 06/26/2024 11:22 PM SNOW MAKER Humberto Helton MD LAB - CHEMISTRY [place] [facility] [address] [place] [address], [facility] [phone] * MRI Brain Wo Contrast (06/26/2024 8:50 PM SNOW MAKER) Anatomical Region Laterality Modality Head Magnetic Resonan ce 06/27/2024 7:58 AM SNOW MAKER Impressions 06/27/2024 10:12 AM SNOW MAKER IMPRESSION: Punctate focus of restricted diffusion within [...] and verification. This study was dictated by human resources vice president Panda Lester MD and reviewed and edited by the attending. I, Jeanie Duong MD have personally reviewed and interpreted this examination/study. > Interpreting Provider: Jeanie Duong MD on 06/27/2024 10:12 AM Narrative 06/27/2024 10:12 AM SNOW MAKER PROCEDURE: ??MRI BRAIN WO CONTRAST, DATE/TIME OF EXAM: ??06/26/2024 8:52 PM, LOCATION ??[facility] INDICATION: R41.82: Altered mental status, unspecified altered [...] CONTRAST, DATE/TIME OF EXAM: 06/26/2024 8:52PM, LOCATION [facility] INDICATION: R41.82: Altered mental status, unspecified altered [...] and verification. This study was dictated by human resources vice president Panda Lester MD and reviewed and edited by the attending. I, Jeanie Duong MD have personally reviewed and interpreted this examination/study. > Interpreting Provider: Jeanie Duong MD on 06/27/2024 10:12 AM Calderon Sim MD MR ORDERABLES * TROPONIN-I HIGH SENSITIVE BASELINE + 1HR (06/26/2024 5:54 PM SNOW MAKER) Only the most recent of3 resultswithin the time period is included. Troponin I High Sensitive 8 <=14 ng/L 06/26/2024 7:08 PM SNOW MAKER [facility] Blood BLOOD SPECIMEN / Unknown Venipuncture / Unknown 06/26/2024 5:54 PM SNOW MAKER 06/26/2024 6:35 PM SNOW MAKER Humberto Helton MD LAB - CHEMISTRY [place] [facility] [address] [place] [phone], [facility] [phone] * (ABNORMAL) URINE MICROSCOPIC ONLY REFLEX TO CULTURE (06/26/2024 5:40 PM SNOW MAKER) Reflex Status Culture to follow 06/26/2024 6:10 PM [facility] RBC UA 11-20(A) None Seen, 0-2, 3-5 /HPF 06/26/2024 6:10 PM [facility] WBC UA 51-100(A) None Seen, 0-5 /HPF 06/26/2024 6:10 PM [facility] Bacteria UA 3+(A) None /HPF 06/26/2024 6:10 PM [facility] Squamous Epithelial Cells UA 0-2 None Seen, 0-2, 3-5 /HPF 06/26/2024 6:10 PM [facility] Urine URINE SPECIMEN OBTAINED BY CLEAN CATCH PROCEDURE / Unknown Collection / Unknown 06/26/2024 5:40 PM SNOW MAKER 06/26/2024 5:43 PM SNOW MAKER [facility] - 06/26/2024 6:10 PM SNOW MAKER Calderon Sim MD LAB - URINALYSIS ORD ERABLES [facility] [address] [place] [phone], [facility] [phone] * (ABNORMAL) URINALYSIS REFLEX MICROSCOPIC REFLEX CULTURE (06/26/2024 5:40 PM SNOW MAKER) Color UA Yellow Straw, Yellow 06/26/2024 6:09 PM [facility] Clarity UA Slt Cloudy(A) Clear 06/26/2024 6:09 PM [facility] Specific [place] UA 1.039(H) 1.005 - 1.030 06/26/2024 6:09 PM [facility] pH UA 6.0 5.0 - 8.0 pH 06/26/2024 6:09 PM [facility] Protein UA 1+(A) Negative 06/26/2024 6:09 PM [facility] Glucose UA Negative Negative 06/26/2024 6:09 PM [facility] Ketone UA Trace(A) Negative 06/26/2024 6:09 PM [facility] Bilirubin UA Negative Negative 06/26/2024 6:09 PM [facility] Blood UA 2+(A) Negative 06/26/2024 6:09 PM [facility] Nitrite UA Positive(A) Negative 06/26/2024 6:09 PM [facility] Leukocyte Esterase 3+(A) Negative 06/26/2024 6:09 PM [facility] Urobilinogen UA Negative Negative mg/dL 06/26/2024 6:09 PM [facility] Comment UA Microscopic to follow. 06/26/2024 6:09 PM [facility] Urine URINE SPECIMEN OBTAINED BY CLEAN CATCH PROCEDURE / Unknown Collection / Unknown 06/26/2024 5:40 PM SNOW MAKER 06/26/2024 5:43 PM SNOW MAKER [facility] - 06/26/2024 6:09 PM SNOW MAKER Calderon Sim MD LAB - URINALYSIS ORD ERABLES Performing Organization Address City/[facility]/ZIP Co de Phone Number [facility] [address] [place] [phone], [facility] [phone] * CULTURE URINE (06/26/2024 5:40 PM SNOW MAKER) Culture Urine No growth (<100 CFU/mL) EPI 06/27/2024 11:[address] [facility] Urine URINE SPECIMEN OBTAINED BY CLEAN CATCH PROCEDURE / Unknown Collection / Unknown 06/26/2024 5:40 PM SNOW MAKER 06/26/2024 6:10 PM SNOW MAKER Calderon Sim MD LAB - MICROBIOLOGY O RDERABLES [facility] [address] [place] [address], [facility] [phone] * CULTURE BLOOD (06/26/2024 4:56 PM SNOW MAKER) Only the most recent of2 resultswithin the time period is included. Culture No growth day 5 EPI 07/01/2024 9:[address] [facility] Blood PERIPHERAL BLOOD / Unknown Lab Venipuncture / Unknown 06/26/2024 4:56 PM SNOW MAKER 06/26/2024 4:58 PM SNOW MAKER Jamison Nevarez DO LAB - MICROBIOLOGY O RDERABLES [facility] [address] [place] [address], [facility] [phone] * LACTIC ACID BLOOD REFLEX TO REPEAT (06/26/2024 4:36 PM SNOW MAKER) Lactic Acid-Stat 1.3 <=2.0 mmol/L 06/26/2024 5:14 PM SNOW MAKER [facility] Blood BLOOD SPECIMEN / Unknown Venipuncture / Unknown 06/26/2024 4:36 PM SNOW MAKER 06/26/2024 4:45 PM SNOW MAKER Jamison Nevarez DO LAB - CHEMISTRY ORDE RABLES [address] [address], [facility] [phone] * URINE DRUG SCREEN IMMUNOASSAY (06/26/2024 2:39 PM SNOW MAKER) Amphetamines Screen Urine Negative Negative: < 1000 ng/mL 06/26/2024 3:06 PM [facility] Barbiturates Screen Urine Negative Negative: < 200 ng/mL 06/26/2024 3:06 PM [facility] Benzodiazepine Screen Urine Negative Negative: < 200 ng/mL 06/26/2024 3:06 PM [facility] Opiates Urine Negative Negative: < 300 ng/mL 06/26/2024 3:06 PM [facility] Cocaine Metabolites Urine Negative Negative: < 300 ng/mL 06/26/2024 3:06 PM [facility] Phencyclidine Screen Urine Negative Negative: < 25 ng/ml 06/26/2024 3:06 PM [facility] Cannabinoids Screen Urine Negative Negative: <50 ng/mL 06/26/2024 3:06 PM [facility] Methadone Screen Urine Negative Negative: < 300 ng/mL 06/26/2024 3:06 PM [facility] Fentanyl Screen Urine Negative Negative: <1.5 ng/mL 06/26/2024 3:06 PM SNOW MAKER [facility] Urine URINE / Unknown Collection / Unknown 06/26/2024 2:39 PM SNOW MAKER 06/26/2024 2:43 PM SNOW MAKER Narrative [facility] - 06/26/2024 3:06 PM SNOW MAKER The Urine Toxicology Screening Panel does not screen for Propoxyphene, Meprobamate, Carisoprodol, Trazodone, [id number] medications and/or volatiles (Acetone, Isopropanol, Methanol or Ethylene Glycol). Ethanol, Salicylate, Acetaminophen, Tricyclic Antidepressants and several therapeutic drugs may be individually assayed in serum or plasma specimen. Toxicology testing by the [facility] is an aid to medical diagnosis and treatment of patients. No documented chain of custody was maintained. Results are intended to be used for clinical purposes only. ? Calderon Sim MD LAB - URINE CHEMISTR Y ORDERABLES Performing Organization Address [facility] Co de Phone Number [facility] [address] [place] [phone], [facility] [phone] * BLOOD TYPE VERIFICATION (06/26/2024 1:39 PM SNOW MAKER) ABO Rh AB POS 06/26/2024 2:23 PM SNOW MAKER [facility] LAB Blood Bank BLOOD SPECIMEN / Unknown Venipuncture / Unknown 06/26/2024 1:39 PM SNOW MAKER 06/26/2024 1:51 PM SNOW MAKER Calderon Sim MD LAB - BLOOD BANK ORD ERABLES [facility] [address] [place] [address], [facility] [phone] * CT Angio Brain Neck Stroke (06/26/2024 12:50 PM SNOW MAKER) Anatomical Region Laterality Modality Head Computed Tomogra phy 06/26/2024 12:5 7 PM SNOW MAKER Impressions 06/26/2024 7:21 PM SNOW MAKER IMPRESSION: 1.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 > Interpreting Provider: Jeanie Duong MD on 06/26/2024 7:21 PM Narrative 06/26/2024 7:21 PM SNOW MAKER PROCEDURE: ??CT ANGIO BRAIN NECK STROKE, DATE/TIME OF EXAM: ??06/26/2024 12:53 PM, LOCATION ??[facility] INDICATION: R41.82: Altered mental status, unspecified altered [...] left posterior cerebral artery with patent distal ENGINEER TECHNICIAN (series 5 images [phone]). There is atherosclerotic [...] ANGIO BRAIN NECK STROKE, DATE/TIME OF EXAM: :53 PM, LOCATION [facility] INDICATION: R41.82: Altered mental status, unspecified altered [...] left posterior cerebral artery with patent distal ENGINEER TECHNICIAN (series 5 images [phone]). There is atherosclerotic [...] report is dictated by Price Bates MD (human resources vice president) Jeanie Calderon MD have personally reviewed and interpreted this examination/study. > Interpreting Provider: Jeanie Duong MD on 06/26/2024 7:21 PM Humberto Helton MD CT ORDERABLES * CT CHEST ABDOMEN PELVIS W CONT - Abdomen-pelvis trauma, blunt or penetrating (06/26/2024 12:50 PM SNOW MAKER) Anatomical Region Laterality Modality Chest, Abdomen, Pelvis Computed Tomography 06/26/2024 12:2 4 PM SNOW MAKER Impressions 06/26/2024 1:12 PM SNOW MAKER Impression: 1.Mildly displaced mid sternal body fracture. [...] characterization. > Dictated by Ruben Rodriguez DO (human resources vice president). ITerry MD have personally reviewed and interpreted this examination/study. > Interpreting Provider: Terry Arthur MD on 06/26/2024 1:12 PM Narrative 06/26/2024 1:12 PM SNOW MAKER PROCEDURE: ??CT CHEST ABDOMEN PELVIS W CONT, DATE/TIME OF EXAM: ??06/26/2024 12:53 PM, LOCATION ??[facility] INDICATION: Trauma COMPARISON: None. TECHNIQUE: CT of [...] CONT, DATE/TIME OF EXAM:06/26/2024 12:53 PM, LOCATION [facility] INDICATION: Trauma COMPARISON: None. TECHNIQUE: CT of [...] characterization. > Dictated by Ruben Rodriguez DO (human resources vice president). Terry Calderon MD have personally reviewed and interpreted this examination/study. > Interpreting Provider: Terry Arthur MD on 06/26/2024 1:12 PM Calderon Sim MD CT ORDERABLES * CT LUMBAR SPINE WO CONTRAST - T/L-spine trauma, Spine fracture (06/26/2024 12:50 PM SNOW MAKER) Anatomical Region Laterality Modality Spine Computed Tomogra phy 06/26/2024 12:4 9 PM SNOW MAKER Impressions 06/26/2024 7:09 PM SNOW MAKER IMPRESSION: 1.No acute facial bone fractures identified. 2.No evidence of acute fracture in the cervical, thoracic, or lumbar spine. 3.Acute, nondisplaced fracture of the posterior left first rib. 4.Please refer to concurrent body CT for further findings. The report is dictated by Price Bates MD (human resources vice president) Jeanie Calderon MD have personally reviewed and interpreted this examination/study. > Interpreting Provider: Jeanie Duong MD on 06/26/2024 7:09 PM Narrative 06/26/2024 7:09 PM SNOW MAKER PROCEDURE: ??CT THORACIC SPINE WO CONTRAST, CT LUMBAR SPINE WO CONTRAST, CT FACIAL BONES WO CONTRAST, CT CERVICAL SPINE WO CONTRAST, DATE/TIME OF EXAM: 06/26/2024 12:53 PM, LOCATION ??[facility] INDICATION: Trauma ADDITIONAL CLINICAL INFORMATION: Ordering Provider [...] same day for additional details. Procedure Note [place]agunta, Jeanie, MD - 06/26/2024 PROCEDURE: CT THORACIC SPINE WO CONTRAST, CT LUMBAR SPINE WO CONTRAST,CT FACIAL BONES WO CONTRAST, CT CERVICAL SPINE WO CONTRAST, DATE/TIME OFEXAM: 06/26/2024 12:53 PM, LOCATION [facility] INDICATION: Trauma ADDITIONAL CLINICAL INFORMATION: Ordering Provider [...] report is dictated by Price Bates MD (human resources vice president) I, Jeanie Duong MD have personally reviewed and interpreted this examination/study. > Interpreting Provider: Jeanie Duong MD on 06/26/2024 7:09 PM Calderon Sim MD CT ORDERABLES * CT THORACIC SPINE WO CONTRAST - T/L-spine trauma, spine fracture (06/26/2024 12:50 PM SNOW MAKER) Anatomical Region Laterality Modality Spine Computed Tomogra phy 06/26/2024 12:4 9 PM SNOW MAKER Impressions 06/26/2024 7:09 PM SNOW MAKER IMPRESSION: 1.No acute facial bone fractures identified. 2.No evidence of acute fracture in the cervical, thoracic, or lumbar spine. 3.Acute, nondisplaced fracture of the posterior left first rib. 4.Please refer to concurrent body CT for further findings. The report is dictated by Price Bates MD (human resources vice president) I, Jeanie Duong MD have personally reviewed and interpreted this examination/study. > Interpreting Provider: Jeanie Duong MD on 06/26/2024 7:09 PM Narrative 06/26/2024 7:09 PM SNOW MAKER PROCEDURE: ??CT THORACIC SPINE WO CONTRAST, CT LUMBAR SPINE WO CONTRAST, CT FACIAL BONES WO CONTRAST, CT CERVICAL SPINE WO CONTRAST, DATE/TIME OF EXAM: 06/26/2024 12:53 PM, LOCATION ??[facility] INDICATION: Trauma ADDITIONAL CLINICAL INFORMATION: Ordering Provider [...] CONTRAST, DATE/TIME OFEXAM: 06/26/2024 12:53 PM, LOCATION [facility] INDICATION: Trauma ADDITIONAL CLINICAL INFORMATION: Ordering Provider [...] report is dictated by Price Bates MD (human resources vice president) Jeanie Calderon MD have personally reviewed and interpreted this examination/study. > Interpreting Provider: Jeanie Duong MD on 06/26/2024 7:09 PM Calderon Sim MD CT ORDERABLES * CT CERVICAL SPINE WO CONTRAST - C-Spine Trauma, Spine fracture (06/26/2024 12:50 PM SNOW MAKER) Anatomical Region Laterality Modality Spine Computed Tomogra phy 06/26/2024 12:4 9 PM SNOW MAKER Impressions 06/26/2024 7:09 PM SNOW MAKER IMPRESSION: 1.No acute facial bone fractures identified. 2.No evidence of acute fracture in the cervical, thoracic, or lumbar spine. 3.Acute, nondisplaced fracture of the posterior left first rib. 4.Please refer to concurrent body CT for further findings. The report is dictated by Price Bates MD (human resources vice president) Jeanie Calderon MD have personally reviewed and interpreted this examination/study. > Interpreting Provider: Jeanie Duong MD on 06/26/2024 7:09 PM Narrative 06/26/2024 7:09 PM SNOW MAKER PROCEDURE: ??CT THORACIC SPINE WO CONTRAST, CT LUMBAR SPINE WO CONTRAST, CT FACIAL BONES WO CONTRAST, CT CERVICAL SPINE WO CONTRAST, DATE/TIME OF EXAM: 06/26/2024 12:53 PM, LOCATION ??[facility] INDICATION: Trauma ADDITIONAL CLINICAL INFORMATION: Ordering Provider [...] CONTRAST, DATE/TIME OFEXAM: 06/26/2024 12:53 PM, LOCATION [facility] INDICATION: Trauma ADDITIONAL CLINICAL INFORMATION: Ordering Provider [...] findings. The report is dictated by Price Baets MD (human resources vice president) I, Jeanie Duong MD have personally reviewed and interpreted this examination/study. > Interpreting Provider: Jeanie Duong MD on 06/26/2024 7:09 PM Calderon Sim MD CT ORDERABLES * CT FACIAL BONES WO CONTRAST - Facial trauma, fx suspected, blunt (06/26/2024 12:50 PM SNOW MAKER) Anatomical Region Laterality Modality Head Computed Tomogra phy 06/26/2024 12:4 9 PM SNOW MAKER Impressions 06/26/2024 7:09 PM SNOW MAKER IMPRESSION: 1.No acute facial bone fractures identified. 2.No evidence of acute fracture in the cervical, thoracic, or lumbar spine. 3.Acute, nondisplaced fracture of the posterior left first rib. 4.Please refer to concurrent body CT for further findings. The report is dictated by Price Bates MD (human resources vice president) I, Jeanie Duong MD have personally reviewed and interpreted this examination/study. > Interpreting Provider: Jeanie Duong MD on 06/26/2024 7:09 PM Narrative 06/26/2024 7:09 PM SNOW MAKER PROCEDURE: ??CT THORACIC SPINE WO CONTRAST, CT LUMBAR SPINE WO CONTRAST, CT FACIAL BONES WO CONTRAST, CT CERVICAL SPINE WO CONTRAST, DATE/TIME OF EXAM: 06/26/2024 12:53 PM, LOCATION ??[facility] INDICATION: Trauma ADDITIONAL CLINICAL INFORMATION: Ordering Provider [...] CONTRAST, DATE/TIME OFEXAM: 06/26/2024 12:53 PM, LOCATION [facility] INDICATION: Trauma ADDITIONAL CLINICAL INFORMATION: Ordering Provider [...] report is dictated by Price Bates MD (human resources vice president) IJeanie MD have personally reviewed and interpreted this examination/study. > Interpreting Provider: Jeanie Duong MD on 06/26/2024 7:09 PM Calderon Sim MD CT ORDERABLES * CT Brain Stroke (06/26/2024 12:50 PM SNOW MAKER) Anatomical Region Laterality Modality Head Computed Tomogra phy 06/26/2024 12:0 8 PM SNOW MAKER Impressions 06/26/2024 12:19 PM SNOW MAKER IMPRESSION: No acute intracranial hemorrhage or other acute abnormality by CT. Please note that MRI is more sensitive for evaluation of small acute ischemic infarcts. These findings were discussed with patient's care provider, , by on 06/26/2024 12:13 PM with read back verification. > Interpreting Provider: Jeanie Duong MD on 06/26/2024 12:19 PM Narrative 06/26/2024 12:19 PM SNOW MAKER PROCEDURE: ??CT BRAIN STROKE, DATE/TIME OF EXAM: ??06/26/2024 11:58 AM, LOCATION ??[facility] INDICATION: R41.82: Altered mental status, unspecified altered [...] DATE/TIME OF EXAM: 06/26/2024 11:58 AM, LOCATION [facility] INDICATION: R41.82: Altered mental status, unspecified altered [...] ORDERABLES * EKG 12-LEAD (06/26/2024 12:30 PM SNOW MAKER) Ventricular Rate 94 BPM [facility] MUSE Atrial Rate 88 BPM [facility] MUSE QRS Duration ms 90 ms [facility] MUSE Q-T Interval ms 388 ms [facility] MUSE QTC Calculation (Bezet) 485 ms [facility] MUSE Calculated R [place] -33 degrees [facility] MUSE Calculated T [place] 13 degrees [facility] MUSE Interpretation EKG UNDETERMINED RHYTHM ??- Artifact makes it difficult to determine rhythm LEFT AXIS DEVIATION MODERATE VOLTAGE CRITERIA FOR LVH, MAY BE NORMAL VARIANT ( R in aVL , Michael product ) INFERIOR INFARCT , AGE UNDETERMINED CANNOT RULE OUT ANTERIOR INFARCT , AGE UNDETERMINED ABNORMAL ECG NO PREVIOUS ECGS AVAILABLE Confirmed by TRENT NESBITT DO ([id number]) on 07/02/2024 4:44:56 PM [facility] MUSE 06/26/2024 12:3 0 PM SNOW MAKER 07/02/2024 4:44 PM SNOW MAKER Calderon Sim MD ECG ORDERABLES Performing Organization Address [facility] Co de Phone Number [facility] MUSE * (ABNORMAL) PTT [facility] (06/26/2024 12:25 PM SNOW MAKER) Pathologist [facility] APTT 21.0(L) 23.0 - 38.4 Seconds 06/26/2024 12:56 PM SNOW MAKER [facility]OR[facility] Comment:Suggested therapeuti c range for full dose I.V. unfractionated heparin therapy for venous thromboembolism is 71 to 109 seconds. Blood BLOOD SPECIMEN / Unknown Venipuncture / Unknown 06/26/2024 12:25 PM SNOW MAKER 06/26/2024 12:31 PM SNOW MAKER Calderon Sim MD LAB - COAGULATION OR DERABLES [facility] [address] [place] [address], [place] [phone] * PT-INR [facility] (06/26/2024 12:25 PM SNOW MAKER) Pathologist [facility] PT 12.7 12.1 - 14.8 Seconds 06/26/2024 12:56 PM SNOW MAKER [facility] INR 1.0 See Comment 06/26/2024 12:56 PM SNOW MAKER [facility] Comment:The suggested therap eutic range for standard coumadin (warfarin) therapy is an INR of 2.0-3.0. For high-risk patients (Mechanical Mitral Valve Prosthesis, etc.), the suggested prophylactic therapeutic range is an INR of 2.5-3.5. Blood BLOOD SPECIMEN / Unknown Venipuncture / Unknown 06/26/2024 12:25 PM SNOW MAKER 06/26/2024 12:31 PM SNOW MAKER Calderon Sim MD LAB - COAGULATION OR DERABLES [address] [address], [facility] [phone] * TYPE + SCREEN PANEL (06/26/2024 12:25 PM SNOW MAKER) [facility] Antibody Screen NEG 06/26/2024 1:13 PM SNOW MAKER [facility] BLOOD BANK LAB ABO Rh AB POS 06/26/2024 1:13 PM SNOW MAKER [facility] BLOOD BANK LAB Blood Bank BLOOD SPECIMEN / Unknown Venipuncture / Unknown 06/26/2024 12:25 PM SNOW MAKER 06/26/2024 12:30 PM SNOW MAKER Calderon Sim MD LAB - BLOOD BANK ORD ERABLES [facility] BLOOD BANK LAB [address] [place] [address], [place] [phone] * (ABNORMAL) CBC W AUTO DIFFERENTIAL (06/26/2024 12:25 PM SNOW MAKER) [facility] WBC 12.0(H) 4.0 - 10.7 x10E9/L 06/26/2024 12:39 PM [facility] RBC Count 4.66 3.90 - 5.20 x10E12/L 06/26/2024 12:39 PM [facility] Hemoglobin 14.3 11.9 - 15.8 g/dL 06/26/2024 12:39 PM [facility] Hematocrit 40.3 34.8 - 46.1 % 06/26/2024 12:39 PM [facility] MCV 86.5 80.0 - 98.0 fL 06/26/2024 12:39 PM [facility] MCH 30.7 26.7 - 33.6 pg 06/26/2024 12:39 PM [facility] MCHC 35.5 31.7 - 36.3 g/dL 06/26/2024 12:39 PM [facility] RDW-CV 12.9 11.3 - 14.8 % 06/26/2024 12:39 PM [facility] Platelet Count 174 150 - 420 x10E9/L 06/26/2024 12:39 PM [facility] MPV 10.0 7.8 - 11.4 fL 06/26/2024 12:39 PM [facility] Neutrophil % 73.6 41.0 - 74.0 % 06/26/2024 12:39 PM [facility] Lymphocyte % 18.0 17.0 - 47.0 % 06/26/2024 12:39 PM [facility] Monocyte % 7.0 3.0 - 11.0 % 06/26/2024 12:39 PM [facility] Eosinophil % 0.5 0.0 - 7.0 % 06/26/2024 12:39 PM [facility] Basophil % 0.3 0.0 - 1.6 % 06/26/2024 12:39 PM [facility] Immature Granulocytes % 0.6 0.0 - 1.0 % 06/26/2024 12:39 PM [facility] Neutrophil Absolute 8.84(H) 1.60 - 7.50 x10E9/L 06/26/2024 12:39 PM [facility] Lymphocyte Absolute 2.16 1.00 - 4.40 x10E9/L 06/26/2024 12:39 PM [facility] Monocyte Absolute 0.84 0.15 - 1.00 x10E9/L 06/26/2024 12:39 PM SNOW MAKER [facility] Eosinophil Absolute 0.06 0.00 - 0.60 x10E9/L 06/26/2024 12:39 PM SNOW MAKER [facility] Basophil Absolute 0.03 0.00 - 0.13 x10E9/L 06/26/2024 12:39 PM SNOW MAKER [facility] Blood BLOOD SPECIMEN / Unknown Venipuncture / Unknown 06/26/2024 12:25 PM SNOW MAKER 06/26/2024 12:31 PM SNOW MAKER Calderon Sim MD LAB - HEMATOLOGY ORD ERABLES [facility] [address] [place] [address], [place] [phone] * LIPASE BLOOD (06/26/2024 12:25 PM SNOW MAKER) Lipase 24 8 - 78 U/L 06/26/2024 1:04 PM SNOW MAKER [facility] Blood BLOOD SPECIMEN / Unknown Venipuncture / Unknown 06/26/2024 12:25 PM SNOW MAKER 06/26/2024 12:31 PM SNOW MAKER Narrative [facility] - 06/26/2024 1:04 PM SNOW MAKER Lipase results from the Schumacher Alinity analyzer may not be comparable with other methodologies. Calderon Sim MD LAB - CHEMISTRY ORDE MEHDI [facility] [address] [place] [address], [place] [phone] * AMYLASE BLOOD (06/26/2024 12:25 PM SNOW MAKER) Amylase 66 25 - 125 U/L 06/26/2024 1:04 PM SNOW MAKER [facility] Blood BLOOD SPECIMEN / Unknown Venipuncture / Unknown 06/26/2024 12:25 PM SNOW MAKER 06/26/2024 12:31 PM SNOW MAKER Calderon Sim MD LAB - CHEMISTRY LISA HARDING Performing Organization Address [facility]/ZIP Co de Phone Number [facility] [address] [place] [address], [facility] [phone] * ALCOHOL ETHYL BLOOD (06/26/2024 12:25 PM SNOW MAKER) Ethanol (mg/dL) <10 <10 mg/dL 1:04 PM SNOW MAKER [facility] Ethanol Calculated (g/dL) <0.010 <=0.010 g/dL 06/26/2024 1:04 PM SNOW MAKER [facility] Blood BLOOD SPECIMEN / Unknown Venipuncture / Unknown 06/26/2024 12:25 PM SNOW MAKER 06/26/2024 12:31 PM SNOW MAKER Narrative [facility] - 06/26/2024 1:04 PM SNOW MAKER Ethanol Interp <10: None Detected. Depression of STOPBOARD ASSEMBLER: >100 mg/dl Potentially Critical: >250 mg/dl Potentially [...] - CHEMISTRY LISA HARDING Performing Organization Address [facility]/ZIP Co de Phone Number [facility] [address] [place] [address], [facility] [phone] Care Teams Duster Tender Relationship Specialty Start Date End Date Geoff Clement MD [address] [place] [address] PCP - General Family Medicine 06/26/24
--- OUTSIDE RECORDS SUMMARY | 2024-08-19 08:42 | XMS_ITS | Clinical Summary ---
Author Organization [facility] Address [address] [facility] [facility] [place] [address] Care Team Providers Care Application Support Analyst Name Role Phone Geoff Clement MD Primary Care Provider [phone] Source Comments [facility],non-owned Affiliates and Associated Physician Practices is amultiple site organization consisting of ambulatory clinics and hospital sitesin [place], [place], [place] and [place]. This disclosure is being madepursuant to the Care Everywhere program and may not contain all information available regarding this patient. Last updated 18.[facility] Allergies No known active allergies Medications * [...] ribs of right side, initial encounter 06/26/2024 Encounters Date Type Department Care Team Description 06/26/2024 11:48 AM OIL REFINER - 07/15/2024 2:[address] [facility] Hospital Encounter [facility] [address] [place] [id number] Calderon Sim MD Bisesi, Dominic R, DO Edgell, Randall C, MD Behr, MD Leander Rausch, MD Michele Emerson, MD Amelia Glass Momina, MD Chinnery, MD Edwin Neurology Discharge Disposition: Rehab:Inpatient 06/26/2024 Travel from Last 3 Months Social History Tobacco Use Types Packs/Day Years [...] Recorded Patient Health Questionnaire-2 Score 0 07/07/2024 [facility] - Occupational Stress Questionnaire Answer Date Recorded [...] time in the past 12 [facility], were you homeless or living in a detention (including now)? No 07/15/2024 Sex and Gender Information Value Date Recorded Sex Assigned at Not on file Gender Identity Not on file Sexual Orientation Not on file Last Filed Vital Signs Vital Sign Reading Time Taken Comments Blood Pressure 103/67 07/15/2024 9:15 AM OIL REFINER Pulse 80 07/15/2024 9:15 AM OIL REFINER Temperature 36.9 ??C (98.5 ??F) 07/15/2024 9:15 AM CS T Respiratory Rate 18 07/15/2024 9:15 AM OIL REFINER Oxygen Saturation 96% 07/15/2024 9:15 AM OIL REFINER Inhaled Oxygen Concentration - - Weight 81.6 kg (180 lb) 06/30/2024 9:03 AM OIL REFINER Height 172.7 cm (5' 7.99 ) 06/30/2024 9:03 AM CS T Body Mass Index 27.38 06/30/2024 9:03 AM OIL REFINER Plan of Treatment Upcoming Encounters Date Type Department Care Team (Late st Contact Info) Description 12/13/2024 8:00 AM CDT Office Visit [facility] - Neurology [address] [facility] [place] [address] Tammy Alatorre PA-C [address] [place] [address] Health Maintenance Due Date Last Done Comments BONE DENSITY TESTING 1939 DTAP/TDAP/TD VACCINES (1 - Tdap) 1958 PNEUMOCOCCAL VACCINE 50+ (1 of 2 - PCV) 1958 ZOSTER VACCINE (1 of 2) 1989 Respiratory Syncytial Virus (RSV) Vaccine Pt: or over 60 yrs (1 - 1-dose 75+ series) 2014 COVID-19 VACCINE ( - 2023-2 5 season) 2024 INFLUENZA VACCINE (#1) 2024 DIABETES RETINOPATHY SCREENING 06/27/2024 DIABETES-FOOT EXAM WITH MONOFILAMENT 06/27/2024 DEPRESSION SCREENING 07/20/2024 06/26/2024 MEDICARE AWV ? CALENDAR YEAR 2024 DIABETES-HGB A1C 12/26/2024 06/27/2024 HEPATITIS B VACCINE Aged Out No longe r eligible based on patient's age to complete this topic HIB VACCINE Aged Out No longer eligi ble based on patient's age to complete this topic HPV VACCINE Aged Out No longer eligi ble based on patient's age to complete this topic MENINGOCOCCAL (Group B) VACCINE Aged Out No longer eligible based on patient's age to complete this topic MENINGOCOCCAL VACCINE Aged Out No [place] eligible based on patient's age to complete this topic Procedures Procedure Name Priority Date/Time Associated Diagnosis Comments GLUCOSE - POINT OF CARE Routine 07/15/20 10:58 AM OIL REFINER URINALYSIS REFLEX TO MICROSCOPIC NO CULTURE Routine 07/15/2024 9:49 AM OIL REFINER GLUCOSE - POINT OF CARE Routine 07/15/20 7:19 AM OIL REFINER GLUCOSE - POINT OF CARE Routine 07/14/20 8:37 PM OIL REFINER BASIC METABOLIC PANEL (CALCIUM TOTAL) Routine 07/14/2024 7:18 PM OIL REFINER CBC W/O DIFFERENTIAL Routine 07/14/2024 7:18 PM OIL REFINER GLUCOSE - POINT OF CARE Routine 07/14/20 4:09 PM OIL REFINER GLUCOSE - POINT OF CARE Routine 07/14/20 11:09 AM OIL REFINER GLUCOSE - POINT OF CARE Routine 07/14/20 7:06 AM OIL REFINER GLUCOSE - POINT OF CARE Routine 07/13/20 9:03 PM OIL REFINER GASTROINTESTINAL PATHOGEN PANEL BY PCR Routine 07/13/2024 2:47 PM OIL REFINER GLUCOSE - POINT OF CARE Routine 07/13/20 11:38 AM OIL REFINER GLUCOSE - POINT OF CARE Routine 07/13/20 7:37 AM OIL REFINER GLUCOSE - POINT OF CARE Routine 07/13/20 5:29 AM OIL REFINER CBC W/O DIFFERENTIAL Routine 07/13/2024 12:57 AM OIL REFINER BASIC METABOLIC PANEL (CALCIUM TOTAL) Routine 07/13/2024 12:57 AM OIL REFINER GLUCOSE - POINT OF CARE Routine 07/12/20 9:27 PM OIL REFINER GLUCOSE - POINT OF CARE Routine 07/12/20 9:16 PM OIL REFINER GLUCOSE - POINT OF CARE Routine 07/12/20 11:37 AM OIL REFINER GLUCOSE - POINT OF CARE Routine 07/12/20 7:18 AM OIL REFINER GLUCOSE - POINT OF CARE Routine 07/11/20 4:35 PM OIL REFINER GLUCOSE - POINT OF CARE Routine 07/11/20 11:43 AM OIL REFINER GLUCOSE - POINT OF CARE Routine 07/11/20 7:31 AM OIL REFINER CBC W/O DIFFERENTIAL Routine 07/11/2024 5:44 AM OIL REFINER BASIC METABOLIC PANEL (CALCIUM TOTAL) Routine 07/11/2024 5:44 AM OIL REFINER GLUCOSE - POINT OF CARE Routine 07/10/20 8:40 PM OIL REFINER GLUCOSE - POINT OF CARE Routine 07/10/20 5:00 PM OIL REFINER GLUCOSE - POINT OF CARE Routine 07/10/20 11:51 AM OIL REFINER CBC W/O DIFFERENTIAL Routine 07/10/2024 7:32 AM OIL REFINER BASIC METABOLIC PANEL (CALCIUM TOTAL) Routine 07/10/2024 7:32 AM OIL REFINER GLUCOSE - POINT OF CARE Routine 12/22/20 24 7:31 AM OIL REFINER GLUCOSE - POINT OF CARE Routine 07/10/20 6:16 AM OIL REFINER GLUCOSE - POINT OF CARE Routine 07/10/20 12:52 AM OIL REFINER GLUCOSE - POINT OF CARE Routine 07/09/20 9:26 PM OIL REFINER GLUCOSE - POINT OF CARE Routine 07/09/20 12:20 PM OIL REFINER XR CHEST 1VW PORTABLE STAT 07/09/2024 9:51 AM OIL REFINER Hypotension, unspecified hypotension type GLUCOSE - POINT OF CARE Routine 07/09/20 7:59 AM OIL REFINER GLUCOSE - POINT OF CARE Routine 07/09/20 5:56 AM OIL REFINER PHOSPHORUS BLOOD Routine 07/09/2024 3:02 AM OIL REFINER MAGNESIUM BLOOD Routine 07/09/2024 3:02 AM OIL REFINER CBC W/O DIFFERENTIAL Routine 07/09/2024 3:02 AM OIL REFINER BASIC METABOLIC PANEL (CALCIUM TOTAL) Routine 07/09/2024 3:02 AM OIL REFINER GLUCOSE - POINT OF CARE Routine 07/08/20 11:19 PM OIL REFINER GLUCOSE - POINT OF CARE Routine 07/08/20 9:04 PM OIL REFINER GLUCOSE - POINT OF CARE Routine 07/08/20 3:44 PM OIL REFINER GLUCOSE - POINT OF CARE Routine 07/08/20 11:53 AM OIL REFINER GLUCOSE - POINT OF CARE Routine 07/08/20 7:41 AM OIL REFINER GLUCOSE - POINT OF CARE Routine 07/08/20 5:25 AM OIL REFINER PHOSPHORUS BLOOD Routine 07/08/2024 2:24 AM OIL REFINER MAGNESIUM BLOOD Routine 07/08/2024 2:24 AM OIL REFINER CBC W/O DIFFERENTIAL Routine 07/08/2024 2:24 AM OIL REFINER BASIC METABOLIC PANEL (CALCIUM TOTAL) Routine 07/08/2024 2:24 AM OIL REFINER GLUCOSE - POINT OF CARE Routine 07/08/20 12:19 AM OIL REFINER GLUCOSE - POINT OF CARE Routine 07/07/20 8:34 PM OIL REFINER GLUCOSE - POINT OF CARE Routine 07/07/20 4:13 PM OIL REFINER GLUCOSE - POINT OF CARE Routine 07/07/20 11:26 AM OIL REFINER GLUCOSE - POINT OF CARE Routine 07/07/20 7:43 AM OIL REFINER GLUCOSE - POINT OF CARE Routine 07/07/20 5:41 AM OIL REFINER PHOSPHORUS BLOOD Routine 07/07/2024 2:28 AM OIL REFINER MAGNESIUM BLOOD Routine 07/07/2024 2:28 AM OIL REFINER CBC W/O DIFFERENTIAL Routine 07/07/2024 2:28 AM OIL REFINER BASIC METABOLIC PANEL (CALCIUM TOTAL) Routine 07/07/2024 2:28 AM OIL REFINER GLUCOSE - POINT OF CARE Routine 07/07/20 12:18 AM OIL REFINER GLUCOSE - POINT OF CARE Routine 07/06/20 8:09 PM OIL REFINER GLUCOSE - POINT OF CARE Routine 07/06/20 4:57 PM OIL REFINER GLUCOSE - POINT OF CARE Routine 07/06/20 11:54 AM OIL REFINER PHOSPHORUS BLOOD Routine 07/06/2024 2:55 AM OIL REFINER MAGNESIUM BLOOD Routine 07/06/2024 2:55 AM OIL REFINER CBC W/O DIFFERENTIAL Routine 07/06/2024 2:55 AM OIL REFINER BASIC METABOLIC PANEL (CALCIUM TOTAL) Routine 07/06/2024 2:55 AM OIL REFINER GLUCOSE - POINT OF CARE Routine 07/05/20 11:27 PM OIL REFINER GLUCOSE - POINT OF CARE Routine 07/05/20 8:19 PM OIL REFINER GLUCOSE - POINT OF CARE Routine 07/05/20 5:56 AM OIL REFINER PHOSPHORUS BLOOD Routine 07/05/2024 2:08 AM OIL REFINER MAGNESIUM BLOOD Routine 07/05/2024 2:08 AM OIL REFINER CBC W/O DIFFERENTIAL Routine 07/05/2024 2:08 AM OIL REFINER BASIC METABOLIC PANEL (CALCIUM TOTAL) Routine 07/05/2024 2:08 AM OIL REFINER XR ABDOMEN KUB PORTABLE STAT 07/05/20 1:02 AM OIL REFINER Altered mental status, unspecified altered mental status type Right sided weakness Left-sided weakness GLUCOSE - POINT OF CARE Routine 07/05/20 12:28 AM OIL REFINER GLUCOSE - POINT OF CARE Routine 07/04/20 3:28 PM OIL REFINER XR CHEST 1VW PORTABLE Routine 07/04/2024 2:48 PM OIL REFINER Other cough GLUCOSE - POINT OF CARE Routine 07/04/20 12:39 PM OIL REFINER GLUCOSE - POINT OF CARE Routine 07/04/20 6:47 AM OIL REFINER PHOSPHORUS BLOOD Routine 07/04/2024 3:17 AM OIL REFINER MAGNESIUM BLOOD Routine 07/04/2024 3:17 AM OIL REFINER CBC W/O DIFFERENTIAL Routine 07/04/2024 3:17 AM OIL REFINER BASIC METABOLIC PANEL (CALCIUM TOTAL) Routine 07/04/2024 3:17 AM OIL REFINER GLUCOSE - POINT OF CARE Routine 07/04/20 1:20 AM OIL REFINER GLUCOSE - POINT OF CARE Routine 07/03/20 5:42 PM OIL REFINER GLUCOSE - POINT OF CARE Routine 07/03/20 1:20 PM OIL REFINER GLUCOSE - POINT OF CARE Routine 07/03/20 6:21 AM OIL REFINER PHOSPHORUS BLOOD Routine 07/03/2024 3:41 AM OIL REFINER MAGNESIUM BLOOD Routine 07/03/2024 3:41 AM OIL REFINER CBC W/O DIFFERENTIAL Routine 07/03/2024 3:41 AM OIL REFINER BASIC METABOLIC PANEL (CALCIUM TOTAL) Routine 07/03/2024 3:41 AM OIL REFINER GLUCOSE - POINT OF CARE Routine 07/03/20 1:18 AM OIL REFINER GLUCOSE - POINT OF CARE Routine 07/02/20 5:17 PM OIL REFINER GLUCOSE - POINT OF CARE Routine 07/02/20 12:01 PM OIL REFINER GLUCOSE - POINT OF CARE Routine 07/02/20 5:23 AM OIL REFINER PHOSPHORUS BLOOD Routine 07/02/2024 1:59 AM OIL REFINER MAGNESIUM BLOOD Routine 07/02/2024 1:59 AM OIL REFINER CBC W/O DIFFERENTIAL Routine 07/02/2024 1:59 AM OIL REFINER BASIC METABOLIC PANEL (CALCIUM TOTAL) Routine 07/02/2024 1:59 AM OIL REFINER GLUCOSE - POINT OF CARE Routine 07/01/20 11:54 PM OIL REFINER GLUCOSE - POINT OF CARE Routine 07/01/20 5:22 PM OIL REFINER GLUCOSE - POINT OF CARE Routine 07/01/20 11:35 AM OIL REFINER GLUCOSE - POINT OF CARE Routine 07/01/20 5:31 AM OIL REFINER PHOSPHORUS BLOOD Routine 06/30/2024 11:2 3 PM OIL REFINER MAGNESIUM BLOOD Routine 06/30/2024 11:23 PM OIL REFINER CBC W/O DIFFERENTIAL Routine 06/30/2024 11:23 PM OIL REFINER BASIC METABOLIC PANEL (CALCIUM TOTAL) Routine 06/30/2024 11:23 PM OIL REFINER CBC W/O DIFFERENTIAL Routine 06/30/2024 2:53 PM OIL REFINER BASIC METABOLIC PANEL (CALCIUM TOTAL) Routine 06/30/2024 2:53 PM OIL REFINER GLUCOSE - POINT OF CARE Routine 06/30/20 2:22 PM OIL REFINER GLUCOSE - POINT OF CARE Routine 06/30/20 12:44 PM OIL REFINER GLUCOSE - POINT OF CARE Routine 06/30/20 5:59 AM OIL REFINER TSH REFLEX FREE T4 Routine 06/30/2024 3: 36 AM OIL REFINER PHOSPHORUS BLOOD Routine 06/30/2024 3:36 AM OIL REFINER MAGNESIUM BLOOD Routine 06/30/2024 3:36 AM OIL REFINER CBC W/O DIFFERENTIAL Routine 06/30/2024 3:36 AM OIL REFINER BASIC METABOLIC PANEL (CALCIUM TOTAL) Routine 06/30/2024 3:36 AM OIL REFINER GLUCOSE - POINT OF CARE Routine 06/29/20 11:42 PM OIL REFINER GLUCOSE - POINT OF CARE Routine 06/29/20 11:11 PM OIL REFINER GLUCOSE - POINT OF CARE Routine 06/29/20 4:44 PM OIL REFINER ECHO COMPLETE W CONTRAST W BUBBLE STUDY Routine 06/29/2024 3:17 PM OIL REFINER Right sided weakness GLUCOSE - POINT OF CARE Routine 06/29/20 12:24 PM OIL REFINER GLUCOSE - POINT OF CARE Routine 06/29/20 8:22 AM OIL REFINER XR CHEST 1VW PORTABLE Routine 06/29/2024 8:05 AM OIL REFINER Right sided weakness GLUCOSE - POINT OF CARE Routine 06/29/20 5:54 AM OIL REFINER PHOSPHORUS BLOOD Routine 06/29/2024 2:27 AM OIL REFINER MAGNESIUM BLOOD Routine 06/29/2024 2:27 AM OIL REFINER CBC W/O DIFFERENTIAL Routine 06/29/2024 2:27 AM OIL REFINER BASIC METABOLIC PANEL (CALCIUM TOTAL) Routine 06/29/2024 2:27 AM OIL REFINER GLUCOSE - POINT OF CARE Routine 06/29/20 12:11 AM OIL REFINER GLUCOSE - POINT OF CARE Routine 06/28/20 9:14 PM OIL REFINER GLUCOSE - POINT OF CARE Routine 06/28/20 12:33 PM OIL REFINER XR CHEST 1VW PORTABLE Routine 06/28/2024 8:22 AM OIL REFINER Right sided weakness CARDIAC EKG ORDER 06/28/2024 8:0 4 AM OIL REFINER GLUCOSE - POINT OF CARE Routine 06/28/20 6:21 AM OIL REFINER PHOSPHORUS BLOOD STAT 06/28/2024 2:56 AM OIL REFINER MAGNESIUM BLOOD STAT 06/28/2024 2:56 AM OIL REFINER CBC W/O DIFFERENTIAL Routine 06/28/2024 2:56 AM OIL REFINER BASIC METABOLIC PANEL (CALCIUM TOTAL) Routine 06/28/2024 2:56 AM OIL REFINER GLUCOSE - POINT OF CARE Routine 06/28/20 12:35 AM OIL REFINER GLUCOSE - POINT OF CARE Routine 06/27/20 10:21 PM OIL REFINER GLUCOSE - POINT OF CARE Routine 06/27/20 8:21 PM OIL REFINER XR ABDOMEN KUB PORTABLE STAT 06/27/20 1:09 PM OIL REFINER Dysphagia, unspecified type GLUCOSE - POINT OF CARE Routine 06/27/20 7:56 AM OIL REFINER GLUCOSE - POINT OF CARE Routine 06/27/20 5:25 AM OIL REFINER XR CHEST 1VW PORTABLE Routine 06/27/2024 4:57 AM OIL REFINER Hemothorax on right LIPID PROFILE STAT 06/27/2024 1:23 AM OIL REFINER CBC W/O DIFFERENTIAL STAT 06/27/2024 1:23 AM OIL REFINER BASIC METABOLIC PANEL (CALCIUM TOTAL) STAT 06/27/2024 1:23 AM OIL REFINER HEMOGLOBIN A1C Add on 06/27/2024 1:23 AM OIL REFINER GLUCOSE - POINT OF CARE Routine 06/27/20 24 1:15 AM OIL REFINER TROPONIN-I HIGH SENSITIVE REFLEX 1HOUR Timed 06/26/2024 11:05 PM OIL REFINER GLUCOSE - POINT OF CARE Routine 06/26/20 9:23 PM OIL REFINER MRI BRAIN WO CONTRAST STAT 06/26/2024 8:50 PM OIL REFINER Altered mental status, unspecified altered mental status type Closed fracture of body of sternum, initial encounter Closed fracture of multiple ribs of right side, initial encounter Hemothorax on right TROPONIN-I HIGH SENSITIVE BASELINE + 1HR STAT 06/26/2024 5:54 PM OIL REFINER TROPONIN-I HIGH SENSITIVE REFLEX 1HOUR Timed 06/26/2024 5:54 PM OIL REFINER PT EVAL AND TREAT Routine 06/26/2024 5:4 8 PM OIL REFINER OT EVAL AND TREAT Routine 06/26/2024 5:4 8 PM OIL REFINER URINE MICROSCOPIC ONLY REFLEX TO CULTURE STAT 06/26/2024 5:40 PM OIL REFINER URINALYSIS REFLEX MICROSCOPIC REFLEX CULTURE STAT 06/26/2024 5:40 PM OIL REFINER CULTURE URINE STAT 06/26/2024 5:40 PM OIL REFINER CULTURE BLOOD Timed 06/26/2024 4:56 PM OIL REFINER CULTURE BLOOD Timed 06/26/2024 4:48 PM OIL REFINER TROPONIN-I HIGH SENSITIVE BASELINE + 1HR STAT 06/26/2024 4:36 PM OIL REFINER LACTIC ACID BLOOD REFLEX TO REPEAT STAT 06/26/2024 4:36 PM OIL REFINER URINE DRUG SCREEN IMMUNOASSAY STAT 06/26/2024 2:39 PM OIL REFINER BLOOD TYPE VERIFICATION STAT 06/26/20 24 1:39 PM OIL REFINER TROPONIN-I HIGH SENSITIVE REFLEX 1HOUR Timed 06/26/2024 1:[address] ANGIO BRAIN NECK STROKE STAT 06/26/2024 12:50 PM OIL REFINER Altered mental status, unspecified altered mental status type CT FACIAL BONES WO CONTRAST STAT 06/26/2024 12:50 PM OIL REFINER Altered mental status, unspecified altered mental status type CT LUMBAR SPINE WO CONTRAST STAT 06/26/2024 12:50 PM OIL REFINER Altered mental status, unspecified altered mental status type CT THORACIC SPINE WO CONTRAST STAT 06/26/2024 12:50 PM OIL REFINER Altered mental status, unspecified altered mental status type CT CHEST ABDOMEN PELVIS W CONT STAT 06/26/2024 12:50 PM OIL REFINER Altered mental status, unspecified altered mental status type CT CERVICAL SPINE WO CONTRAST STAT 06/26/2024 12:50 PM OIL REFINER Altered mental status, unspecified altered mental status type CT BRAIN STROKE STAT 06/26/2024 12:50 PM OIL REFINER Altered mental status, unspecified altered mental status type XR CHEST 1VW PORTABLE STAT 06/26/2024 12:40 PM OIL REFINER Altered mental status, unspecified altered mental status type EKG 12-LEAD Routine 06/26/2024 12:30 PM OIL REFINER Altered mental status, unspecified altered mental status type TYPE + SCREEN PANEL STAT 06/26/2024 1 2:25 PM OIL REFINER TROPONIN-I HIGH SENSITIVE BASELINE + 1HR STAT 06/26/2024 12:25 PM OIL REFINER PTT [facility] STAT 06/26/2024 12:25 PM OIL REFINER PT-INR [facility] STAT 06/26/2024 12:25 PM OIL REFINER LIPASE BLOOD STAT 06/26/2024 12:25 PM OIL REFINER CBC W AUTO DIFFERENTIAL STAT 06/26/20 12:25 PM OIL REFINER BASIC METABOLIC PANEL (CALCIUM TOTAL) STAT 06/26/2024 12:25 PM OIL REFINER AMYLASE BLOOD STAT 06/26/2024 12:25 PM OIL REFINER ALCOHOL ETHYL BLOOD STAT 06/26/2024 1 2:25 PM OIL REFINER from Last 3 Months Results * (ABNORMAL) GLUCOSE - POINT OF CARE (07/15/2024 10:58 AM OIL REFINER) Only the most recent of82 resultswithin the time period is included. Pathologist [facility] Glucose WB/POC 183(H) 70 - 99 mg/dL 07/15/2024 4:10 PM OIL REFINER [facility] Specimen Type Arterial 07/15/2024 4:10 PM OIL REFINER [facility] Blood BLOOD SPECIMEN / Unknown 07/15/2024 10:58 AM OIL REFINER 07/15/2024 4:09 PM OIL REFINER Edwin Sánchez MD LAB - POINT OF CARE ORDERABLES [address] [address], [facility] [phone] * (ABNORMAL) URINALYSIS REFLEX TO MICROSCOPIC NO CULTURE (07/15/2024 9:49 AM OIL REFINER) Color UA Yellow Straw, Yellow 07/15/2024 10:00 AM [facility] Clarity UA Cloudy(A) Clear 07/15/2024 10:00 AM [facility] Specific [place] UA 1.012 1.005 - 1.030 07/15/2024 10:00 AM [facility] pH UA 5.0 5.0 - 8.0 pH 07/15/2024 10:00 AM [facility] Protein UA Negative Negative 07/15/2024 10:00 AM [facility] Glucose UA Negative Negative 07/15/2024 10:00 AM [facility] Ketone UA Negative Negative 07/15/2024 10:00 AM [facility] Bilirubin UA Negative Negative 07/15/2024 10:00 AM [facility] Blood UA 2+(A) Negative 07/15/2024 10:00 AM [facility] Nitrite UA Negative Negative 07/15/2024 10:00 AM [facility] Leukocyte Esterase 3+(A) Negative 07/15/2024 10:00 AM [facility] Urobilinogen UA Negative Negative mg/dL 07/15/2024 10:00 AM [facility] RBC UA 11-20(A) None Seen, 0-2, 3-5 /HPF 07/15/2024 10:00 AM [facility] WBC UA >100(A) None Seen, 0-5 /HPF 07/15/2024 10:00 AM [facility] Bacteria UA 1+(A) None /HPF 07/15/2024 10:00 AM [facility] Squamous Epithelial Cells UA 6-10(A) None Seen, 0-2, 3-5 /HPF 07/15/2024 10:00 AM [facility] Transitional Epithelial Cells UA 0-2(A) None Seen /HPF 07/15/2024 10:00 AM [facility] Mucus UA 1+ /LPF 07/15/2024 10:00 AM [facility] Urine URINE SPECIMEN OBTAINED BY CLEAN CATCH PROCEDURE / Unknown 07/15/2024 9:49 AM OIL REFINER 07/15/2024 9:49 AM [facility] - 07/15/2024 10:[address] [facility] Edwin Sánchez MD LAB - URINALYSIS ORD ERABLES [facility] [address] [place] [address], [facility] [phone] * (ABNORMAL) CBC W/O DIFFERENTIAL (07/14/2024 7:18 PM OIL REFINER) Only the most recent of18 resultswithin the time period is included. WBC 10.8(H) 4.0 - 10.7 x10E9/L 07/14/2024 7:54 PM [facility] RBC Count 3.20(L) 3.90 - 5.20 x10E12/L 07/14/2024 7:54 PM [facility] Hemoglobin 10.2(L) 11.9 - 15.8 g/dL 07/14/2024 7:54 PM [facility] Hematocrit 29.8(L) 34.8 - 46.1 % 07/14/2024 7:54 PM [facility] MCV 93.1 80.0 - 98.0 fL 07/14/2024 7:54 PM [facility] MCH 31.9 26.7 - 33.6 pg 07/14/2024 7:54 PM [facility] MCHC 34.2 31.7 - 36.3 g/dL 07/14/2024 7:54 PM [facility] RDW-CV 15.1(H) 11.3 - 14.8 % 07/14/2024 7:54 PM [facility] Platelet Count 203 150 - 420 x10E9/L 07/14/2024 7:54 PM [facility] MPV 9.9 7.8 - 11.4 fL 07/14/2024 7:54 PM [facility] Blood BLOOD SPECIMEN / Unknown Lab Venipuncture / Unknown 07/14/2024 7:18 PM OIL REFINER 07/14/2024 7:44 PM OIL REFINER Edwin Sánchez MD LAB - HEMATOLOGY ORD ERABLES [facility] [address] [place] [address], [facility] [phone] * (ABNORMAL) BASIC METABOLIC PANEL (CALCIUM TOTAL) (07/14/2024 7:18 PM OIL REFINER) Only the most recent of19 resultswithin the time period is included. BUN 20 7 - 26 mg/dL 07/14/2024 8:16 PM [facility] Creatinine 0.82 0.56 - 0.96 mg/dL 07/14/2024 8:16 PM [facility] Sodium 136 136 - 145 mmol/L 07/14/2024 8:16 PM [facility] Potassium 4.4 3.5 - 4.5 mmol/L 07/14/2024 8:16 PM [facility] Chloride 106 98 - 107 mmol/L 07/14/2024 8:16 PM [facility] CO2 21(L) 22 - 29 mmol/L 07/14/2024 8:16 PM [facility] Glucose 151(H) 70 - 99 mg/dL 07/14/2024 8:16 PM [facility] Calcium 7.9(L) 8.4 - 10.2 mg/dL 07/14/2024 8:16 PM [facility] Anion Gap 9 6 - 16 07/14/2024 8:16 PM [facility] BUN/Creatinine Ratio 24(H) 7 - 23 07/14/2024 8:16 PM [facility] Osmolality Calculated 288 275 - 295 mOsm/kg 07/14/2024 8:16 PM [facility] eGFR by CKD-EPI 70(L) >=90 mL/min/1.7 3 m2 07/14/2024 8:16 PM [facility] Blood BLOOD SPECIMEN / Unknown Lab Venipuncture / Unknown 07/14/2024 7:18 PM [facility] 07/14/2024 7:44 PM OIL RE[facility]ER Edwin Sánchez MD LAB - CHEMISTRY [facility] Organization Address City/State/ZIP Co de Phone Number [facility] [address] [place] [address], [facility] [phone] * GASTROINTESTINAL PATHOGEN PANEL BY PCR (07/13/2024 2:47 PM OIL REFINER) Campylobacter Not detected Not detected 07/13/2024 5:04 PM [facility] Plesiomonas shigelloides Not detected Not detected 07/13/2024 5:04 PM [facility] Salmonella Not detected Not detected 07/13/2024 5:04 PM [facility] Vibrio Not detected Not detected 07/13/2024 5:04 PM [facility] Vibrio cholerae Not detected Not detected 07/13/2024 5:04 PM [facility] Yersinia enterocolitica Not detected Not detected 07/13/2024 5:04 PM [facility] Enteroaggregative E coli (EAEC) Not detected Not detected 07/13/2024 5:04 PM [facility] Enteropathogenic E coli (EPEC) Not detected Not detected, N/A 07/13/2024 5:04 PM [facility] Enterotoxigenic E coli (ETEC) LT/ST Not detected Not detected 07/13/2024 5:04 PM [facility] Shiga-Like Toxin-Producing E coli (STEC) stx1/stx2 Not detected Not detected 07/13/2024 5:04 PM [facility] E coli 0157 N/A Not detected, N/A 07/13/2024 5:04 PM [facility] Shigella/Enteroinvas jana E coli Not detected Not detected 07/13/2024 5:04 PM [facility] Cryptosporidium Not detected Not detected 07/13/2024 5:04 PM [facility] Cyclospora cayetanensis Not detected Not detected 07/13/2024 5:04 PM [facility] Entamoeba histolytica Not detected Not detected 07/13/2024 5:04 PM [facility] Giardia lamblia Not detected Not detected 07/13/2024 5:04 PM [facility] Adenovirus F 40/41 Not detected Not detected 07/13/2024 5:04 PM [facility] Astrovirus Not detected Not detected 07/13/2024 5:04 PM [facility] Norovirus GI/GII Not detected Not detected 07/13/2024 5:04 PM [facility] Rotavirus A Not detected Not detected 07/13/2024 5:04 PM [facility] RE[facility] Sapovirus Not detected Not detected 07/13/2024 5:04 PM [facility] Stool STOOL SPECIMEN / Unknown Collection / Unknown 07/13/2024 2:47 PM OIL REFINER 07/13/2024 2:56 PM OIL REFINER Narrative [facility] MICRO[facility]OLOG[facility] - 07/13/2024 5:04 PM OIL REFINER Test performed by [employer] RT-PCR. Edwin Sánchez MD LAB - MICROBIOLOGY O RDERABLES [facility] MICRO[facility]OLOG[facility] [address] [place] [address], [facility] [phone] * XR Chest 1Vw Portable (07/09/2024 9:51 AM OIL REFINER) Only the most recent of6 resultswithin the time period is included. Anatomical Region Laterality Modality Chest Digital Radiogra phy 07/10/2024 8:52 PM OIL REFINER Impressions 07/10/2024 8:53 PM OIL REFINER IMPRESSION: Lungs are clear. No focal consolidation, pleural effusion or pneumothorax. The cardiomediastinal silhouette is unchanged. Right rib fractures again seen. > Interpreting Provider: Terry Arthur MD on 07/10/2024 8:53 PM Narrative 07/10/2024 8:53 PM OIL REFINER PROCEDURE: ??XR CHEST 1VW PORTABLE DATE/TIME OF [...] RDERABLES * PHOSPHORUS BLOOD (07/09/2024 3:02 AM OIL REFINER) Only the most recent of12 resultswithin the time period is included. Phosphorus 3.2 2.9 - 5.1 mg/dL 07/09/2024 4:29 AM OIL REFINER [facility] Blood BLOOD SPECIMEN / Unknown Lab Venipuncture / Unknown 07/09/2024 3:02 AM OIL REFINER 07/09/2024 3:59 AM OIL REFINER Wilder Cruz MD LAB - CHEMISTRY OR DERABLES Performing Organization Address [facility]/ZIP Co de Phone Number [address] [address], [facility] [phone] * MAGNESIUM BLOOD (07/09/2024 3:02 AM OIL REFINER) Only the most recent of12 resultswithin the time period is included. Magnesium 2.1 1.6 - 2.6 mg/dL 07/09/2024 4:29 AM OIL REFINER [facility] Blood BLOOD SPECIMEN / Unknown Lab Venipuncture / Unknown 07/09/2024 3:02 AM OIL REFINER 07/09/2024 3:59 AM OIL REFINER Wilder Cruz MD LAB - CHEMISTRY OR DERABLES Performing Organization Address City/[facility]/ZIP Co de Phone Number [address] [address], [facility] [phone] * XR Abdomen Kub Portable (07/05/2024 1:02 AM OIL REFINER) Only the most recent of2 resultswithin the time period is included. Anatomical Region Laterality Modality Abdomen Digital Radiogra phy 07/05/2024 5:33 AM OIL REFINER Narrative 07/05/2024 2:44 PM OIL REFINER PROCEDURE: ??XR ABDOMEN KUB PORTABLE DATE/TIME OF [...] Report dictated by Gagan Sweeney MD (radiology clerk). Dao Calderon MD have personally reviewed and [...] Report dictated by Gagan Sweeney MD (radiology clerk). Dao Calderon MD have personally reviewed and interpreted this examination/study. > Interpreting Provider: Dao Mustafa MD on 07/05/2024 2:44 PM Ibis Zamudio MD DIAGNOSTIC SPENCER GING ORDERABLES * TSH REFLEX FREE T4 (06/30/2024 3:36 AM OIL REFINER) TSH 0.809 0.350 - 4.940 uIU/mL 06/30/2024 4:50 AM OIL REFINER [facility] Blood BLOOD SPECIMEN / Unknown Lab Venipuncture / Unknown 06/30/2024 3:36 AM OIL REFINER 06/30/2024 4:02 AM OIL REFINER Khai Sotomayor DIVISION OPERATIONS SPECIALIST-HEARING IMPAIRED TEACHER LAB - CHEMISTRY ORDERABLES Performing Organization Address City/[facility]/ZIP Co de Phone Number [facility] [address] [place] [address], [facility] [phone] * ECHO COMPLETE W CONTRAST W BUBBLE STUDY (06/29/2024 3:17 PM OIL REFINER) Myocardial strain charge 2 unitless [facility] CV [...] AV pk harman 152.67 cm/s [facility] CV [facility] I PACS Ascending aorta 3.425 cm [facility] CV [facility] PACS TAPSE 2.022 cm [facility] CV [facility] I PACS LVIDs 3.352 cm [facility] CV [facility] I PACS LV biplane EF 58.727 % [facility] CV [facility] PACS RVOT diam Doppler 1.792 cm [facility] PV pk harman 90.873 cm/s [facility] CV [facility] PACS LV ESV A4C 37.069 ml SSM CV FU PACS IVSd 2D 0.956 cm [facility] CV [facility] PACS MV E pk harman 66.575 cm/s SSM CV F UJI PACS LA size 2.49 cm SSM CV [facility] I PACS LV ESV A2C 35.179 ml SSM CV FU PACS RA area 16.436 cm? ? ? [facility]SM CV [facility] PACS LVOT pk harman 90.256 cm/s SSM CV F UJI PACS LVOT diam 2.096 cm SSM CV [facility] PACS Anatomical Region Laterality Modality Ultrasound 06/29/2024 3:19 PM OIL REFINER Narrative 06/29/2024 3:42 PM OIL REFINER Summary ??* The left ventricle is normal [...] 1940 Gender: ? Female Accession #: ? [id number] Ht: ? 68 in Wt: ? 180 lb BSA: ? 2.00 m2 HR: ? 75 bpm BP: ? 111 / ? 53 mmHg Exam Date: ? 06/29/2024 3:19 PM Patient Status: ? I/P Study Site: ? [facility] Quality: ? Technically Difficult Exam [...] ? 1.00 ml Administered By: ? Luis Huizar Reaction to Contrast: ? no Reason for Technically Difficult ??Study: ? poor patient cooperation, positional limitations Staff Referring Physician: ? Humberto Helton Ordering Provider: ? Humberto Helton Attending Physician: ? Humberto Helton Lock Setter: ? Luis Huizar Left Ventricle ??The left [...] 3:19 PM Patient Status: I/P Study Site: [facility] Primary Location: [facility] EStudy Info Technical Quality: Technically Difficult [...] Saline: Definity Amount: 1.00 ml Administered By: Harinijavad Huizar Reaction to Contrast: no Reason for Technically Difficult Study: poor patient cooperation, positional limitations Staff Referring Physician: Humberto Helton Ordering Provider: Humberto Helton Attending Physician: Humberto Helton Lock Setter: Luis Huizar Left Ventricle The left ventricle [...] * CARDIAC EKG ORDER (06/28/2024 8:04 AM OIL REFINER) Narrative 06/28/2024 8:04 AM OIL REFINER Ordered by an unspecified provider. Scanned Document CARDIAC SERVICES ORD ERABLES * (ABNORMAL) HEMOGLOBIN A1C (06/27/2024 1:23 AM OIL REFINER) Hemoglobin A1c 5.7(H) <=5.6 % 06/28/2024 8:46 AM [facility] Estimated Average Glucose 117 mg/dL 06/28/2024 8:46 AM [facility] Comment: HbA1c Interpretation: Normal : < 5.7% Pre-diabetes: 5.7-6.4% Diabetes: Equal to or greater than 6.5% Test results diagnostic of diabetes should be repeated for confirmation. Treatment target values recommended by ADA and other clinical organizations should be used to evaluate metabolic control in patients. Reference: [place] [employer], Standards of Care in Diabetes -2020 In patients 70 years and older consider HbA1c target range of 7.0-7.5% (Reference: Pranay Garber et al. JAMDA. 2012) The Sebia assay for the measurement of HbA1c is a National Glycohemoglobin Standardization Program (NGSP) certified method. Blood BLOOD SPECIMEN / Unknown Line Draw / Unknown 06/27/2024 1:23 AM OIL REFINER 06/27/2024 3:39 PM OIL REFINER Humberto Helton MD LAB - CHEMISTRY LISA HARDING [facility] [address] [place] [address], [facility] [phone] * LIPID PROFILE (06/27/2024 1:23 AM OIL REFINER) Cholesterol Total 156 <200 mg/dL 06/27/2024 2:01 AM [facility] HDL 51 >40 mg/dL 06/27/2024 2:01 AM [facility] Comment: ATP III Classification of HDL Cholesterol: ? <40 mg/dL: ??Considered a major risk factor. ? >60 mg/dL: ??Considered a negative risk factor. ? LDL Calculated 85 <100 mg/dL 06/27/2024 2:01 AM [facility] Comment: ATP III Classification of LDL Cholesterol: ?<100 mg/dL: ??Optimal ? 100 - 129 mg/dL: ??Near Optimal/Above Optimal ? 130 - 159 mg/dL: ??Borderline High ? 160 - 189 mg/dL: ??High ?>190 mg/dL: ??Very High ? Triglycerides 99 <150 mg/dL 06/27/2024 2:01 AM [facility] Comment: ATP III Classification of Triglycerides: ?<150 mg/dL: ??Normal ? 150 - 199 mg/dL: ??Borderline High ? 200 - 400 mg/dL: ??High ?>500 mg/dL: ??Very High Blood BLOOD SPECIMEN / Unknown Venipuncture / Unknown 06/27/2024 1:23 AM OIL REFINER 06/27/2024 1:30 AM OIL REFINER Humberto Helton MD LAB - CHEMISTRY LISA ANALUIS MIGUEL Performing Organization Address City/[facility]/ZIP Co de Phone Number [address] [address], [facility] [phone] * TROPONIN-I HIGH SENSITIVE REFLEX 1HOUR (06/26/2024 11:05 PM OIL REFINER) Only the most recent of3 resultswithin the time period is included. Troponin I High Sensitive 8 <=14 ng/L 06/26/2024 11:42 PM OIL REFINER [facility] Delta Troponin I HS 06/26/2024 11:42 PM OIL REFINER [facility] Comment:Delta value intentio argenis not calculated. Baseline to 1 hour specimen collection interval exceeded. Blood BLOOD SPECIMEN / Unknown Venipuncture / Unknown 06/26/2024 11:05 PM OIL REFINER 06/26/2024 11:22 PM OIL REFINER Humberto Helton MD LAB - CHEMISTRY LISA HARDING Performing Organization Address [facility]/ZIP Co de Phone Number [address] [address], [facility] [phone] * MRI Brain Wo Contrast (06/26/2024 8:50 PM OIL REFINER) Anatomical Region Laterality Modality Head Magnetic Resonan ce 06/27/2024 7:58 AM OIL REFINER Impressions 06/27/2024 10:12 AM OIL REFINER IMPRESSION: Punctate focus of restricted diffusion within [...] verification. This study was dictated by radiology clerk Panda Lester MD and reviewed and edited by the attending. I, Jeanie Duong MD have personally reviewed and interpreted this examination/study. > Interpreting Provider: Jeanie Duong MD on 06/27/2024 10:12 AM Narrative 06/27/2024 10:12 AM OIL REFINER PROCEDURE: ??MRI BRAIN WO CONTRAST, DATE/TIME OF EXAM: ??06/26/2024 8:52 PM, LOCATION ??[facility] INDICATION: R41.82: Altered mental status, unspecified [...] CONTRAST, DATE/TIME OF EXAM: 06/26/2024 8:52PM, LOCATION [facility] INDICATION: R41.82: Altered mental status, unspecified [...] verification. This study was dictated by radiology clerk Panda Lester MD and reviewed and edited by the attending. I, Jeanie Duong MD have personally reviewed and interpreted this examination/study. > Interpreting Provider: Jeanie Duong MD on 06/27/2024 10:12 AM Calderon Sim MD MR ORDERABLES * TROPONIN-I HIGH SENSITIVE BASELINE + 1HR (06/26/2024 5:54 PM OIL REFINER) Only the most recent of3 resultswithin the time period is included. Troponin I High Sensitive 8 <=14 ng/L 06/26/2024 7:08 PM OIL REFINER [facility] Blood BLOOD SPECIMEN / Unknown Venipuncture / Unknown 06/26/2024 5:54 PM OIL REFINER 06/26/2024 6:35 PM OIL REFINER Humberto Helton MD LAB - CHEMISTRY ORDE MEHDI Performing Organization Address [facility]/ZIP Co de Phone Number [facility] [address] [place] [address], [place] [phone] * (ABNORMAL) URINE MICROSCOPIC ONLY REFLEX TO CULTURE (06/26/2024 5:40 PM OIL REFINER) Reflex Status Culture to follow 06/26/2024 6:10 PM [facility] RBC UA 11-20(A) None Seen, 0-2, 3-5 /HPF 06/26/2024 6:10 PM [facility] WBC UA 51-100(A) None Seen, 0-5 /HPF 06/26/2024 6:10 PM [facility] Bacteria UA 3+(A) None /HPF 06/26/2024 6:10 PM [facility] Squamous Epithelial Cells UA 0-2 None Seen, 0-2, 3-5 /HPF 06/26/2024 6:10 PM [facility] Urine URINE SPECIMEN OBTAINED BY CLEAN CATCH PROCEDURE / Unknown Collection / Unknown 06/26/2024 5:40 PM OIL REFINER 06/26/2024 5:43 PM OIL REFINER Narrative [facility] - 06/26/2024 6:10 PM OIL REFINER Calderon Sim MD LAB - URINALYSIS ORD MARTÍNEZ [facility] [address] [place] [address], [place] [phone] * (ABNORMAL) URINALYSIS REFLEX MICROSCOPIC REFLEX CULTURE (06/26/2024 5:40 PM OIL REFINER) Color UA Yellow Straw, Yellow 06/26/2024 6:09 PM [facility] Clarity UA Slt Cloudy(A) Clear 06/26/2024 6:09 PM [facility] Specific Fillmore UA 1.039(H) 1.005 - 1.030 06/26/2024 6:09 PM [facility] pH UA 6.0 5.0 - 8.0 pH 06/26/2024 6:09 PM [facility] Protein UA 1+(A) Negative 06/26/2024 6:09 PM [facility] Glucose UA Negative Negative 06/26/2024 6:09 PM [facility] Ketone UA Trace(A) Negative 06/26/2024 6:09 PM [facility] Bilirubin UA Negative Negative 06/26/2024 6:09 PM [facility] Blood UA 2+(A) Negative 06/26/2024 6:09 PM [facility] Nitrite UA Positive(A) Negative 06/26/2024 6:09 PM [facility] Leukocyte Esterase 3+(A) Negative 06/26/2024 6:09 PM [facility] Urobilinogen UA Negative Negative mg/dL 06/26/2024 6:09 PM [facility] Comment UA Microscopic to follow. 06/26/2024 6:09 PM [facility] Urine URINE SPECIMEN OBTAINED BY CLEAN CATCH PROCEDURE / Unknown Collection / Unknown 06/26/2024 5:40 PM OIL REFINER 06/26/2024 5:43 PM OIL REFINER Narrative [facility] - 06/26/2024 6:09 PM OIL REFINER Calderon Sim MD LAB - URINALYSIS ORD ERABLES Performing Organization Address [facility] Co de Phone Number [facility] [address] [place] [phone], [facility] [phone] * CULTURE URINE (06/26/2024 5:40 PM OIL REFINER) Culture Urine No growth (<100 CFU/mL) EPI 06/27/2024 11:34 PM OIL REFINER [facility] Urine URINE SPECIMEN OBTAINED BY CLEAN CATCH PROCEDURE / Unknown Collection / Unknown 06/26/2024 5:40 PM OIL REFINER 06/26/2024 6:10 PM OIL REFINER Calderon Sim MD LAB - MICROBIOLOGY O RDERABLES Performing Organization Address City/[facility]/ZIP Co de Phone Number [facility] MICRO[facility]OLOGY [address] [place] [address], [facility] [phone] * CULTURE BLOOD (06/26/2024 4:56 PM OIL REFINER) Only the most recent of2 resultswithin the time period is included. Culture No growth day 5 EPI 07/01/2024 9:00 PM OIL REFINER [facility] Blood PERIPHERAL BLOOD / Unknown Lab Venipuncture / Unknown 06/26/2024 4:56 PM OIL REFINER 06/26/2024 4:58 PM OIL REFINER Jamison Nevarez DO LAB - MICROBIOLOGY O RDMARTÍNEZ Performing Organization Address City/[facility]/ZIP Co de Phone Number [facility] [address] [place] [address], [facility] [phone] * LACTIC ACID BLOOD REFLEX TO REPEAT (06/26/2024 4:36 PM OIL REFINER) Pathologist [facility] Lactic Acid-Stat 1.3 <=2.0 mmol/L 06/26/2024 5:14 PM OIL REFINER [facility] Blood BLOOD SPECIMEN / Unknown Venipuncture / Unknown 06/26/2024 4:36 PM OIL REFINER 06/26/2024 4:45 PM OIL REFINER Jamison Nevarez DO LAB - CHEMISTRY LISA HARDING Performing Organization Address City/[facility]/ZIP Co de Phone Number [facility] [address] [address], [facility] [phone] * URINE DRUG SCREEN IMMUNOASSAY (06/26/2024 2:39 PM OIL REFINER) Amphetamines Screen Urine Negative Negative: < 1000 ng/mL 06/26/2024 3:06 PM OIL REFINER [facility] Barbiturates Screen Urine Negative Negative: < 200 ng/mL 06/26/2024 3:06 PM OIL REFINER [facility] Benzodiazepine Screen Urine Negative Negative: < 200 ng/mL 06/26/2024 3:06 PM OIL REFINER [facility] Opiates Urine Negative Negative: < 300 ng/mL 06/26/2024 3:06 PM [facility] Cocaine Metabolites Urine Negative Negative: < 300 ng/mL 06/26/2024 3:06 PM [facility] Phencyclidine Screen Urine Negative Negative: < 25 ng/ml 06/26/2024 3:06 PM [facility] Cannabinoids Screen Urine Negative Negative: <50 ng/mL 06/26/2024 3:06 PM [facility] Methadone Screen Urine Negative Negative: < 300 ng/mL 06/26/2024 3:06 PM [facility] Fentanyl Screen Urine Negative Negative: <1.5 ng/mL 06/26/2024 3:06 PM [facility] Urine URINE / Unknown Collection / Unknown 06/26/2024 2:[address] [facility] 06/26/2024 2:43 PM [facility] - 06/26/2024 3:[address] [facility] The Urine Toxicology Screening Panel does not screen for Propoxyphene, Meprobamate, Carisoprodol, Trazodone, gyvq-evu-cswekzi medications and/or volatiles (Acetone, Isopropanol, Methanol or Ethylene Glycol). Ethanol, Salicylate, Acetaminophen, Tricyclic Antidepressants and several therapeutic drugs may be individually assayed in serum or plasma specimen. Toxicology testing by the [facility] is an aid to medical diagnosis and treatment of patients. No documented chain of custody was maintained. Results are intended to be used for clinical purposes only. ? Calderon Sim MD LAB - URINE CHEMISTR Y ORDERABLES [facility] [address] [place] [address], [facility] [phone] * BLOOD TYPE VERIFICATION (06/26/2024 1:39 PM OIL REFINER) ABO Rh AB POS 06/26/2024 2:23 PM OIL REFINER [facility] Blood Bank BLOOD SPECIMEN / Unknown Venipuncture / Unknown 06/26/2024 1:39 PM OIL REFINER 06/26/2024 1:51 PM OIL REFINER Calderon Sim MD LAB - BLOOD BANK ORD ERABLES Performing Organization Address [facility] Co de Phone Number [facility] [address] [place] [address], [facility] [phone] * CT Angio Brain Neck Stroke (06/26/2024 12:50 PM OIL REFINER) Anatomical Region Laterality Modality Head Computed Tomogra phy 06/26/2024 12:5 7 PM OIL REFINER Impressions 06/26/2024 7:21 PM OIL REFINER IMPRESSION: 1.Severe focal stenosis/occlusion at the junction [...] is dictated by Price Bates MD (radiology clerk) I, Jeanie Duong MD have personally reviewed and interpreted this examination/study. > Interpreting Provider: Jeanie Duong MD on 06/26/2024 7:21 PM Narrative 06/26/2024 7:21 PM OIL REFINER PROCEDURE: ??CT ANGIO BRAIN NECK STROKE, DATE/TIME OF EXAM: ??06/26/2024 12:53 PM, LOCATION ??[facility] INDICATION: R41.82: Altered mental status, unspecified [...] left posterior cerebral artery with patent distal RISK CONTROL SPECIALIST (series 5 images [id number]). There is atherosclerotic [...] STROKE, DATE/TIME OF EXAM: 2:53 PM, LOCATION [facility] INDICATION: R41.82: Altered mental status, unspecified [...] left posterior cerebral artery with patent distal RISK CONTROL SPECIALIST (series 5 images [id number]). There is atherosclerotic [...] were communicated with closed loop confirmation to Gray on 06/26/2024 1:20 PM. The report is dictated by Price Bates MD (radiology clerk) Jeanie Calderon MD have personally reviewed and interpreted this examination/study. > Interpreting Provider: Jeanie Duong MD on 06/26/2024 7:21 PM Humberto Helton MD CT ORDERABLES * CT CHEST ABDOMEN PELVIS W CONT - Abdomen-pelvis trauma, blunt or penetrating (06/26/2024 12:50 PM OIL REFINER) Anatomical Region Laterality Modality Chest, Abdomen, Pelvis Computed Tomography 06/26/2024 12:2 4 PM OIL REFINER Impressions 06/26/2024 1:12 PM OIL REFINER Impression: 1.Mildly displaced mid sternal body fracture. [...] > Dictated by Ruben Rodriguez DO (radiology clerk). Terry Calderon MD have personally reviewed and interpreted this examination/study. > Interpreting Provider: Terry Arthur MD on 06/26/2024 1:12 PM Narrative 06/26/2024 1:12 PM OIL REFINER PROCEDURE: ??CT CHEST ABDOMEN PELVIS W CONT, DATE/TIME OF EXAM: ??06/26/2024 12:53 PM, LOCATION ??[facility] INDICATION: Trauma COMPARISON: None. TECHNIQUE: CT [...] CONT, DATE/TIME OF EXAM:06/26/2024 12:53 PM, LOCATION [facility] INDICATION: Trauma COMPARISON: None. TECHNIQUE: CT [...] > Dictated by Ruben Rodriguez DO (radiology clerk). Terry Calderon MD have personally reviewed and interpreted this examination/study. > Interpreting Provider: Terry Arthur MD on 06/26/2024 1:12 PM Calderon Sim MD CT ORDERABLES * CT LUMBAR SPINE WO CONTRAST - T/L-spine trauma, Spine fracture (06/26/2024 12:50 PM OIL REFINER) Anatomical Region Laterality Modality Spine Computed Tomogra phy 06/26/2024 12:4 9 PM OIL REFINER Impressions 06/26/2024 7:09 PM OIL REFINER IMPRESSION: 1.No acute facial bone fractures identified. 2.No evidence of acute fracture in the cervical, thoracic, or lumbar spine. 3.Acute, nondisplaced fracture of the posterior left first rib. 4.Please refer to concurrent body CT for further findings. The report is dictated by Price Bates MD (radiology clerk) Jeanie Calderon MD have personally reviewed and interpreted this examination/study. > Interpreting Provider: Jeanie Duong MD on 06/26/2024 7:09 PM Narrative 06/26/2024 7:09 PM OIL REFINER PROCEDURE: ??CT THORACIC SPINE WO CONTRAST, CT LUMBAR SPINE WO CONTRAST, CT FACIAL BONES WO CONTRAST, CT CERVICAL SPINE WO CONTRAST, DATE/TIME OF EXAM: 06/26/2024 12:53 PM, LOCATION ??[facility] INDICATION: Trauma ADDITIONAL CLINICAL INFORMATION: Ordering [...] CONTRAST, DATE/TIME OFEXAM: 06/26/2024 12:53 PM, LOCATION [facility] INDICATION: Trauma ADDITIONAL CLINICAL INFORMATION: Ordering [...] is dictated by Price Bates MD (radiology clerk) I, Jeanie Duong MD have personally reviewed and interpreted this examination/study. > Interpreting Provider: Jeanie Duong MD on 06/26/2024 7:09 PM Calderon Sim MD CT ORDERABLES * CT THORACIC SPINE WO CONTRAST - T/L-spine trauma, spine fracture (06/26/2024 12:50 PM OIL REFINER) Anatomical Region Laterality Modality Spine Computed Tomogra phy 06/26/2024 12:4 9 PM OIL REFINER Impressions 06/26/2024 7:09 PM OIL REFINER IMPRESSION: 1.No acute facial bone fractures identified. 2.No evidence of acute fracture in the cervical, thoracic, or lumbar spine. 3.Acute, nondisplaced fracture of the posterior left first rib. 4.Please refer to concurrent body CT for further findings. The report is dictated by Price Bates MD (radiology clerk) IJeanie MD have personally reviewed and interpreted this examination/study. > Interpreting Provider: Jeanie Duong MD on 06/26/2024 7:09 PM Narrative 06/26/2024 7:09 PM OIL REFINER PROCEDURE: ??CT THORACIC SPINE WO CONTRAST, CT LUMBAR SPINE WO CONTRAST, CT FACIAL BONES WO CONTRAST, CT CERVICAL SPINE WO CONTRAST, DATE/TIME OF EXAM: 06/26/2024 12:53 PM, LOCATION ??[facility] INDICATION: Trauma ADDITIONAL CLINICAL INFORMATION: Ordering [...] CONTRAST, DATE/TIME OFEXAM: 06/26/2024 12:53 PM, LOCATION [facility] INDICATION: Trauma ADDITIONAL CLINICAL INFORMATION: Ordering [...] is dictated by Price Bates MD (radiology clerk) Jeanie Calderon MD have personally reviewed and interpreted this examination/study. > Interpreting Provider: Jeanie Duong MD on 06/26/2024 7:09 PM Calderon Sim MD CT ORDERABLES * CT CERVICAL SPINE WO CONTRAST - C-Spine Trauma, Spine fracture (06/26/2024 12:50 PM OIL REFINER) Anatomical Region Laterality Modality Spine Computed Tomogra phy 06/26/2024 12:4 9 PM OIL REFINER Impressions 06/26/2024 7:09 PM OIL REFINER IMPRESSION: 1.No acute facial bone fractures identified. 2.No evidence of acute fracture in the cervical, thoracic, or lumbar spine. 3.Acute, nondisplaced fracture of the posterior left first rib. 4.Please refer to concurrent body CT for further findings. The report is dictated by Price Bates MD (radiology clerk) Jeanie Calderon MD have personally reviewed and interpreted this examination/study. > Interpreting Provider: Jeanie Duong MD on 06/26/2024 7:09 PM Narrative 06/26/2024 7:09 PM OIL REFINER PROCEDURE: ??CT THORACIC SPINE WO CONTRAST, CT LUMBAR SPINE WO CONTRAST, CT FACIAL BONES WO CONTRAST, CT CERVICAL SPINE WO CONTRAST, DATE/TIME OF EXAM: 06/26/2024 12:53 PM, LOCATION ??[facility] INDICATION: Trauma ADDITIONAL CLINICAL INFORMATION: Ordering [...] CONTRAST, DATE/TIME OFEXAM: 06/26/2024 12:53 PM, LOCATION [facility] INDICATION: Trauma ADDITIONAL CLINICAL INFORMATION: Ordering [...] is dictated by Price Bates MD (radiology clerk) Jeanie Calderon MD have personally reviewed and interpreted this examination/study. > Interpreting Provider: Jeanie Duong MD on 06/26/2024 7:09 PM Calderon Sim MD CT ORDERABLES * CT FACIAL BONES WO CONTRAST - Facial trauma, fx suspected, blunt (06/26/2024 12:50 PM OIL REFINER) Anatomical Region Laterality Modality Head Computed Tomogra phy 06/26/2024 12:4 9 PM OIL REFINER Impressions 06/26/2024 7:09 PM OIL REFINER IMPRESSION: 1.No acute facial bone fractures identified. 2.No evidence of acute fracture in the cervical, thoracic, or lumbar spine. 3.Acute, nondisplaced fracture of the posterior left first rib. 4.Please refer to concurrent body CT for further findings. The report is dictated by Price Bates MD (radiology clerk) Jeanie Calderon MD have personally reviewed and interpreted this examination/study. > Interpreting Provider: Jeanie Duong MD on 06/26/2024 7:09 PM Narrative 06/26/2024 7:09 PM OIL REFINER PROCEDURE: ??CT THORACIC SPINE WO CONTRAST, CT LUMBAR SPINE WO CONTRAST, CT FACIAL BONES WO CONTRAST, CT CERVICAL SPINE WO CONTRAST, DATE/TIME OF EXAM: 06/26/2024 12:53 PM, LOCATION ??[facility] INDICATION: Trauma ADDITIONAL CLINICAL INFORMATION: Ordering [...] CONTRAST, DATE/TIME OFEXAM: 06/26/2024 12:53 PM, LOCATION [facility] INDICATION: Trauma ADDITIONAL CLINICAL INFORMATION: Ordering [...] is dictated by Price Bates MD (radiology clerk) I, Jeanie Duong MD have personally reviewed and interpreted this examination/study. > Interpreting Provider: Jeanie Duong MD on 06/26/2024 7:09 PM Calderon Sim MD CT ORDERABLES * CT Brain Stroke (06/26/2024 12:50 PM OIL REFINER) Anatomical Region Laterality Modality Head Computed Tomogra phy 06/26/2024 12:0 8 PM OIL REFINER Impressions 06/26/2024 12:19 PM OIL REFINER IMPRESSION: No acute intracranial hemorrhage or other acute abnormality by CT. Please note that MRI is more sensitive for evaluation of small acute ischemic infarcts. These findings were discussed with patient's care provider, , by on 06/26/2024 12:13 PM with read back verification. > Interpreting Provider: Jeanie Duong MD on 06/26/2024 12:19 PM Narrative 06/26/2024 12:19 PM OIL REFINER PROCEDURE: ??CT BRAIN STROKE, DATE/TIME OF EXAM: ??06/26/2024 11:58 AM, LOCATION ??[facility] INDICATION: R41.82: Altered mental status, unspecified [...] DATE/TIME OF EXAM: 06/26/2024 11:58 AM, LOCATION [facility] INDICATION: R41.82: Altered mental status, unspecified [...] ORDERABLES * EKG 12-LEAD (06/26/2024 12:30 PM OIL REFINER) Ventricular Rate 94 BPM [facility] MUSE Atrial Rate 88 BPM [facility] MUSE QRS Duration ms 90 ms [facility] MUSE Q-T Interval ms 388 ms [facility] MUSE QTC Calculation (Bezet) 485 ms [facility] MUSE Calculated R [place] -33 degrees [facility] MUSE Calculated T [place] 13 degrees [facility] MUSE Interpretation EKG UNDETERMINED RHYTHM ??- Artifact makes it difficult to determine rhythm LEFT AXIS DEVIATION MODERATE VOLTAGE CRITERIA FOR LVH, MAY BE NORMAL VARIANT ( R in aVL , Michael product ) INFERIOR INFARCT , AGE UNDETERMINED CANNOT RULE OUT ANTERIOR INFARCT , AGE UNDETERMINED ABNORMAL ECG NO PREVIOUS ECGS AVAILABLE Confirmed by TRENT NESBITT DO ([id number]) on 07/02/2024 4:44:56 PM [facility] MUSE 06/26/2024 12:3 0 PM OIL REFINER 07/02/2024 4:44 PM OIL REFINER Calderon Sim MD ECG ORDERABLES [facility] MUSE * (ABNORMAL) PTT [facility] (06/26/2024 12:25 PM OIL REFINER) APTT 21.0(L) 23.0 - 38.4 Seconds 06/26/2024 12:56 PM [facility] Comment:Suggested therapeuti c range for full dose I.V. unfractionated heparin therapy for venous thromboembolism is 71 to 109 seconds. Blood BLOOD SPECIMEN / Unknown Venipuncture / Unknown 06/26/2024 12:25 PM OIL REFINER 06/26/2024 12:31 PM OIL REFINER Calderon Sim MD LAB - COAGULATION OR DERABLES Performing Organization Address City/[facility]/ZIP Co de Phone Number [facility] [address] [place] [address], [facility] [phone] * PT-INR [facility] (06/26/2024 12:25 PM OIL REFINER) PT 12.7 12.1 - 14.8 Seconds 06/26/2024 12:56 PM [facility] INR 1.0 See Comment 06/26/2024 12:56 PM [facility] Comment:The suggested therap eutic range for standard coumadin (warfarin) therapy is an INR of 2.0-3.0. For high-risk patients (Mechanical Mitral Valve Prosthesis, etc.), the suggested prophylactic therapeutic range is an INR of 2.5-3.5. Blood BLOOD SPECIMEN / Unknown Venipuncture / Unknown 06/26/2024 12:25 PM OIL REFINER 06/26/2024 12:31 PM OIL REFINER Calderon Sim MD LAB - COAGULATION OR DERABLES Performing Organization Address City/[facility]/ZIP Co de Phone Number [facility] [address] [place] [address], [facility] [phone] * TYPE + SCREEN PANEL (06/26/2024 12:25 PM OIL REFINER) Antibody Screen NEG 06/26/2024 1:13 PM OIL REFINER [facility] BLOOD BANK LAB ABO Rh AB POS 06/26/2024 1:13 PM OIL REFINER [facility] BLOOD BANK LAB Blood Bank BLOOD SPECIMEN / Unknown Venipuncture / Unknown 06/26/2024 12:25 PM OIL REFINER 06/26/2024 12:30 PM OIL REFINER Calderon Sim MD LAB - BLOOD BANK ORD ERABLES [facility] BLOOD BANK LAB [address] [place] [address], [facility] [phone] * (ABNORMAL) CBC W AUTO DIFFERENTIAL (06/26/2024 12:25 PM OIL REFINER) WBC 12.0(H) 4.0 - 10.7 x10E9/L 06/26/2024 12:39 PM [facility] RBC Count 4.66 3.90 - 5.20 x10E12/L 06/26/2024 12:39 PM [facility] Hemoglobin 14.3 11.9 - 15.8 g/dL 06/26/2024 12:39 PM [facility] Hematocrit 40.3 34.8 - 46.1 % 06/26/2024 12:39 PM [facility] MCV 86.5 80.0 - 98.0 fL 06/26/2024 12:39 PM [facility] MCH 30.7 26.7 - 33.6 pg 06/26/2024 12:39 PM [facility] MCHC 35.5 31.7 - 36.3 g/dL 06/26/2024 12:39 PM [facility] RDW-CV 12.9 11.3 - 14.8 % 06/26/2024 12:39 PM [facility] Platelet Count 174 150 - 420 x10E9/L 06/26/2024 12:39 PM [facility] MPV 10.0 7.8 - 11.4 fL 06/26/2024 12:39 PM [facility] Neutrophil % 73.6 41.0 - 74.0 % 06/26/2024 12:39 PM [facility] Lymphocyte % 18.0 17.0 - 47.0 % 06/26/2024 12:39 PM [facility] Monocyte % 7.0 3.0 - 11.0 % 06/26/2024 12:39 PM [facility] Eosinophil % 0.5 0.0 - 7.0 % 06/26/2024 12:39 PM [facility] Basophil % 0.3 0.0 - 1.6 % 06/26/2024 12:39 PM [facility] Immature Granulocytes % 0.6 0.0 - 1.0 % 06/26/2024 12:39 PM [facility] Neutrophil Absolute 8.84(H) 1.60 - 7.50 x10E9/L 06/26/2024 12:39 PM [facility] Lymphocyte Absolute 2.16 1.00 - 4.40 x10E9/L 06/26/2024 12:39 PM [facility] Monocyte Absolute 0.84 0.15 - 1.00 x10E9/L 06/26/2024 12:39 PM [facility] Eosinophil Absolute 0.06 0.00 - 0.60 x10E9/L 06/26/2024 12:39 PM [facility] Basophil Absolute 0.03 0.00 - 0.13 x10E9/L 06/26/2024 12:39 PM [facility] Blood BLOOD SPECIMEN / Unknown Venipuncture / Unknown 06/26/2024 12:25 PM OIL REFINER 06/26/2024 12:31 PM OIL REFINER Calderon Sim MD LAB - HEMATOLOGY ORD MARTÍNEZ [facility] [address] [place] [address], [facility] [phone] * LIPASE BLOOD (06/26/2024 12:25 PM OIL REFINER) Lipase 24 8 - 78 U/L 06/26/2024 1:04 PM OIL REFINER [facility] Blood BLOOD SPECIMEN / Unknown Venipuncture / Unknown 06/26/2024 12:25 PM OIL REFINER 06/26/2024 12:31 PM OIL REFINER Narrative [facility] - 06/26/2024 1:04 PM OIL REFINER Lipase results from the 71lbs Alinity analyzer may not be comparable with other methodologies. Calderon Sim MD LAB - CHEMISTRY ORDE MEHDI [facility] [address] [place] [address], [place] [phone] * AMYLASE BLOOD (06/26/2024 12:25 PM OIL REFINER) Amylase 66 25 - 125 U/L 06/26/2024 1:04 PM OIL REFINER [facility] Blood BLOOD SPECIMEN / Unknown Venipuncture / Unknown 06/26/2024 12:25 PM OIL REFINER 06/26/2024 12:31 PM OIL REFINER Calderon Sim MD LAB - CHEMISTRY LISA HARDING Performing Organization Address [facility] Co de Phone Number [address] [address], [place] [phone] * ALCOHOL ETHYL BLOOD (06/26/2024 12:25 PM OIL REFINER) Ethanol (mg/dL) <10 <10 mg/dL 1:04 PM OIL REFINER [facility] Ethanol Calculated (g/dL) <0.010 <=0.010 g/dL 06/26/2024 1:04 PM OIL REFINER [facility] Blood BLOOD SPECIMEN / Unknown Venipuncture / Unknown 06/26/2024 12:25 PM OIL REFINER 06/26/2024 12:31 PM OIL REFINER Narrative [facility] - 06/26/2024 1:04 PM OIL REFINER Ethanol Interp <10: None Detected. Depression of [employer] SORTER: >100 mg/dl Potentially Critical: >250 mg/dl Potentially [...] - CHEMISTRY LISA HARDING Performing Organization Address City/[facility]/ZIP Co de Phone Number [facility] [address] [place] [address], [place] [phone] from Last 3 Months Advance Directives Documents on File Type Date Recorded Patient Technology Internship Expl anation Adv Directive/Living Will/POA 07/04/2024 12:28 PM Adv Directive/Living Will/POA 06/26/2024 POA Adv Directive/Living Will/POA 06/26/2024 Living will * DNR - IF PULSELESS NO CPR, NO SHOCK (Latest Code Status on File) Date Activated Date Inactivated Comments 06/26/2024 5:48 PM 07/15/2024 3:28 PM Question Answer Comments : DO NOT discontinue a ny active orders without asking attending physician. Care Teams Application Support Analyst Relationship Specialty Start Date End Date Geoff Clement MD [address] [place] [address] PCP - General Family Medicine 06/26/24
== END 2024-08-19 08:35 | disposition home or self-care (01) ==
PROVIDERS: PCP Family Medicine; Visit Provider Family Medicine
DX: K30 Functional dyspepsia (principal)
CPT/HCPCS: 78264; A9541

== ENCOUNTER 2024-10-13 07:06 | Outpatient (RCR) | payer MEDICARE, SELFPAY ==
[2024-08-01 10:00] VITALS: BMI 21.9
== END 2024-10-30 23:59 | disposition home or self-care (01) ==
LOC: ANHWOC 07:06
PROVIDERS: PCP Family Medicine; Visit Provider Family Medicine
DX: L89.152 Pressure ulcer of sacral region, stage 2 (principal)
CPT/HCPCS: 99213; A9270; G0463

== ENCOUNTER 2024-11-10 12:47 | Outpatient (RCR) | payer MEDICARE, SELFPAY ==
[2024-10-31 00:06] VITALS: BMI 21.9
== END 2025-02-08 23:59 | disposition home or self-care (01) ==
LOC: ANHWOC 12:47
PROVIDERS: PCP Family Medicine; Visit Provider Family Medicine
DX: L89.152 Pressure ulcer of sacral region, stage 2 (principal); Z48.00 Encounter for change or removal of nonsurgical wound dressing
CPT/HCPCS: 99213; G0463

== ENCOUNTER 2024-12-21 08:59 | Outpatient (CLI) | payer MEDICARE, SELFPAY ==
--- OUTSIDE RECORDS SUMMARY | 2024-12-21 09:06 | XMS_ITS | Clinical Summary ---
Author Organization [facility] Address [address] [place] [address] Care Team Providers Care Public Accountant Name Role Phone Geoff Clement MD Primary Care Provider [phone] Source Comments [facility],non-owned Affiliates and Associated Physician Practices is amultiple site organization consisting of ambulatory clinics and hospital sitesin [place], [place], [place] and [place]. This disclosure is being madepursuant to the Care Everywhere program and may not contain all information available regarding this patient. Last updated 18.[facility] Allergies No known active allergies Medications * Be aware that medications may not be up to date on this document. Alwaysverify current medications with the patient. benazepril (Lotensin) 40 MG tablet Take 1 (one) tablet by mouth once daily 4 Active metFORMIN ER 24hr (Glucophage XR) 500 MG tablet Take 4 (four) tablets by mouth once daily 4 Active Trulicity 0.75 MG/0.5ML injection Inject 0.75 (three-quarters) mg subcutaneously every 7 days 4 Active amLODIPine (Norvasc) 5 MG tablet Take 1 (one) tablet by mouth once daily 4 Active atorvastatin (Lipitor) 80 MG tablet Take 1 (one) tablet by mouth at bedtime 4 Active acetaminophen (Tylenol) 325 MG tablet Take 2 (two) tablets by mouth every 6 hours as needed Maximum allowable Acetaminophen amount = 4 Grams (4000 mg) / 24 hours. 4 Active aspirin (Aspirin) 81 MG chew tablet Take 1 (one) tablet by mouth once daily Active levETIRAcetam (Keppra) 750 MG tablet Take 2 (two) tablets by mouth 2 times daily Active lidocaine (Lidoderm) 5 % patch Apply 1 (one) patch to skin every 24 hours Apply patch to most painful area and remove after 12 hours. May reapply a new patch 12 hours later. 4 Active loperamide (Imodium) 2 MG capsule Take 1 (one) capsule by mouth 4 times daily as needed for Diarrhea 4 Active Active Problems Problem Noted Date Diagnosed Date [...] Recorded Patient Health Questionnaire-2 Score 0 07/07/2024 [facility] - Occupational Stress Questionnaire Answer Date [...] any time in the past 12 m [facility], were you homeless or living in a [place] health care facility (including now)? No 07/15/2024 Comments Unknown Sex and Gender Information Value Date Recorded Sex Assigned at Not on file Legal Sex Female 11:47 AM BANK MESSENGER Gender Identity Not on file Sexual Orientation Not on file Last Filed Vital Signs Vital Sign Reading Time Taken Comments Blood Pressure 103/67 07/15/2024 9:15 AM BANK MESSENGER Pulse 80 07/15/2024 9:15 AM BANK MESSENGER Temperature 36.9 C (98.5 F) 07/15/2024 9:15 AM BANK MESSENGER Respiratory Rate 18 07/15/2024 9:15 AM BANK MESSENGER Oxygen Saturation 96% 07/15/2024 9:15 AM BANK MESSENGER Inhaled Oxygen Concentration - - Weight 81.6 kg (180 lb) 06/30/2024 9:03 AM BANK MESSENGER Height 172.7 cm (5' 7.99) 06/30/2024 9:03 AM CS T Body Mass Index 27.38 06/30/2024 9:03 AM BANK MESSENGER Plan of Treatment Upcoming Encounters Date Type Department Care Team (Late st Contact Info) Description 03/30/2025 3:00 PM CDT Office Visit [facility] - Neurology [address] [facility] [place] [address] Ibis Duarte MD Udovenko, Valeriya, PA-C [address] [place] [address] Health Maintenance Due Date Last Done Comments BONE DENSITY TESTING 1940 DTAP/TDAP/TD VACCINES (1 - Tdap) 1958 PNEUMOCOCCAL VACCINE 50+ (1 of 2 - PCV) 1958 ZOSTER VACCINE (1 of 2) 1989 Respiratory Syncytial Virus (RSV) Vaccine Pt: or over 60 yrs (1 - 1-dose 75+ series) 2014 COVID-19 VACCINE (2023-2 5 season) 2024 DIABETES RETINOPATHY SCREENING 06/27/2024 DIABETES-FOOT EXAM WITH MONOFILAMENT 06/27/2024 DEPRESSION SCREENING 07/20/2024 06/26/2024 MEDICARE AWV CALENDAR YEAR 2024 DIABETES-HGB A1C 12/26/2024 06/27/2024 INFLUENZA VACCINE (Season Ended) 2025 HEPATITIS B VACCINE Aged Out No longe r eligible based on patient's age to complete this topic HIB VACCINE Aged Out No longer eligi ble based on patient's age to complete this topic HPV VACCINE Aged Out No longer eligi ble based on patient's age to complete this topic MENINGOCOCCAL (Group B) VACC INE SHARED DECISION-MAKING Aged Out No longer eligibl e based on patient's age to complete this topic MENINGOCOCCAL GROUPS A/C/Y/W VACCINE Aged Out No longer eligible b ased on patient's age to complete this topic Procedures Procedure Name Priority Date/Time Associated Diagnosis Comments HEMOGLOBIN A1C Add on 06/27/2024 1:23 AM BANK MESSENGER from Last 3 Months or Most Recently Relevant to Health Maintenance Results * (ABNORMAL) HEMOGLOBIN A1C (06/27/2024 1:23 AM BANK MESSENGER) Hemoglobin A1c 5.7(H) <=5.6 % 06/28/2024 8:[address] [facility] Estimated Average Glucose 117 mg/dL 06/28/2024 8:[address] [facility] Comment: HbA1c Interpretation: Normal : < 5.7% Pre-diabetes: 5.7-6.4% Diabetes: Equal to or greater than 6.5% Test results diagnostic of diabetes should be repeated for confirmation. Treatment target values recommended by ADA and other clinical organizations should be used to evaluate metabolic control in patients. Reference: [place] [employer], Standards of Care in Diabetes -2020 In patients 70 years and older consider HbA1c target range of 7.0-7.5% (Reference: Pranay Garber et al. JAMDA. 2012) The Sebia assay for the measurement of HbA1c is a National Glycohemoglobin Standardization Program (NGSP) certified method. Blood BLOOD SPECIMEN / Unknown Line Draw / Unknown 06/27/2024 1:23 AM BANK MESSENGER 06/27/2024 3:39 PM BANK MESSENGER us Humberto Helton MD LAB - CHEMISTRY ORDERABLES F inal Result [facility] [address] [place] [address], [facility] [phone] from Last 3 Months or Most Recently Relevant to Health Maintenance Insurance [employer] MEDICARE ADV Advance Directives Documents on File Type Date Recorded Patient Park Naturalist Expl anation Adv Directive/Living Will/POA 07/04/2024 12:28 PM Adv Directive/Living Will/POA 06/26/2024 POA Adv Directive/Living Will/POA 06/26/2024 Living will * DNR - IF PULSELESS NO CPR, NO SHOCK (Latest Code Status on File) Date Activated Date Inactivated Comments 06/26/2024 5:48 PM 07/15/2024 3:28 PM Question Answer Comments : DO NOT discontinue a ny active orders without asking attending physician. Care Teams Public Accountant Relationship Specialty Start Date End Date Geoff Clement MD [address] [place] [id number] PCP - General Family Medicine 06/26/24
[2024-12-21 09:33] LABS: Hematocrit 39.1 % (37.0-47.0); Hemoglobin 12.4 g/dL (12.0-15.0); Mean Corpuscular HGB Conc 31.7 g/dl (32-36); Mean Corpuscular Hemoglobin 30.8 pg (26-34); Mean Corpuscular Volume 97.3 fl (80-100); Platelet Count Result 200 k/mm3 (150-375); Red Blood Count 4.02 M/mm3 (4.2-5.4); White Blood Count 8.1 K/mm3 (4.5-10.0)
[2024-12-21 09:44] LABS: Alanine Aminotransferase 17 U/L (6-35); Alkaline Phosphatase 66 U/L (38-126); Anion Gap 4 mmol/L (4-12); Aspartate Amino Transferase 24 U/L (14-36); Bilirubin Direct 0.1 mg/dL (0-0.3); Bilirubin,Total 0.4 mg/dL (0.2-1.3); Blood Urea Nitrogen 18 mg/dL (7-17); Calcium 8.9 mg/dL (8.4-10.2); Carbon Dioxide 29 mmol/L (22-30); Chloride 105 mmol/L (98-107); Estimated Glomerular Filt Rate > 60; Glucose 125 mg/dL (65-110); Sodium 138 mmol/L (137-145); Total Protein 7.5 g/dL (6.3-8.2)
[2024-12-21 09:50] LABS: Iron 70 ug/dL (37-170)
[2024-12-21 09:59] LABS: Percent Iron Saturation 26 % (20-50)
[2024-12-21 11:34] LABS: Hemoglobin A1C 5.6 % (<5.7)
[2024-12-21 16:45] LABS: Creatinine Urine 75.4 mg/dL
[2024-12-21 16:51] LABS: MALB Creatinine Ratio 69.4 mg/g (0-30); Microalbumin Urine Random 52.3 mg/L (0-16.7)
[2024-12-26 11:23] LABS: Testosterone Free 1.5 pg/mL (0.2-3.7); Testosterone Total 20 ng/dL (2-45)
== END 2024-12-21 09:00 | disposition home or self-care (01) ==
PROVIDERS: PCP Family Medicine; Visit Provider Family Medicine
DX: D64.9 Anemia, unspecified (principal); I10 Essential (primary) hypertension; E78.2 Mixed hyperlipidemia; E11.9 Type 2 diabetes mellitus without complications
CPT/HCPCS: 36415; 80048; 80076; 82043; 82728; 83036; 83540; 83550; 84402; 84403; 85027